=== PATIENT | female | born 2000 | race Caucasian/White ===

== ENCOUNTER 2024-03-22 10:45 | Emergency (ER) | payer BC, SELFPAY ==
[2024-03-22] VITALS (18 sets, daily range): BP systolic 112–123; BP diastolic 75–84; PULSE 79–116; TEMP 36.7; O2SAT 98–100; BMI 27.5
--- NOTE | 2024-03-22 11:07 | CT_ITS ---
[address] [address] Patient Name: ELEAZAR JIMENEZ MRN: [id number] date: 2000 Sex: F Assigned Patient Location: ED.MAIN Current Patient Location: Accession/Order Number: [id number] Exam Date: 03/22/2024 11:43 Report Date: 03/22/2024 12:15 At the request of: MARCELO JUSTICE Procedure: CT abdomen pelvis w con EXAMINATION: CT abdomen pelvis w con HISTORY: Pain, hematochezia COMPARISON: No relevant comparison available. TECHNIQUE: Axial, Coronal, and Sagittal images were obtained without and/or with IV contrast as indicated by examination type. Dose reduction techniques were achieved by using automated exposure control and/or adjustment of mA and/or kV according to patient size and/or use of iterative reconstruction technique. FINDINGS: LUNG BASES: No visible pulmonary or pleural disease. LIVER: No enlargement, atrophy, suspicious density, or significant focal lesion. BILIARY: No dilatation or calcification. PANCREAS: No lesion, fluid collection, or abnormal duct dilatation. SPLEEN: No enlargement or focal lesion. ADRENALS: No mass or enlargement. KIDNEYS: No mass, obstruction, or calcification. BOWEL/MESENTERY: Slightly edematous appearance and borderline wall thickening of the transverse colon through rectum, although this length of colon is completely empty. No surrounding inflammatory changes, free air, free fluid. Unremarkable stomach, small bowel, and appendix. AORTA/VASCULAR: No aneurysm or dissection. RETROPERITONEUM: No mass or adenopathy. LYMPH NODES: No adenopathy. URINARY BLADDER: No visible focal wall thickening, lesion, or calculus. PELVIC ORGANS: 1.8 cm irregular cyst within right ovary, likely collapsing follicle. 2.0 cm cyst versus dominant follicle within left ovary. Slightly thickened and poorly defined endometrial cavity, 16 mm. Trace amount of fluid within pelvic cul-de-sac. ABDOMINAL WALL: No mass or hernia. BONES: No bony lesion or fracture. OTHER: Negative. CT/CT abdomen pelvis w con IMPRESSION: 1. Suspect mild colitis. 2. Thickened endometrium with poorly defined margins; correlate with patient's menstrual cycle. If abnormally tender consider pelvic inflammatory disease. 3. Bilateral ovarian cysts of questionable clinical significance. Electronically authenticated by: RAGHU RAYO Date: 03/22/2024 12:15
--- NOTE | 2024-03-22 11:12 | ED_ITS ---
HPI - Abdominal Pain General Chief Complaint: Abdominal Pain Stated Complaint: LOWER ABDOMINAL PAIN, BLOOD IN STOOL, VOMITING Time Seen by Provider: 03/22/24 10:56 Source: patient Mode of arrival: walk-in History of Present Illness HPI narrative: 23-year-old female presents for abdominal pain which started during the middle of the night. She had blood in her stool and she vomited some blood as well. She has had issues like this in the past and at one point was anemic and had to have a blood transfusion. She had endoscopy which did not show any specific findings. She is not sure if she had upper endoscopy or not but she had colon oscopy. Some of the history is provided by her parents who accompany her. The pain is in the mid abdomen and it is moderate. Related Data Previous Rx's ?Medication ?Instructions ?Recorded acetaminophen 300 mg-codeine 30 mg 1 tab PO Q6H PRN pain 5 days #20 03/22/24 tablet tabs ciprofloxacin HCl 500 mg tablet 500 mg PO Q12H #20 tabs 03/22/24 (Cipro) metronidazole 500 mg tablet 500 mg PO TID #30 tabs 03/22/24 ondansetron 4 mg disintegrating 4 mg PO Q6H PRN nausea and 03/22/24 tablet vomiting #20 tabs Allergies Allergy/AdvReac Type Severity Reaction Status Date / Time No Known Drug Allergies Allergy Verified 03/22/24 10:55 Review of Systems ROS Narrative A ten point review of systems is negative except as noted above. PFSH PFSH Social History Little interest or pleasure in doing things: not at all Feeling down, depressed, or hopeless: not at all Exam Narrative Exam Narrative: Nurses note and vital signs reviewed and patient is not hypoxic. General: The patient appears in no apparent distress. Skin: Warm, dry, no pallor noted. There is no rash noted. Head: Normocephalic, atraumatic Eye: Normal conjunctiva, no drainage Ears, Nose, Mouth, and Throat: oral mucosa is moist. Nares patent. Cardiovascular: Regular Rate and Rhythm Respiratory: Patient is in no distress, no accessory muscle use, lungs are clear to auscultation, no wheezing, rales or rhonchi Back: non-tender GI: Mild tenderness in the mid abdomen without distention or masses Musculoskeletal: The patient has no evidence of calf tenderness, no pitting edema, symmetrical pulses noted bilaterally Neurological: A&O, normal speech Psychiatric: Cooperative Constitutional Vital Signs, click to edit/add: Last Vital Signs Temp 98.1 F 03/22/24 10:51 Pulse 95 H 03/22/24 11:55 Resp 21 H 03/22/24 11:55 BP 112/75 03/22/24 11:56 Pulse Ox 99 03/22/24 10:52 O2 Del Method Room Air 03/22/24 10:51 Course Vital Signs Vital signs: Vital Signs Temperature 98.1 F 03/22/24 10:51 Pulse Rate 116 H 03/22/24 10:51 Respiratory Rate 16 03/22/24 10:51 Blood Pressure 123/84 03/22/24 10:51 Pulse Oximetry 100 03/22/24 10:51 Oxygen Delivery Method Room Air 03/22/24 10:51 Temperature 98.1 F 03/22/24 10:51 Pulse Rate 95 H 03/22/24 11:55 Respiratory Rate 21 H 03/22/24 11:55 Blood Pressure 112/75 03/22/24 11:56 Pulse Oximetry 99 03/22/24 10:52 Oxygen Delivery Method Room Air 03/22/24 10:51 MDM - Abdominal Pain MDM Narrative Medical decision making narrative: Colitis is identified on the CAT scan. Her blood work is appropriate. She does not require admission to the hospital at this point. She was given IV Cipro and Flagyl here and prescribed Cipro and Flagyl for home as well as Tylenol 3 and Zofran. Findings are discussed thoroughly with the patient and her mother. She has had some issues with her menstrual cycles and seems to be having episodes of bleeding for a few days at a time, frequently. 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 Differential Diagnosis Differential diagnosis: Likely abdominal pain, constipation, diverticulitis, gastroenteritis and pancreatitis Lab Data Attestation: I reviewed the patient's lab results. Labs: Lab Results 03/22/24 Range/Units 10:57 WBC 9.4 (4.0-11.0) 10^3/uL RBC 5.09 (4.20-5.40) 10^6/uL Hgb 15.4 (12.0-16.0) g/dL Hct 44.0 (36.0-48.0) % MCV 86.4 (81.0-99.0) fL MCH 30.3 (26.7-34.0) pg MCHC 35.0 (29.9-35.2) g/dL RDW 12.2 (11.0-15.0) % Plt Count 269 (150-450) 10^3/uL MPV 9.8 (9.5-13.5) fL Neut % (Auto) 76.7 H (43.0-75.0) % Lymph % (Auto) 17.7 L (20.5-60.0) % [place] % (Auto) 4.3 (1.7-12.0) % Eos % (Auto) 0.2 L (0.9-7.0) % Baso % (Auto) 0.5 (0.2-2.0) % Neut # (Auto) 7.2 H (1.4-6.5) 10^3/uL Lymph # (Auto) 1.7 (1.2-3.8) 10^3/uL [place] # (Auto) 0.4 (0.3-0.8) 10^3/uL Eos # (Auto) 0.0 (0.0-0.7) 10^3/uL Baso # (Auto) 0.1 (0.0-0.1) 10^3/uL Abs Immat Gran (auto) 0.06 H (0.00-0.03) 10^3/uL Imm/Tot Granulo (auto) 0.6 H (0.0-0.5) % Sodium 140 (136-145) mmol/L Potassium 3.8 (3.5-5.1) mmol/L Chloride 106 (98-107) mmol/L Carbon Dioxide 21.1 (21.0-32.0) mmol/L Anion Gap 16.7 BUN 9.0 (7.0-18.0) mg/dL Creatinine 0.83 (0.55-1.02) mg/dL Est GFR ( Amer) >60 (>=60 mL/min/1.73m^2) Est GFR (Non-Af Amer) >60 (>=60 mL/min/1.73m^2) BUN/Creatinine Ratio 10.8 Glucose 93 (74-106) mg/dL Calcium 9.2 (8.5-10.1) mg/dL Total Bilirubin 0.5 (0.2-1.0) mg/dL Direct Bilirubin 0.1 (0.0-0.2) mg/dL AST 17 (15-37) U/L ALT 23 (14-59) U/L Alkaline Phosphatase 56 (46-116) U/L Total Protein 7.7 (6.4-8.2) g/dL Albumin 4.1 (3.4-5.0) g/dL Globulin 3.6 g/dL Albumin/Globulin Ratio 1.1 Amylase 80 (25-115) U/L Lipase 49.0 (16.0-77.0) U/L Serum HCG, Qual Negative (NEGATIVE) Imaging Data CT scan - abdomen: Radiologist's impression: ITS Impressions Abdomen/Pelvis CT 03/22/24 11:07 IMPRESSION: 1. Suspect mild colitis. 2. Thickened endometrium with poorly defined margins; correlate with patient's menstrual cycle. If abnormally tender consider pelvic inflammatory disease. 3. Bilateral ovarian cysts of questionable clinical significance. Electronically authenticated by: RAGHU RAYO Date: 03/22/2024 12:15 Discharge Plan Discharge Chief Complaint: Abdominal Pain Clinical Impression: Colitis Patient Disposition: Home, Self-Care Time of Disposition Decision: 13:10 Condition: Good Mode of Transportation: Private Vehicle Prescriptions / Home Meds: New metronidazole 500 mg tablet 500 mg PO TID Qty: 30 0RF acetaminophen-codeine 300-30 mg tablet 1 tab PO Q6H PRN (Reason: pain) 5 Days Qty: 20 0RF ciprofloxacin HCl [Cipro] 500 mg tablet 500 mg PO Q12H Qty: 20 0RF ondansetron 4 mg tablet,disintegrating 4 mg PO Q6H PRN (Reason: nausea and vomiting) Qty: 20 0RF Print Language: Thai Instructions: Colitis (ED) Referrals: Physician,Non-Staff, MD [Physician] - 1 week
[2024-03-22 11:14] LABS: Basophils Absolute Auto 0.1 10^3/uL (0.0-0.1); Basophils Percent Auto 0.5 % (0.2-2.0); Eosinophils Percent Auto 0.2 % (0.9-7.0); Hemoglobin 15.4 g/dL (12.0-16.0); Immature Granulocytes Abs Auto 0.06 10^3/uL (0.00-0.03); Immature Granulocytes Pct Auto 0.6 % (0.0-0.5); Lymphocytes Absolute Auto 1.7 10^3/uL (1.2-3.8); Lymphocytes Percent Auto 17.7 % (20.5-60.0); Mean Corpuscular Hemoglobin 30.3 pg (26.7-34.0); Mean Corpuscular Volume 86.4 fL (81.0-99.0); Mean Platelet Volume 9.8 fL (9.5-13.5); Monocytes Absolute Auto 0.4 10^3/uL (0.3-0.8); Monocytes Percent Auto 4.3 % (1.7-12.0); Neutrophils Absolute Auto 7.2 10^3/uL (1.4-6.5); Neutrophils Percent Auto 76.7 % (43.0-75.0); Platelet Count 269 10^3/uL (150-450); Red Blood Count 5.09 10^6/uL (4.20-5.40); Red Cell Distribution Width 12.2 % (11.0-15.0); White Blood Count 9.4 10^3/uL (4.0-11.0)
[2024-03-22 11:24] LABS: HCG Qualitative NEGATIVE (NEGATIVE); Internal Control Within Normal Limits
[2024-03-22 11:25] LABS: Alanine Aminotransferase 23 U/L (14-59); Albumin Globulin Ratio 1.1; Albumin Level 4.1 g/dL (3.4-5.0); Alkaline Phosphatase 56 U/L (46-116); Amylase 80 U/L (25-115); Anion Gap 16.7; Aspartate Amino Transferase 17 U/L (15-37); BUN Creatinine Ratio 10.8; Bilirubin Direct 0.1 mg/dL (0.0-0.2); Bilirubin Total 0.5 mg/dL (0.2-1.0); Calcium 9.2 mg/dL (8.5-10.1); Carbon Dioxide 21.1 mmol/L (21.0-32.0); Chloride 106 mmol/L (98-107); Estimated GFR (African America >60 (>=60 mL/min/1.73m^2); Estimated GFR (Non-African Ame >60 (>=60 mL/min/1.73m^2); Globulin 3.6 g/dL; Glucose 93 mg/dL (74-106); Potassium 3.8 mmol/L (3.5-5.1); Sodium 140 mmol/L (136-145); Total Protein 7.7 g/dL (6.4-8.2)
[2024-03-22] MEDS: PANTOPRAZOLE SODIUM 40 MG VIAL IV (11:34)
[2024-03-22] MEDS: CIPROFLOXACIN IN 5 % DEXTROSE 400 MG/200 ML PREMIX 200 MG IV (12:33)
[2024-03-22] MEDS: METRONIDAZOLE/SODIUM CHLORIDE 500 MG/100 ML PREMIX 100 MG IV (13:33)
== END 2024-03-22 14:37 | disposition home or self-care (01) ==
PROVIDERS: Emergency Provider Emergency Medicine; PCP Family Medicine
DX: K52.9 Noninfective gastroenteritis and colitis, unspecified (principal); R93.89 Abnormal findings on diagnostic imaging of other specified body structures; N83.202 Unspecified ovarian cyst, left side; N83.201 Unspecified ovarian cyst, right side
CPT/HCPCS: 36415; 74177; 80048; 80076; 82150; 83690; 84703; 85025; 96365; 96367; 96375; 99285; J0744; J1836; Q9967

== ENCOUNTER 2024-08-18 12:01 | Outpatient (REF) | payer SELFPAY ==
[2024-08-22 13:08] LABS: Age Gdln ACOG Testing Note (.); IGP, rfx Aptima HPV ASCU Note (.)
== END 2024-08-18 12:02 | disposition home or self-care (01) ==
LOC: LAB 12:01
PROVIDERS: PCP Family Medicine; Visit Provider Obstetrics & Gynecology
DX: Z01.419 Encounter for gynecological examination (general) (routine) without abnormal findings (principal)
CPT/HCPCS: 88175

== ENCOUNTER 2024-09-12 12:31 | Outpatient (RCR) | payer OTHER, SELFPAY ==
[2024-09-12 14:04] LABS: HCG Quantitative 230 mIU/mL
[2024-09-15 09:04] LABS: HCG Quantitative 705 mIU/mL
== END 2024-09-25 10:53 | disposition home or self-care (01) ==
LOC: LAB 12:31
PROVIDERS: PCP Family Medicine; Visit Provider Obstetrics & Gynecology
DX: N92.6 Irregular menstruation, unspecified (principal)
CPT/HCPCS: 36415; 84702

== ENCOUNTER 2024-10-14 09:22 | Outpatient (OUT) | payer OTHER, SELFPAY ==
--- OUTSIDE RECORDS SUMMARY | 2024-10-14 09:24 | XMS_ITS | CCD ---
Author Organization [facility] Care Team Providers Care Crawler Crane Operator Name Role Phone REQUEST, DR PAGE LISTED Consulting Unavaila ble REQUEST, DR PAGE LISTED Admitting Unavaila ble RODRIGUEZ, DR STEFFANY Harrison Primary Care Unavailable REQUEST, DR PAGE LISTED Attending Unavaila ble REQUEST, DR PAGE LISTED Attending Unavaila ble REQUEST, DR PAGE LISTED Consulting Unavaila ble RODRIGUEZ, DR STEFFANY Harrison Primary Care Unavailable REQUEST, DR PAGE LISTED Admitting Unavaila ble BALL, DR DUGGAN Attending Unavailable BALL, DR DUGGAN Consulting Unavailable RODRIGUEZ, DR STEFFANY Harrison Primary Care Unavailable BALL, DR DUGGAN Admitting Unavailable ROSS, GLEN Admitting Unavailable ROSS, GLEN Attending Unavailable ROSS, GLEN Consulting Unavailable RODRIGUEZ, DR STEFFANY Harrison Primary Care Unavailable Unavailable Primary Care Provider LUIS FERNANDO Lee Attending Unavailable Medications Current Medications Medication Drug Class(es) Dates Sig (Normalized) Sig (Original) docusate sodium 100 mg oral capsule (1 source) Start: 10-11-2024 End: 01-09-2025 take 1 capsule by mouth twice daily as needed for constipation docusate sodium (Colace) 100 MG capsule Indications: Constipation, unspecified constipation type Take 1 capsule (100 mg) by mouth 2 (two) times a day as needed for constipation 30 capsule 2 10/11/2024 01/09/2025 Active minocycline 50 mg oral capsule (5 sources) Tetracycline-cla ss Drug Start: 11-29-2023 End: 10-13-2024 take 1 capsule by mouth twice daily minocycline 50 MG capsule Indications: Acne, unspecified acne type TAKE 1 CAPSULE BY MOUTH TWICE A DAY 60 capsule 2 11/29/2023 10/13/2024 Discontinued (Therapy completed) Vit-Fe Fumarate-FA ( Vitamins) 28-0.8 MG tablet (2 sources) Start: 09-12-2024 End: 09-12-2025 take 1 tablet by mouth once daily Vit-Fe Fumarate-FA ( Vitamins) 28-0.8 MG tablet Indications: Missed menses Take 1 tablet by mouth Daily 30 tablet 11 09/12/2024 09/12/2025 Active Completed/Discontinued Medications Medication Drug Class(es) Dates Sig (Normalized) Sig (Original) ethinyl estradiol 0.03 mg / levonorgestrel 0.15 mg oral tablet (2 sources) Progestin, Estrogen, Progestin-containi ng Intrauterine Device Start: 07-13-2024 End: 10-05-2024 levonorgestrel-eth inyl estradiol (Altavera) 0.15-30 MG-MCG tablet Indications: Encounter for other general counseling and advice on contraception TAKE 1 TABLET BY MOUTH EVERY DAY FOR 84 DAYS 84 tablet 3 07/13/2024 08/18/2024 Discontinued (Therapy completed) Ethinyl Estradiol / norgestimate (2 sources) Progestin, Estrogen Start: 09-01-2023 End: 08-18-2024 take 1 tablet by mouth once daily norgestimate-ethin yl estradiol (Ortho Tri-Cyclen LO) 0.18/0.215/0.25 MG-25 MCG tablet Indications: Encounter for contraceptive management, unspecified type Take 1 tablet by mouth Daily 84 tablet 09/01/2023 08/18/2024 Discontinued (Therapy completed) Start: 09-01-2023 take 1 tablet by luis miguel th once daily norgestimate-ethinyl estradiol (Ortho Tri-Cyclen LO) 0.18/0.215/0.25 MG-25 MCG tablet Indications: Encounter for contraceptive management, unspecified type Take 1 tablet by mouth Daily 84 tablet 09/01/2023 Active Problems Active Problems Problem Classification Problem Date Documented Da te Episodic/Chronic Immunizations and screening for infectious disease (4 sources) Encounter for immunization; Translations: [ENCOUNTER FOR IMMUNIZATION] Onset: 04-08-2021 Episodic Menstrual disorders (7 sources) Irregular periods; Translations: [Irregular menstruation, unspecified] Onset: 08-18-2024 08-18-2024 Chronic Other female genital disorders (5 sources) Allegra; Translations: [Allegra] Onset: 08-18-2024 08-18-2024 Chronic Other and delivery including normal (2 sources) ; Translations: [Encounter for supervision of normal , unspecified, unspecified trimester] 10-13-2024 Episodic Unclassified (3 sources) CONTACT W/AND (SUSP) EXPOS COVID-19; Translations: [CONTACT W/AND (SUSP) EXPOS COVID-19] Onset: 04-27-2021 Past or Other Problems Problem Classification Problem Date Documented Da te Episodic/Chronic Unclassified (1 source) CONTACT W/AND (SUSP) EXPOS COVID-19; Translations: [CONTACT W/AND (SUSP) EXPOS COVID-19] Onset: 04-21-2021 Results Test Name Value Interpretation Reference Range Facility HCG ( test) Ql (U)o n 10-13-2024 Interpretation and review of laboratory results Abnormal [facility] re Preg Test, Ur Positive Negative [facility] Urinalysis macro (dipstick) panel (U)on 10-13-2024 Bilirubin, UA Negative Negative - 4(70) +++ mg/dL [facility] Blood, UA Positive Negative - 50 Iam/mcL [facility] Comment on above: trace Clarity, UA Clear [facility] re Color, [facility]A Yellow [facility] Glucose, [facility] Negative Negative - 1999(110) ++++ mg/dL [facility] Ketones, UA Negative Negative - 160(16) ++++ mg/dL [facility] Leukocytes, UA Positive Negative - 500+++ Zakia/mcL [facility] Comment on above: small Nitrite, UA Negative Negative - Positive [facility] pH, UA 6.5 5 - 9 [facility] Protein, UA Negative Negative - 1999(20) ++++ mg/dL [facility] Spec Grav, UA 1.02 1 - 1.03 [facility] Urobilinogen, UA 0.2 0.2 - 12 mg/dL [facility]H PREG QUANT HCGon 025 HCG QUANTITATIVE 230 mIU/mL [facility] Comment on above: 5-50 0.2-1 WEEK 50-500 1-2 WEEKS 100-5,000 2-3 WEEKS 500-10,000 3-4 WEEKS 1,000-50,000 4-5 WEEKS 10,000-100,000 5-6 WEEKS 15,000-200,000 6-8 WEEKS 10,000-100,000 2-3 MONTHS [facility] e IGP,APTIMA HPV,AGE GDLNon AGE GDLN ACOG TESTING Note . [facility] Comment on above: TESTS RESULT FLAG UN [facility] REF RANGE LAB Clinician Provided Cytology Information Source.............Cervix;Endocervix No. of containers..01 ThinPrep Vial Age Algo ACOG Cheli... FLAG LEGEND: L-Low Normal,H-High Normal,LL-Alert Low,HH-Alert High <-Panic Low,>-Panic High,A-Abnormal,AA-Critical Abnormal Performed at: 01 =G [facility] [place] [address] Bebe Pleitez MD, IGP, RFX APTIMA HPV ASCU Note . [facility] Comment on above: TESTS RESULT FLAG UN ITS REF RANGE LAB DIAGNOSIS: 02 NEGATIVE FOR INTRAEPITHELIAL LESION OR MALIGNANCY. Specimen adequacy: 02 Satisfactory for evaluation. Endocervical and/or squamous metaplastic cells (endocervical component) are present. Performed by: 02 Paulo Loya Metal Bonding Crib Attendant (ASCP) . 02 Note: Note 02 The Pap smear is a screening test designed to aid in the detection of premalignant and malignant conditions of the uterine cervix. It is not a diagnostic procedure and should not be used as the sole means of detecting cervical cancer. Both false-positive and false-negative reports do occur. Test Methodology: Note 02 This liquid based ThinPrep(R) pap test was screened with the use of an image guided system. . 02 The HPV DNA reflex criteria were not met with this specimen result therefore, no HPV testing was performed. FLAG LEGEND: L-Low Normal,H-High Normal,LL-Alert Low,HH-Alert High <-Panic Low,>-Panic High,A-Abnormal,AA-Critical Abnormal Performed at: [address] [id number] Bebe Pleitez MD, Performed at: =G - [facility] [id number] Yarn Tester: Bebe Pleitez MD, Phone: [phone] Performed at: [facility] [address] [id number] Yarn Tester: Bebe Pleitez MD, Phone: [phone] [facility]SPAT[facility] CERVIX ENDOCERVIX [facility] Covid-19 PCR ([facility])on 03-27 SARS-CoV-2 (COVID-19) RNA SHANTHI+probe Ql (Unsp spec) Not detected Normal NOT DETECTED [facility] Comment on above: Result Comment: This test is not yet approved or cleared by the [place] FDA. When there are no FDA-approved or cleared tests available, and other criteria are met, FDA can make tests available under an emergency access mechanism called an Emergency Use Authorization (EUA). The EUA for this test is supported by the Track Service Worker of Health and Human Service's (HHS's) declaration that circumstances exist to justify the emergency use of in vitro diagnostics for the detection and/or diagnosis of the virus that causes COVID-19. This EUA will remain in effect (meaning this test can be used) for the duration of the COVID-19 declaration justifying emergency of IVDs, unless it is terminated or revoked by FDA (after which the test may no longer be used). When diagnostic testing is negative, the possibility of a false negative should be considered in the context of a patient's recent exposures and the presence of clinical signs and symptoms consistent with SARS-CoV-2. Performed By: #### C TB #### [facility] [address] [place] [address] Dr. Chitra Pineda OBSOLETEon 09-12-2019 OBSOLETE Refill ([place]) DARIEN JIMENEZ ([id number]) 1 F Date Time Provider Department 09/12/19 DOUG OLVERA During your visit today, we recorded the following information about you: Allergies As of Date: 09/12/2019 (No Known Allergies) Date Reviewed: 06/23/2019 Reviewed by: Swathi Keyes - Fully Assessed Reason for Visit: Refill Request [94] Order(s):cyanocobalami n (VITAMIN B-12) 1,000 mcg/mLInject 1 mL intramuscularly once every month for 3 doses.Disp: 3 mLRfl: 0 Prescriptions as of 09/12/2019 Sig: CYANOCOBALAMIN (VIT B-12) 1,0* Inject 1 mL intramuscularly o* FERROUS SULFATE 325 MG (65 MG* Take 1 tablet by mouth twice * PANTOPRAZOLE 40 MG TABLET,DEL* DOXYCYCLINE HYCLATE 100 MG CA* Take 100 mg by mouth twice da* LEVONORGESTREL 0.15 MG-ETHINY* Take 1 tablet by mouth once d* Problem List As Of Date 09/12/2019 Noted Resolved Chest pain, unspecified [R07.9] 05/05/2019 Iron deficiency anemia [D50.9] 05/01/2019 Weakness [R53.1] 05/05/2019 Tachycardia [R00.0] 05/05/2019 Abnormal electrocardiogram (ECG) (EKG) [R94.31] 05/05/2019 Dyspnea on exertion [R06.00] 05/05/2019 Other fecal abnormalities [R19.5] 05/05/2019 Prescriptions ordered this encounter Disp Refills Start End CYANOCOBALAMIN (VIT B-12) 1,000 MCG/* 3 mL 0 09/13/2019 11/13/2019 Route: INTRAMUSCULA Sig: Inject 1 mL intramuscularly once every month for 3 doses. Medications Discontinued During This Encounter cyanocobalamin (VITAMIN B-12) 1,000 * 3 mL 0 06/23/2019 09/13/2019 Route: INTRAMUSCULAR Sig: Inject 1 mL intramuscularly once every month for 3 doses. Disc: Reason for discontinue is not on file. Encounter Status:Closed by DOUG OLVERA [facility] ([place]) DARIEN JIMENEZ ([id number]) 1 F Date Time Provider Department 06/23/19 4:00 PM DOUG OLVERA During your visit today, we recorded the following information about you: Temperature Pulse Respiration Blood pressure 98.6 degrees 78/minute 18/minute 125/71 Weight Height 62.6 kg 1.61 m July Keyes 06/23/2019 4:00 PM Signed Patient states still having bouts of fatigue and SOB when exercising. Doug Olvera MD 06/23/2019 5:02 PM Signed Some elements of this note have been reviewed and copied from clinic note dated May 24, 2019. CC: Iron deficiency anemia. ASSESSMENT: 19 yo woman with symptomatic iron deficiency anemia due to menstrual blood loss and possible poor absorption of iron. Work up for celiac disease revealed no evidence of Celiac disease. She is responding nicely to oral iron but her B12 level is very low. This may have to do with her chronic low dose antibiotic use. PLAN: 1. Continue oral iron 2. Proceed with B12 IM x 3 weekly doses. 3. Recheck labs in 6 months with PCP. 4. Follow up PRN. CC: severe Iron deficiency anemia HPI: Updated Visit, June 23, 2019: Alf returns with her father Cody to review findings and have noted that her hemoglobin has recovered to 12.8 and her iron studies are also improving. However her vitamin B12 level is less than 300 on a fairly normal diet. I'm not exactly sure why she is not absorbing B12 on a normal diet but I have a feeling it may be related to her chronic and low-dose antibiotic use as treatment for acne vulgaris. She still feels fatigued which may be related to the low B12 level or residual recovery from mononucleosis. Initial Visit, May 24, 2019: Darien Jimenez presents today at the request of Dr. Rodriguez for oncology evaluation. She is a 19 year old female who presents accompanied by her mother Arnav and father Cody. She is a history of heavy menstrual periods and therefore was placed on control pills in July 2018 and is on doxycycline for acne vulgaris. She is a history of mononucleosis and 2017. She was seen in the emergency room on May 01, 2019 for several month history of progressive dyspnea with light exertion and a one-month history of chest tightness and pain with dyspnea. During her ER visit she was noted to have a hemoglobin of 7.2 MCV 64 platelets 389 white blood cell count 6.0 and required 2 units packed red blood cells for an abnormal EKG consistent with sinus tachycardia. Ferritin was 2.0 iron 9.0 TIBC 490 iron saturation 1.8% she'll elevated d-dimer and had a CT angiogram that demonstrated 2 small 4 mm nodules in the right lung most likely postinflammatory or infectious but otherwise no evidence of pulmonary emboli. Additionally she was found to have a Hemoccult that was positive for occult blood. She presents today approximate 3 weeks following her ER visit it is still having some mild dyspnea as well as tachycardia. She had an endoscopy with colonoscopy yesterday there were some concerns for possible celiac disease. Biopsies results are pending. I reviewed the possible risks for her significant anemia and primarily focused on heavy menses which she is currently being treated for. There is a question of whether or not the doxycycline could've cause some of this but there is a very very low incidence of doxycycline-induced hemolysis is highly unlikely. More likely is her inability to absorb enough iron to keep up with her lifetime blood loss. She'll likely take some time to equilibrate and have recommended that she continue her oral iron at this time making sure that she's not interfering with Prilosec and keeping an acid environment in order to optimize her iron absorption. ECOG PERFORMANCE STATUS: 1 REVIEW OF SYSTEMS Per HPI and otherwise negative by full review organ systems. MEDICATIONS: ferrous sulfate 325 mg (65 mg iron) tablet Take 1 tablet by mouth twice daily. pantoprazole DR (PROTONIX) 40 mg tablet doxycycline hyclate (VIBRAMYCIN) 100 mg capsule Take 100 mg by mouth twice daily. levonorgestrel-ethinyl estradiol (LEVORA 0.15/30, 28,) 0.15-0.03 mg per tab Take 1 tablet by mouth once daily. ALLERGIES: ALLERGIES No Known Allergies PHYSICAL EXAMINATION: Vitals: BP 125/71 Pulse 78 Temp (Src) 98.6 (Oral) Resp 18 Ht 5' 3.386 (1.61m) Wt 138 lb (62.6kg) SpO2 100% BMI 24.15 kg/(m2). Body surface area is 1.67 meters squared. General Appearance: Well appearing, alert, in no acute distress, well-hydrated, well nourished.. Skin: Skin color, texture, turgor normal, no suspicious rashes or lesions. Small medrano of acne and bumps showing on her forehead and cheeks. Eyes: Anicteric sclera. Pupils are equally round and reactive to light. Extraocular movements are intact. . Neck: Supple, no adenopathy; thyroid symmetric, normal size, no bruits. Musculoskeletal: No joint swelling, deformity. Neurologic: Gait normal. Nonfocal. LABORATORY VALUES: Reviewed in HPI RADIOLOGY REVIEW: Images reviewed by me in the presence of patient. DIAGNOSIS: (D50.0) Iron deficiency anemia due to chronic blood loss (primary encounter diagnosis) (D51.0) Vitamin B12 deficiency anemia due to intrinsic factor deficiency Doug Olvera MD CC: Steffany Rodriguez MD [id number] [facility] [id number] Referring Provider: DOUG OLVERA [[id number]] Allergies As of Date: 06/23/2019 (No Known Allergies) Date Reviewed: 06/23/2019 Reviewed by: Swathi Keyes - Fully Assessed Reason for Visit: Anemia [6] Cmt: follow up lab Primary Visit Diagnosis:Iron deficiency anemia due to chronic blood loss [D50.0] Other Visit Diagnosis:Vitamin B12 deficiency anemia due to intrinsic factor deficiency [D51.0] Order(s):cyanocobalami n (VITAMIN B-12) 1,000 mcg/mL solnInject 1 mL intramuscularly once every month for 3 doses.Disp: 3 mLRfl: 0 Disposition: Return if symptoms worsen or fail to improve. Follow-up and Disposition History Recorded Prescriptions as of 06/23/2019 Sig: FERROUS SULFATE 325 MG (65 MG* Take 1 tablet by mouth twice * PANTOPRAZOLE 40 MG TABLET,DEL* DOXYCYCLINE HYCLATE 100 MG CA* Take 100 mg by mouth twice da* LEVONORGESTREL 0.15 MG-ETHINY* Take 1 tablet by mouth once d* CYANOCOBALAMIN (VIT B-12) 1,0* Inject 1 mL intramuscularly o* Problem List As Of Date 06/23/2019 Noted Resolved Chest pain, unspecified [R07.9] 05/05/2019 Iron deficiency anemia [D50.9] 05/01/2019 Weakness [R53.1] 05/05/2019 Tachycardia [R00.0] 05/05/2019 Abnormal electrocardiogram (ECG) (EKG) [R94.31] 05/05/2019 Dyspnea on exertion [R06.09] 05/05/2019 Other fecal abnormalities [R19.5] 05/05/2019 Visit Notes: >> Swathi Keyes WedJun 23, 2019 3:58 PM Status: Signed Patient states still having bouts of fatigue and SOB when exercising. Encounter Status:Closed by DOUG OLVERA MD on 06/23/19 [facility] PROGRESSon 06-23-2019 PROGRESS HNO ID: [id number] Author: Doug Olvera Service: ? Author Type: Physician Type: Progress Notes Filed: 06/23/2019 5:02 PM Note Text: Some elements of this note have been reviewed and copied from clinic note dated May 24, 2019. CC: Iron deficiency anemia. ASSESSMENT: 19 yo woman with symptomatic iron deficiency anemia due to menstrual blood loss and possible poor absorption of iron. Work up for celiac disease revealed no evidence of Celiac disease. She is responding nicely to oral iron but her B12 level is very low. This may have to do with her chronic low dose antibiotic use. PLAN: 1. Continue oral iron 2. Proceed with B12 IM x 3 weekly doses. 3. Recheck labs in 6 months with PCP. 4. Follow up PRN. CC: severe Iron deficiency anemia HPI: Updated Visit, June 23, 2019: Alf returns with her father Cody to review findings and have noted that her hemoglobin has recovered to 12.8 and her iron studies are also improving. However her vitamin B12 level is less than 300 on a fairly normal diet. I'm not exactly sure why she is not absorbing B12 on a normal diet but I have a feeling it may be related to her chronic and low-dose antibiotic use as treatment for acne vulgaris. She still feels fatigued which may be related to the low B12 level or residual recovery from mononucleosis. Initial Visit, May 24, 2019: Darien Jimenez presents today at the request of Dr. Rodriguez for oncology evaluation. She is a 19 year old female who presents accompanied by her mother Arnav and father Cody. She is a history of heavy menstrual periods and therefore was placed on control pills in July 2018 and is on doxycycline for acne vulgaris. She is a history of mononucleosis and 2017. She was seen in the emergency room on May 01, 2019 for several month history of progressive dyspnea with light exertion and a one-month history of chest tightness and pain with dyspnea. During her ER visit she was noted to have a hemoglobin of 7.2 MCV 64 platelets 389 white blood cell count 6.0 and required 2 units packed red blood cells for an abnormal EKG consistent with sinus tachycardia. Ferritin was 2.0 iron 9.0 TIBC 490 iron saturation 1.8% she'll elevated d-dimer and had a CT angiogram that demonstrated 2 small 4 mm nodules in the right lung most likely postinflammatory or infectious but otherwise no evidence of pulmonary emboli. Additionally she was found to have a Hemoccult that was positive for occult blood. She presents today approximate 3 weeks following her ER visit it is still having some mild dyspnea as well as tachycardia. She had an endoscopy with colonoscopy yesterday there were some concerns for possible celiac disease. Biopsies results are pending. I reviewed the possible risks for her significant anemia and primarily focused on heavy menses which she is currently being treated for. There is a question of whether or not the doxycycline could've cause some of this but there is a very very low incidence of doxycycline-induced hemolysis is highly unlikely. More likely is her inability to absorb enough iron to keep up with her lifetime blood loss. She'll likely take some time to equilibrate and have recommended that she continue her oral iron at this time making sure that she's not interfering with Prilosec and keeping an acid environment in order to optimize her iron absorption. ECOG PERFORMANCE STATUS: 1 REVIEW OF SYSTEMS Per HPI and otherwise negative by full review organ systems. MEDICATIONS: ferrous sulfate 325 mg (65 mg iron) tablet Take 1 tablet by mouth twice daily. pantoprazole DR (PROTONIX) 40 mg tablet doxycycline hyclate (VIBRAMYCIN) 100 mg capsule Take 100 mg by mouth twice daily. levonorgestrel-ethinyl estradiol (LEVORA 0.15/30, 28,) 0.15-0.03 mg per tab Take 1 tablet by mouth once daily. ALLERGIES: ALLERGIES No Known Allergies PHYSICAL EXAMINATION: Vitals: BP 125/71 Pulse 78 Temp (Src) 98.6 (Oral) Resp 18 Ht 5' 3.386 (1.61m) Wt 138 lb (62.6kg) SpO2 100% BMI 24.15 kg/(m2). Body surface area is 1.67 meters squared. General Appearance: Well appearing, alert, in no acute distress, well-hydrated, well nourished.. Skin: Skin color, texture, turgor normal, no suspicious rashes or lesions. Small medrano of acne and bumps showing on her forehead and cheeks. Eyes: Anicteric sclera. Pupils are equally round and reactive to light. Extraocular movements are intact. . Neck: Supple, no adenopathy; thyroid symmetric, normal size, no bruits. Musculoskeletal: No joint swelling, deformity. Neurologic: Gait normal. Nonfocal. LABORATORY VALUES: Reviewed in HPI RADIOLOGY REVIEW: Images reviewed by me in the presence of patient. DIAGNOSIS: (D50.0) Iron deficiency anemia due to chronic blood loss (primary encounter diagnosis) (D51.0) Vitamin B12 deficiency anemia due to intrinsic factor deficiency Doug Olvera MD CC: Steffany Rodriguez MD [address] [place] [address] [place] [id number] [facility] CNOVSPon 05-24-2019 CNOVSP Visit (SP) Office ([place]) DARIEN JIMENEZ ([id number]) 1 F Date Time Provider Department 05/24/19 4:15 PM DOGU OLVERA During your visit today, we recorded the following information about you: Temperature Pulse Respiration Blood pressure 97.3 degrees 79/minute 18/minute 127/73 Weight Height Last Period 61 kg 1.61 m 05/10/19 Doug Olvera MD 05/25/2019 12:15 PM Signed Consultation requested by Dr. Rodriguez for an opinion regarding Ms. Darien Jimenez, and my final recommendations will be communicated back to the requesting physician by way of shared medical record or letter via [place] mail. ASSESSMENT AND PLAN: ASSESSMENT: 19 yo woman with symptomatic iron deficiency anemia due to menstrual blood loss and possible poor absorption of iron. Work up for celiac disease is pending and biopsies from EGD and Colonoscopy are pending from 05/23/2019. PLAN: 1. Continue oral iron 2. F/U in 4 weeks with labs. Preceding. 3. Obtain results of GI workup and biopsies from [place]. Doug Olvera MD CC: severe Iron deficiency anemia HPI: Darien Jimenez presents today at the request of Dr. Rodriguez for oncology evaluation. She is a 19 year old female who presents accompanied by her mother Arnav and father Cody. She is a history of heavy menstrual periods and therefore was placed on control pills in July 2018 and is on doxycycline for acne vulgaris. She is a history of mononucleosis and 2017. She was seen in the emergency room on May 01, 2019 for several month history of progressive dyspnea with light exertion and a one-month history of chest tightness and pain with dyspnea. During her ER visit she was noted to have a hemoglobin of 7.2 MCV 64 platelets 389 white blood cell count 6.0 and required 2 units packed red blood cells for an abnormal EKG consistent with sinus tachycardia. Ferritin was 2.0 iron 9.0 TIBC 490 iron saturation 1.8% she'll elevated d-dimer and had a CT angiogram that demonstrated 2 small 4 mm nodules in the right lung most likely postinflammatory or infectious but otherwise no evidence of pulmonary emboli. Additionally she was found to have a Hemoccult that was positive for occult blood. She presents today approximate 3 weeks following her ER visit it is still having some mild dyspnea as well as tachycardia. She had an endoscopy with colonoscopy yesterday there were some concerns for possible celiac disease. Biopsies results are pending. I reviewed the possible risks for her significant anemia and primarily focused on heavy menses which she is currently being treated for. There is a question of whether or not the doxycycline could've cause some of this but there is a very very low incidence of doxycycline-induced hemolysis is highly unlikely. More likely is her inability to absorb enough iron to keep up with her lifetime blood loss. She'll likely take some time to equilibrate and have recommended that she continue her oral iron at this time making sure that she's not interfering with Prilosec and keeping an acid environment in order to optimize her iron absorption. ECOG PERFORMANCE STATUS: 1 REVIEW OF SYSTEMS Per HPI and otherwise as noted below. CONSTITUTIONAL: No fevers, chills, nightsweats, unintended weight loss HEENT: Denies frequent or severe heaches, nasal congestion/sinus symptoms, problematic allergy problems. EYES: No diplopia or blurry vision. CARDIOVASCULAR: No chest pain, PND, ankle edema. PULM: No unexplained cough. GI: No dysphagia/odynophagia, problematic reflux, constipation, diarrhea, changes in stool habits, hematochezia, melena. : No new urinary complaints, including dysuria, gross hematuria or pyuria. NEURO: No new balance problems, peripheral weakness/paresthesias or numbness of concern. MUSC-SKEL: No new joint pain, swelling, or erythema. PSY: No concerns regarding depression, anxiety or panic. INTEGUMENTARY: No new skin changes (rash, new or changing mole, new growth) HEMATOLOGIC/LYMPHATIC/ IMMUNOLOGIC:Negative for prolonged bleeding, bruising easily or swollen nodes MEDICATIONS: levonorgestrel-ethinyl estradiol (LEVORA 0.15/30, 28,) 0.15-0.03 mg per tab Take 1 tablet by mouth once daily. ALLERGIES: ALLERGIES Allergies not on file PHYSICAL EXAMINATION: Vitals: There were no vitals taken for this visit. There is no height or weight on file to calculate BSA. General Appearance: Well appearing, alert, in no acute distress, well-hydrated, well nourished.. Skin: Skin color, texture, turgor normal, no suspicious rashes or lesions. Eyes: Anicteric sclera. Pupils are equally round and reactive to light. Extraocular movements are intact. . Ears: External ears normal, canals clear. Neck: Supple, no adenopathy; thyroid symmetric, normal size, no bruits. Lungs: lungs clear to auscultation. No wheezing, rhonchi, rales. Heart: RRR without murmur, gallop, or rubs. No ectopy. Abdomen: Normal abdominal exam, Abdomen soft, non-tender. Bowel sounds normal. No masses, organomegaly. Extremities: No deformities, edema, skin discoloration, clubbing or cyanosis. Good capillary refill. . Musculoskeletal: No joint swelling, deformity, or tenderness. Peripheral Pulses: Normal. Neurologic: Gait normal. Reflexes normal and symmetric. Sensation grossly intact.. Lymph Nodes: No cervical lymphadenopathy, No supraclavicular lymphadenopathy and No axillary lymphadenopathy.. LABORATORY VALUES: Reviewed in HPI RADIOLOGY REVIEW: Images reviewed by me in the presence of patient. DIAGNOSIS: (D50.0) Iron deficiency anemia due to chronic blood loss (primary encounter diagnosis) Plan: CBC + DIFF (FOR REMOTE [facility] USE), COMP METABOLIC PANEL, IRON + TIBC, FERRITIN BLD, RETIC COUNT, VITAMIN B12 BLOOD, FOLATE SERUM CC: SELF Steffany Rodriguez MD [address] [facility] [id number] Doug Olvera MD Referring Provider: SELF [200] Allergies As of Date: 05/24/2019 (No Known Allergies) Date Reviewed: 05/24/2019 Reviewed by: Tawny Westbrook - Fully Assessed Reason for Visit: Anemia [6] Cmt: new patient consult Primary Visit Diagnosis:Iron deficiency anemia due to chronic blood loss [D50.0] Order(s):CBC + DIFF (FOR REMOTE [facility] USE) [SQRCBCDF] Order #: [id number] FUTURE COMP METABOLIC PANEL [SQCMP] Order #: [id number] FUTURE IRON + TIBC [SQIRON] Order #: [id number] FUTURE FERRITIN BLD [SQFERR] Order #: [id number] FUTURE RETIC COUNT [SQRETIC] Order #: [id number] FUTURE VITAMIN B12 BLOOD [SQB12] Order #: [id number] FUTURE FOLATE SERUM [SQSERFOL] Order #: [id number] FUTURE Disposition: Return in about 4 weeks (around 06/21/2019). Follow-up and Disposition History Recorded Prescriptions as of 05/24/2019 Sig: FERROUS SULFATE 325 MG (65 MG* Take 1 tablet by mouth twice * PANTOPRAZOLE 40 MG TABLET,DEL* DOXYCYCLINE HYCLATE 100 MG CA* Take 100 mg by mouth twice da* LEVONORGESTREL 0.15 MG-ETHINY* Take 1 tablet by mouth once d* Problem List As Of Date: 05/24/2019 (None) Encounter Status:Closed by DOUG OLVERA MD on 05/25/19 [facility] PROGRESSon 05-24-2019 PROGRESS HNO ID: [id number] Author: Doug Olvera Service: ? Author Type: Physician Type: Progress Notes Filed: 05/25/2019 12:15 PM Note Text: Consultation requested by Dr. Rodriguez for an opinion regarding Ms. Darien Jimenez, and my final recommendations will be communicated back to the requesting physician by way of shared medical record or letter via US mail. ASSESSMENT AND PLAN: ASSESSMENT: 19 yo woman with symptomatic iron deficiency anemia due to menstrual blood loss and possible poor absorption of iron. Work up for celiac disease is pending and biopsies from EGD and Colonoscopy are pending from 05/23/2019. PLAN: 1. Continue oral iron 2. F/U in 4 weeks with labs. Preceding. 3. Obtain results of GI workup and biopsies from [place]. Doug Olvera MD CC: severe Iron deficiency anemia HPI: Darien Jimenez presents today at the request of Dr. Rodriguez for oncology evaluation. She is a 19 year old female who presents accompanied by her mother Arnav and father Cody. She is a history of heavy menstrual periods and therefore was placed on control pills in July 2018 and is on doxycycline for acne vulgaris. She is a history of mononucleosis and 2017. She was seen in the emergency room on May 01, 2019 for several month history of progressive dyspnea with light exertion and a one-month history of chest tightness and pain with dyspnea. During her ER visit she was noted to have a hemoglobin of 7.2 MCV 64 platelets 389 white blood cell count 6.0 and required 2 units packed red blood cells for an abnormal EKG consistent with sinus tachycardia. Ferritin was 2.0 iron 9.0 TIBC 490 iron saturation 1.8% she'll elevated d-dimer and had a CT angiogram that demonstrated 2 small 4 mm nodules in the right lung most likely postinflammatory or infectious but otherwise no evidence of pulmonary emboli. Additionally she was found to have a Hemoccult that was positive for occult blood. She presents today approximate 3 weeks following her ER visit it is still having some mild dyspnea as well as tachycardia. She had an endoscopy with colonoscopy yesterday there were some concerns for possible celiac disease. Biopsies results are pending. I reviewed the possible risks for her significant anemia and primarily focused on heavy menses which she is currently being treated for. There is a question of whether or not the doxycycline could've cause some of this but there is a very very low incidence of doxycycline-induced hemolysis is highly unlikely. More likely is her inability to absorb enough iron to keep up with her lifetime blood loss. She'll likely take some time to equilibrate and have recommended that she continue her oral iron at this time making sure that she's not interfering with Prilosec and keeping an acid environment in order to optimize her iron absorption. ECOG PERFORMANCE STATUS: 1 REVIEW OF SYSTEMS Per HPI and otherwise as noted below. CONSTITUTIONAL: No fevers, chills, nightsweats, unintended weight loss HEENT: Denies frequent or severe heaches, nasal congestion/sinus symptoms, problematic allergy problems. EYES: No diplopia or blurry vision. CARDIOVASCULAR: No chest pain, PND, ankle edema. PULM: No unexplained cough. GI: No dysphagia/odynophagia, problematic reflux, constipation, diarrhea, changes in stool habits, hematochezia, melena. : No new urinary complaints, including dysuria, gross hematuria or pyuria. NEURO: No new balance problems, peripheral weakness/paresthesias or numbness of concern. MUSC-SKEL: No new joint pain, swelling, or erythema. PSY: No concerns regarding depression, anxiety or panic. INTEGUMENTARY: No new skin changes (rash, new or changing mole, new growth) HEMATOLOGIC/LYMPHATIC/ IMMUNOLOGIC:Negative for prolonged bleeding, bruising easily or swollen nodes MEDICATIONS: levonorgestrel-ethinyl estradiol (LEVORA 0.15/30, 28,) 0.15-0.03 mg per tab Take 1 tablet by mouth once daily. ALLERGIES: ALLERGIES Allergies not on file PHYSICAL EXAMINATION: Vitals: There were no vitals taken for this visit. There is no height or weight on file to calculate BSA. General Appearance: Well appearing, alert, in no acute distress, well-hydrated, well nourished.. Skin: Skin color, texture, turgor normal, no suspicious rashes or lesions. Eyes: Anicteric sclera. Pupils are equally round and reactive to light. Extraocular movements are intact. . Ears: External ears normal, canals clear. Neck: Supple, no adenopathy; thyroid symmetric, normal size, no bruits. Lungs: lungs clear to auscultation. No wheezing, rhonchi, rales. Heart: RRR without murmur, gallop, or rubs. No ectopy. Abdomen: Normal abdominal exam, Abdomen soft, non-tender. Bowel sounds normal. No masses, organomegaly. Extremities: No deformities, edema, skin discoloration, clubbing or cyanosis. Good capillary refill. . Musculoskeletal: No joint swelling, deformity, or tenderness. Peripheral Pulses: Normal. Neurologic: Gait normal. Reflexes normal and symmetric. Sensation grossly intact.. Lymph Nodes: No cervical lymphadenopathy, No supraclavicular lymphadenopathy and No axillary lymphadenopathy.. LABORATORY VALUES: Reviewed in HPI RADIOLOGY REVIEW: Images reviewed by me in the presence of patient. DIAGNOSIS: (D50.0) Iron deficiency anemia due to chronic blood loss (primary encounter diagnosis) Plan: CBC + DIFF (FOR REMOTE [facility] USE), COMP METABOLIC PANEL, IRON + TIBC, FERRITIN BLD, RETIC COUNT, VITAMIN B12 BLOOD, FOLATE SERUM CC: SELF Steffany Rodriguez MD [address] [facility] [phone] Doug Olvera MD Normal [facility] Vital Signs Date Time Vital Sign Value Performing Clinician Faci lity 10-13-2024 09:26-0400 Body mass index (BMI) [Ratio] 27.64 kg/m2 Tari Ob [facility] 10-13-2024 09:26-0400 Body weight 73.03 kg Tari Ob [facility] 10-13-2024 09:26-0400 Diastolic blood pressure 72 mm[Hg] Tari Ob [facility] 10-13-2024 09:26-0400 Systolic blood pressure 118 mm[Hg] Tari Ob [facility] 08-18-2024 10:59-0400 Body height 162.6 cm Luis Fernando Tari DO Work Phone: [facility] 08-18-2024 10:59-0400 Body mass index (BMI) [Ratio] 27.12 kg/m2 Luis Fernando Tari DO Work Phone: [facility] 08-18-2024 10:59-0400 Body weight 71.67 kg Luis Fernando Tari DO Work Phone: [facility] 08-18-2024 10:59-0400 Diastolic blood pressure 70 mm[Hg] Luis Fernando Tari DO Work Phone: [facility] 08-18-2024 10:59-0400 Systolic blood pressure 118 mm[Hg] Luis Fernando Tari DO Work Phone: [facility] Encounters Encounter Date Encounter Type Care Provider Facility Start: 10-13-2024 End: 10-13-2024 Office outpatient visit 5 minutes Tari Nurse [facility] Comment on above: GA: 8w6d Start: 09-12-2024 End: 09-12-2024 Clinisync Result Encounter Luis Fernando Tari DO Work Phone: [facility] External Department Unsolicited Start: 09-12-2024 End: 09-12-2024 Clinisync Result Encounter Luis Fernando Tari DO Work Phone: [facility] Unsolicited Start: 08-18-2024 End: 08-18-2024 Bamboo flowsheet Luis Fernando Tari DO Work Phone: [facility] Start: 08-18-2024 End: 08-22-2024 Bamboo flowsheet Luis Fernando Tari DO Work Phone: [facility] Start: 08-18-2024 End: 08-22-2024 Clinisync Result Encounter Luis Fernando Tari DO Work Phone: [facility] Department Unsolicited Start: 08-18-2024 End: 08-18-2024 Patient encounter procedure Luis Fernando Tari DO Work Phone: [facility] Start: 08-18-2024 End: 08-18-2024 Periodic preventive med est patient 18-39 yrs Luis Fernando Tari DO Work Phone: [facility] Comment on above: Well woman exam with routine gynecological exam; Irregular menstrual cycle; Allegra Start: 08-18-2024 End: 08-18-2024 ambulatory LUIS FERNANDO TARI Not Available Start: 04-21-2021 End: 04-21-[address] URBAN DONG Facility:[facility] Start: 04-08-2021 End: 04-09-2021 ambulatory GLEN MARROQUIN Facility:[facility] Start: 08-15-2020 End: 08-16-2020 ambulatory NONE LISTED REQUEST Facility:[facility] Start: 07-26-2020 End: 07-27-2020 ambulatory NONE LISTED REQUEST Facility: Procedures Date Procedure Procedure Detail Performing Clinician Start: 10-13-2024 Urnls dip stick/tabl et rgnt non-auto w/o micrscp Luis Fernando Tari DO Work Phone: Start: 09-12-2024 [facility] PREG QUANT HCG Core y Tari DO Work Phone: Start: 08-18-2024 IGP,APTIMA HPV,AGE GDLN Luis Fernando Tari DO Work Phone: Plan of Treatment Date Care Activity Detail Author Start: 11-09-2024 End: 11-09-2024 Patient encounter procedure 11/09/2024 9:10 AM EDT Routine [facility] [address] [id number] Luis Fernando Marc DO [address] [place] [address] [facility] Start: 10-13-2024 End: 10-13-2025 ABO/Rh ABO/Rh Lab Routine Missed menses , unspecified gestational age ([facility]) Expected: 10/13/2024 (Approximate), Expires: 10/13/2025 [facility] Comment on above: Expected: 10/13/2024 (Approximate), Expires: 10/13/2025 Start: 10-13-2024 End: 10-13-2025 Blood type and Indirect antibody screen panel - Blood Type and screen Lab Routine Missed menses , unspecified gestational age ([facility]) Expected: 10/13/2024 (Approximate), Expires: 10/13/2025 [facility] Work Phone: Comment on above: Expected: 10/13/2024 (Approximate), Expires: 10/13/2025 Start: 10-13-2024 End: 10-13-2025 Drugs of abuse panel - Urine by Screen method Rapid drug screen, urine Lab Routine , unspecified gestational age ([facility]) Encounter for supervision of normal first in first trimester ([facility]) Expected: 10/13/2024 (Approximate), Expires: 10/13/2025 [facility] Comment on above: Expected: 10/13/2024 (Approximate), Expires: 10/13/2025 Start: 09-14-2024 End: 09-14-2024 Professional / ancillary services management 09/14/2024 11:00 AM EDT Ancillary Procedure [facility] [address] [place] [id number] [facility] Start: 08-18-2024 End: 08-18-2025 Antimullerian hormone (AMH) Antimullerian hormone (AMH) Lab Routine Irregular menstrual cycle Expected: 08/18/2024 (Approximate), Expires: 08/18/2025 [facility] Comment on above: Expected: 08/18/2024 (Approximate), Expires: 08/18/2025 Start: 08-18-2024 End: 08-18-2025 DHEA DHEA Lab Routine Irregular menstrual cycle Expected: 08/18/2024 (Approximate), Expires: 08/18/2025 [facility] Comment on above: Expected: 08/18/2024 (Approximate), Expires: 08/18/2025 Start: 08-18-2024 End: 08-18-2025 US Pelvis US Pelvis w/ TV Imaging Routine Irregular menstrual cycle Expected: 08/18/2024, Expires: 08/18/2025 [facility] Comment on above: Expected: 08/18/2024 , Expires: 08/18/2025 Start: 08-18-2024 End: 08-18-2024 Patient encounter procedure 08/18/2024 11:00 AM EDT Procedure Visit [facility] [address] [place] [id number] Luis Fernando Marc DO [address] [place] [address] Arrived [facility] Comment on above: Arrived Bacteria identified in Urine by Culture Urine culture Microbiology Routine Missed menses Ordered: 10/13/2024 [facility] Comment on above: Ordered: 10/13/2024 CBC W Auto Different ial panel - Blood CBC and differential Lab Routine Irregular menstrual cycle Ordered: 08/18/2024 [facility] Comment on above: Ordered: 08/18/2024 CBC W Auto Different ial panel - Blood CBC and differential Lab Routine Missed menses , unspecified gestational age ([facility]) Ordered: 10/13/2024 [facility] Comment on above: Ordered: 10/13/2024 Cytology Cervical or vaginal smear or scraping study Pap Smear Pathology and Cytology Routine Well woman exam with routine gynecological exam Ordered: 08/18/2024 [facility] Work Phone: Comment on above: Ordered: 08/18/2024 DHEA-sulfate DHEA-sulfate Lab Routine Irregular menstrual cycle Ordered: 08/18/2024 [facility] Comment on above: Ordered: 08/18/2024 Follicle stimulating hormone Follicle stimulating hormone Lab Routine Irregular menstrual cycle Ordered: 08/18/2024 [facility] Comment on above: Ordered: 08/18/2024 hCG, quantitative, hCG, quantitative, Lab Routine Irregular menstrual cycle Ordered: 08/18/2024 [facility] Comment on above: Ordered: 08/18/2024 Hemoglobin A1c/Hemoglobin.total in Blood Hemoglobin A1c Lab Routine Irregular menstrual cycle Ordered: 08/18/2024 [facility] Comment on above: Ordered: 08/18/2024 Hemoglobin A1c/Hemoglobin.total in Blood Hemoglobin A1c Lab Routine Missed menses , unspecified gestational age ([facility]) Ordered: 10/13/2024 [facility] Comment on above: Ordered: 10/13/2024 Hepatitis B virus surface Ag [Presence] in Serum or Plasma by Immunoassay Hepatitis B surface antigen Lab Routine Missed menses , unspecified gestational age ([facility]) Ordered: 10/13/2024 [facility] Comment on above: Ordered: 10/13/2024 Hepatitis C virus Ab [Presence] in Serum or Plasma by Immunoassay Hepatitis C antibody Lab Routine Missed menses , unspecified gestational age ([facility]) Ordered: 10/13/2024 [facility] Comment on above: Ordered: 10/13/2024 HIV-1/HIV-2 antigen/antibody combination immunoassay HIV-1 and HIV-2 antibodies Lab Routine Missed menses , unspecified gestational age ([facility]) Ordered: 10/13/2024 [facility] Comment on above: Ordered: 10/13/2024 Luteinizing hormone Luteinizing hormone Lab Routine Irregular menstrual cycle Ordered: 08/18/2024 [facility] Comment on above: Ordered: 08/18/2024 Progesterone Progesterone Lab Routine Irregular menstrual cycle Ordered: 08/18/2024 [facility] Comment on above: Ordered: 08/18/2024 Reagin Ab [Presence] in Serum by RPR RPR Lab Routine Missed menses , unspecified gestational age ([facility]) Ordered: 10/13/2024 [facility] Comment on above: Ordered: 10/13/2024 Rubella antibody, IgG Rubella an tibody, IgG Lab Routine Missed menses , unspecified gestational age ([facility]) Ordered: 10/13/2024 [facility] Comment on above: Ordered: 10/13/2024 Thyrotropin [Units/volume] in Serum or Plasma TSH Lab Routine Irregular menstrual cycle Ordered: 08/18/2024 [facility] Comment on above: Ordered: 08/18/2024 Thyroxine (T4) free [Mass/volume] in Serum or Plasma T4, free Lab Routine Irregular menstrual cycle Ordered: 08/18/2024 [facility] Comment on above: Ordered: 08/18/2024 Payers Date Payer Category Payer Private Health Insurance [employer] [id number] 2019 Unknown [id number] 2000 Unknown [id number] 2000 Unknown [id number] 1959 Self-pay Unknown [id number] Unknown [id number] Unknown [id number] Social History Date Type Detail Facility Tobacco smoking stat [facility] Tobacco smoking consumption unknown [facility] Start: 2000 Sex assigned at Not on file [facility] Gender identity Not on file [facility] Start: 08-26-2024 [facility] History of Present illness Narrative 10-13-2024 Sherrell Youngblood MA - 10/13/2024 9:00 AM EDT Note Date & Type Note Facility 10-13-2024 History of Presen t illness Narrative Reason for Appointment: Patient ID: Darien Jimenez is a 24 y.o. female who presents for Amenorrhea Patient presents today for a Nurse OB Intake appointment. Patient is 8w6d with a Estimated Date of Delivery: 05/19/25 OB History Para Term AB Living 1 0 0 0 0 0 SAB IAB Ectopic Multiple Live Births 0 0 0 0 0 # Outcome Date GA Lbr Benjamin/2nd Weight Sex Type Anes PTL Lv 1 Current Current Medications: has a current medication list which includes the following prescription(s): docusate sodium and vitamins. Medical History: Active Ambulatory Problems Diagnosis Date Noted Mjtigist 08/18/2024 Irregular menstrual cycle 08/18/2024 Well woman exam with routine gynecological exam 08/18/2024 Resolved Ambulatory Problems Diagnosis Date Noted No Resolved Ambulatory Problems No Additional Past Medical History No family history on file. Social History Tobacco Use Smoking status: Not on file Smokeless tobacco: Not on file Substance Use Topics Alcohol use: Not on file Drug use: Not on file History reviewed. No pertinent surgical history. No Known Allergies Vitals: Estimated body mass index is 27.64 kg/m as calculated from the following: Height as of 08/18/24: 5' 4 . Weight as of this encounter: 161 lb. BP: 118/72 Patient's last menstrual period was 08/04/2024. Assessment/Plan Diagnoses and all orders for this visit: Amenorrhea Missed menses - Type and screen; Future - ABO/Rh; Future - CBC and differential - Hemoglobin A1c - RPR - Rubella antibody, IgG - Hepatitis B surface antigen - Hepatitis C antibody - HIV-1 and HIV-2 antibodies - Urine culture - POCT , urine manually resulted - POCT urinalysis dipstick manually resulted , unspecified gestational age ([facility]) - Type and screen; Future - ABO/Rh; Future - CBC and differential - Hemoglobin A1c - RPR - Rubella antibody, IgG - Hepatitis B surface antigen - Hepatitis C antibody - HIV-1 and HIV-2 antibodies - Rapid drug screen, urine; Future Encounter for supervision of normal first in first trimester ([facility]) - Rapid drug screen, urine; Future Nurse Note: Patient desires to have [place] billion to one. Pt was advised to make sure to have both [place] and labs done together at 9 weeks. Pt is currently 8 weeks 6 days today. Pt desires NOT to know the Gender and the box was checked on the [facility] order. OB Intake: Patient presents today for first OB visit. Patients history has been reviewed in great detail including any potential risks. Patient signed consent forms and patient desires testing in both trimesters. Patient currently has no complaints and has been advised to drink 6-8 glasses of water a day, eat no raw or undercooked meat, and stay away from [facility]. Patient has also been advised to not change litter boxes and eat 6 small meals a day. Patient has been consulted regarding the do's and don'ts of . Patient was given labs and all questions and concerns were answered. Follow Up: Patient is to return in 4 weeks for routine OB appointment. Follow Up: Patient is to have labs drawn at directed and return to office for initial OB appointment with provider. Patient may call office as needed with any concerns or questions. Nurse Visit Completed by: Sherrell Youngblood MA documented in this encounter [facility] History of Present illness Narrative 08-18-2024 Sherrell Youngblood MA - 08/18/2024 11:00 AM EDT Note Date & Type Note Facility 08-18-2024 History of Presen t illness Narrative Reason for Appointment: Patient ID: Darien Jimenez is a 24 y.o. female who presents for Gynecologic Exam Patient presents today for Annual Exam. MEDICATIONS Current Outpatient Medications Medication Instructions minocycline 50 mg, Oral, 2 times daily ALLERGIES No Known Allergies PROBLEMS Active Ambulatory Problems Diagnosis Date Noted Allegra 08/18/2024 Irregular menstrual cycle 08/18/2024 Well woman exam with routine gynecological exam 08/18/2024 Resolved Ambulatory Problems Diagnosis Date Noted No Resolved Ambulatory Problems No Additional Past Medical History HISTORY PAST MEDICAL HISTORY SOCIAL HISTORY No past medical history on file. Social History Tobacco Use Smoking status: Not on file Smokeless tobacco: Not on file Substance Use Topics Alcohol use: Not on file Drug use: Not on file FAMILY HISTORY No family history on file. SURGICAL HISTORY History reviewed. No pertinent surgical history. REVIEW OF SYSTEMS Review of Systems: Review of Systems Constitutional: Negative. HENT: Negative. Eyes: Negative. Respiratory: Negative. Cardiovascular: Negative. Gastrointestinal: Negative. Genitourinary: Positive for menstrual problem. Musculoskeletal: Negative. Skin: Negative. Neurological: Negative. All other systems reviewed and are negative. Hematological: Negative. Endocrine: Negative. Allergic/Immunologic: Negative. OBJECTIVE Objective: Physical Exam Constitutional: Appearance: Normal appearance. She is well-developed. Genitourinary: Vulva normal. Right Adnexa: not tender and no mass present. Left Adnexa: not tender and no mass present. No cervical discharge. Breasts: Breasts are soft. Right: Normal. Left: Normal. HENT: Head: Normocephalic. Nose: Nose normal. Mouth/Throat: Mouth: Mucous membranes are moist. Cardiovascular: Rate and Rhythm: Normal rate and regular rhythm. Pulmonary: Effort: Pulmonary effort is normal. Breath sounds: Normal breath sounds. Abdominal: General: Bowel sounds are normal. There is no distension. Palpations: Abdomen is soft. Tenderness: There is no abdominal tenderness. There is no guarding or rebound. Musculoskeletal: General: No swelling. Normal range of motion. Cervical back: Normal range of motion. Right lower leg: No edema. Left lower leg: No edema. Neurological: General: No focal deficit present. Mental Status: She is alert and oriented to person, place, and time. Skin: General: Skin is warm and dry. Psychiatric: Mood and Affect: Mood normal. Behavior: Behavior normal. Vitals and nursing note reviewed. Exam conducted with a reactor fueling supervisor present. Vitals: Estimated body mass index is 27.12 kg/m as calculated from the following: Height as of this encounter: 5' 4 . Weight as of this encounter: 158 lb. BP: 118/70 Patient's last menstrual period was 08/11/2024 (exact date). ASSESSMENT & PLAN ICD-10-CM 1. Well woman exam with routine gynecological exam Z01.419 Pap Smear 2. Irregular menstrual cycle N92.6 hCG, quantitative, TSH T4, free CBC and differential Follicle stimulating hormone Luteinizing hormone Hemoglobin A1c DHEA-sulfate DHEA US Pelvis w/ TV Antimullerian hormone (AMH) Progesterone DHEA Antimullerian hormone (AMH) 3. Mittelschmerz N94.0 Annual Exam: Patient presents today for an annual exam. Patient states she is doing well and has complaints of spotting about 4-5 days prior to having her period. Pt is not on b/c and has stopped taking the oral b/c for over a year now. Pt states she has no need to take it anymore. Pap was obtained without difficulty. Labs and Ultrasound ordered for patient to have obtained. Patient also has complaints of abdominal cramps as well during possible ovulation times. Orders Placed This Encounter Procedures US Pelvis w/ TV hCG, quantitative, TSH T4, free CBC and differential Follicle stimulating hormone Luteinizing hormone Hemoglobin A1c DHEA-sulfate DHEA Antimullerian hormone (AMH) Progesterone Follow Up: Patient is to return in one year for annual unless needed otherwise. Documented by Sherrell Youngblood MA & Elissa Olvera LPN on behalf of: Luis Fernando Marc DO documented in this encounter [facility] Evaluation note Note Date & Type Note Facility Evaluation note Diagnosis Well woman exam with routine gynecological exam Routine gynecological examination Irregular menstrual cycle [place] documented in this encounter [facility] Evaluation note Note Date & Type Note Facility Evaluation note Diagnosis Amenorrhea Absence of menstruation Missed menses , unspecified gestational age ([facility]) Encounter for supervision of normal first in first trimester ([facility]) documented in this encounter [facility] Summary Purpose Family History No Family History Records FoundNo Family History Records FoundNo Family History Records Found Advance Directives No Advanced Directives Records FoundNo Advanced Directives Records FoundNo Advanced Directives Records Found Additional Source Comments INFORMATION SOURCE (unrecogn ized section and content) DATE CREATED AUTHOR 09/13/2019 [facility] DATE CREATED AUTHOR AUTHOR'S ORGANIZ ATION 05/09/2021 [facility] DATE CREATED AUTHOR AUTHOR'S ORGANIZ ATION 08/19/2024 [facility] EPIC Reason for Visit (unrecogniz ed section and content) Reason Comments Gynecologic Exam Reason Comments Amenorrhea FOR RECORDS PERTAINING TO PATIENTS WHO ARE OR HAVE BEEN ENROLLED IN A CHEMICAL DEPENDENCY/SUBSTANCEABUSE PROGRAM, SOME INFORMATION MAY BE OMITTED. This clinical summary was aggregated from multiple sources. Caution should be exercised in using it in the provision of clinical care. This summary normalizes information from multiple sources, and as a consequence, information in this document may materially change the coding, format and clinical context of patient data. In addition, data may be omitted in some cases. CLINICAL DECISIONS SHOULD BE BASED ON THE PRIMARY CLINICAL RECORDS. [facility]. provides no warranty or guarantee of the accuracy or completeness of information in this document.
[2024-10-14 09:43] LABS: BOX Test Reference Lab UNITY; BOX Test Sent Out UNITY
[2024-10-14 09:44] LABS: Basophils Percent Auto 0.3 % (0.2-2.0); Eosinophils Absolute Auto 0.1 10^3/uL (0.0-0.7); Hematocrit 38.9 % (36.0-48.0); Hemoglobin 13.9 g/dL (12.0-16.0); Immature Granulocytes Abs Auto 0.02 10^3/uL (0.00-0.03); Immature Granulocytes Pct Auto 0.3 % (0.0-0.5); Lymphocytes Absolute Auto 1.9 10^3/uL (1.2-3.8); Lymphocytes Percent Auto 27.8 % (20.5-60.0); Mean Corpuscular HGB Conc 35.7 g/dL (29.9-35.2); Mean Corpuscular Hemoglobin 30.7 pg (26.7-34.0); Mean Corpuscular Volume 85.9 fL (81.0-99.0); Monocytes Absolute Auto 0.4 10^3/uL (0.3-0.8); Monocytes Percent Auto 5.4 % (1.7-12.0); Neutrophils Absolute Auto 4.3 10^3/uL (1.4-6.5); Neutrophils Percent Auto 64.2 % (43.0-75.0); Platelet Count 226 10^3/uL (150-450); Red Blood Count 4.53 10^6/uL (4.20-5.40); Red Cell Distribution Width 12.4 % (11.0-15.0); White Blood Count 6.7 10^3/uL (4.0-11.0)
[2024-10-14 10:04] LABS: Estimated Average Glucose 94 mg/dL; Glycohemoglobin A1C 4.9 % (4.5-6.2)
[2024-10-14 10:19] LABS: Amphetamine Screen Urine NEGATIVE (NEGATIVE); Barbiturates Screen Urine NEGATIVE (NEGATIVE); Benzodiazepines Screen Urine NEGATIVE (NEGATIVE); Buprenorphine Screen Urine NEGATIVE (NEGATIVE); Cannabinoid Screen Urine NEGATIVE (NEGATIVE); Cocaine Screen Urine NEGATIVE (NEGATIVE); Methadone Screen Urine NEGATIVE (NEGATIVE); Methamphetamines Screen Urine NEGATIVE (NEGATIVE); Opiate Screen Urine NEGATIVE (NEGATIVE); Oxycodone Screen Urine NEGATIVE (NEGATIVE); Phencyclidine Screen Urine NEGATIVE (NEGATIVE); Tricyclic Antidepressant Urine NEGATIVE (NEGATIVE)
[2024-10-15 08:10] LABS: HBsAg Screen Negative (Negative); HCV Ab Non Reactive (Non Reactive); HIV Ab/p24 Ag Screen Non Reactive (Non Reactive)
[2024-10-15 10:11] LABS: Rubella Antibodies, IgG <0.90 index (Immune >0.99)
[2024-10-15 12:10] LABS: Rapid Plasma Reagin, Quant Non Reactive titer (NonRea<1:1)
== END 2024-10-14 09:23 | disposition home or self-care (01) ==
LOC: LAB 09:22
PROVIDERS: PCP Family Medicine; Visit Provider Obstetrics & Gynecology
DX: Z34.01 Encounter for supervision of normal first pregnancy, first trimester (principal); Z36.0 Encounter for antenatal screening for chromosomal anomalies
CPT/HCPCS: 36415; 80307; 83036; 85025; 86592; 86762; 86803; 86850; 86900; 86901; 87086; 87340; 87389

== ENCOUNTER 2024-12-12 10:15 | Outpatient (OUT) | payer OTHER, SELFPAY ==
--- OUTSIDE RECORDS SUMMARY | 2024-12-12 09:20 | XMS_ITS | Encounter Summary ---
Author Organization [facility] Address [address] [place] [address] Care Team Providers Care Auto Painter Helper Name Role Phone Unavailable Primary Care Provider Unavailabl e Reason for Visit * Reason Comments Routine Visit STI Screening Encounter Details Date Type Department Care Team (Late st Contact Info) Description 12/12/2024 9:20 AM EDT Routine [facility] [address] [place] [address] Eric Marc DO [address] [place] [address] 17 weeks gestation of ([facility]); Second trimester ([facility]); Screening, , for anatomic survey ([facility]); Exposure to STD; Vaginal discharge; Heartburn during in second trimester ([facility]) Social History Tobacco Use Types Packs/Day Years Used Date Smoking Tobacco: Never Assessed Estimated Date of Delivery Comme nts Yes 05/19/2025 Based on Ultraso und Sex and Gender Information Value Date Recorded Sex Assigned at Not on file Legal Sex Female 7:21 PM EDT Gender Identity Not on file Sexual Orientation Not on file Travel History Travel Start Travel End [place] 12/05/2024 12/11/2024 documented as of this encounter Last Filed Vital Signs Vital Sign Reading Time Taken Comments Blood Pressure 112/72 12/12/2024 9:31 AM EDT Pulse - - Temperature - - Respiratory Rate - - Oxygen Saturation - - Inhaled Oxygen Concentration - - Weight 75.2 kg (165 lb 12.8 oz) 12/12/2024 9:31 AM EDT Height - - Body Mass Index 28.46 08/18/2024 10:59 AM EDT documented in this encounter Progress Notes * Rahel Davalos, HEENA - 12/12/2024 9:20 AM EDT Reason for Appointment: Patient ID: Darien Yi is a 24 y.o. female who presents for Routine Visit and STI Screening Patient presents today for STD Check. and Return OB appointment. MEDICATIONS Current Outpatient Medications Medication Instructions docusate sodium (COLACE) 100 mg, Oral, 2 times daily PRN Famotidine (PEPCID PO) 1 tablet, Daily in the morning Vit-Fe Fumarate-FA ( Vitamins) 28-0.8 MG tablet 1 tablet, Oral, Daily ALLERGIES No Known Allergies PROBLEMS Active Ambulatory Problems Diagnosis [facility] Irregular menstrual cycle 08/18/2024 Well woman [...] No family history on file. SURGICAL HISTORY No past surgical history on file. REVIEW OF SYSTEMS Review of Systems: Review of Systems Constitutional: Negative. HENT: Negative. Eyes: Negative. Respiratory: Negative. Cardiovascular: Negative. Gastrointestinal: Negative. Genitourinary: Negative. Musculoskeletal: Negative. Skin: Negative. Neurological: Negative. All other systems reviewed and are negative. Hematological: Negative. Endocrine: Negative. Allergic/Immunologic: Negative. OBJECTIVE Objective: Physical Exam Constitutional: Appearance: Normal appearance. She is well-developed. Genitourinary: Vulva normal. Cardiovascular: Rate and Rhythm: Normal rate and regular rhythm. Pulmonary: Effort: Pulmonary effort is normal. Breath sounds: Normal breath sounds. Abdominal: General: Bowel sounds are normal. There is no distension. Palpations: Abdomen is soft. Tenderness: There is no abdominal tenderness. There is no guarding or rebound. Musculoskeletal: General: No swelling. Normal range of motion. Right lower leg: No edema. Left lower leg: No edema. Neurological: Mental Status: She is alert and oriented to person, place, and time. Skin: General: Skin is warm and dry. Psychiatric: Mood and Affect: Mood normal. Behavior: Behavior normal. Vitals and nursing note reviewed. Exam conducted with a skin piler present. Vitals: Estimated body mass index is 28.46 kg/m?? as calculated from the following: Height as of 08/18/24: 5' 4 . Weight as of this encounter: 165 lb 12.8 oz. BP: 112/72 Patient's last menstrual period was 08/04/2024. ASSESSMENT & PLAN ICD-10-CM 1. 17 weeks gestation of ([facility]) Z3A.17 POCT urinalysis dipstick manually resulted Alpha fetoprotein, maternal Alpha fetoprotein, maternal 2. Second trimester ([facility]) Z34.92 POCT urinalysis dipstick manually resulted Alpha fetoprotein, maternal Alpha fetoprotein, maternal 3. Screening, , for anatomic survey ([facility]) Z36.89 US OB 14+ weeks anatomy scan US OB 14+ weeks anatomy scan 4. Exposure to STD Z20.2 SURESWAB(R) ADVANCED VAGINITIS PLUS, TMA CHLAMYDIA TRACHOMATIS (GENITO/STI) Neisseria gonorrhea DNA probe, direct 5. Vaginal discharge N89.8 SURESWAB(R) ADVANCED VAGINITIS PLUS, TMA Return OB/Annual Exam: Patient presents today for a cultures exam/routine obstetrics appointment. Patient is currently 17w3d . Patient states she is doing well but has complaints of nausea in the morning. cultures was obtained without difficulty and patient was given orders for anatomy scan and msAFP to be obtained. Orders Placed This Encounter Procedures US OB 14+ weeks anatomy scan CHLAMYDIA TRACHOMATIS (GENITO/STI) Neisseria gonorrhea DNA probe, direct Alpha fetoprotein, maternal POCT urinalysis dipstick manually resulted Follow Up: Patient is to schedule annual exam for next year and return to office in 4 weeks for OB appointment. Documented by Rahel Davalos LPN on behalf of: Eric Marc DO documented in this encounter Plan of Treatment Upcoming Encounters Date Type Department Care Team (Late st Contact Info) Description 01/10/2025 10:00 AM EDT Ancillary Procedure [facility] [address] [place] [address] 01/10/2025 11:00 AM EDT Routine [facility] [address] [place] [place] [id number] Judith Toure PA [address] [place], [place] [id number] Scheduled Orders Name Type Priority Associated Diagnoses Order Schedule SURESWAB(R) ADVANCED VAGINITIS PLUS, TMA Pathology and Cytology Routine Exposure to STD Vaginal discharge Ordered: 12/12/2024 CHLAMYDIA TRACHOMATIS (GENITO/STI) Lab Routine Exposure to STD Ordered: 12/12/2024 Neisseria gonorrhea DNA probe, direct Lab Routine Exposure to STD Ordered: 12/12/2024 OB 14+ weeks anatomy scan Imaging Routine Screening, , for anatomic survey ([facility]) Expected: 12/12/2024, Expires: 03/14/2025 Alpha fetoprotein, maternal Lab Routine 17 weeks gestation of ([facility]) Second trimester ([facility]) Expected: 12/12/2024 (Approximate), Expires: 02/11/2025 documented as of this encounter Goals Goal Patient Goal Type Associated Problems Recent Progress Patient-Stated? Author Reminders Care Plan OB Reminders Elissa Daniels LPN documented as of this encounter Procedures Procedure Name Priority Date/Time Associated Diagnosis Comments POCT URINALYSIS DIPSTICK Routine 12/12/2024 9:36 AM EDT 17 weeks gestation of ([facility]) Second trimester ([facility]) documented in this encounter Results * (ABNORMAL) POCT urinalysis dipstick manually resulted (12/12/2024 9:36 AM EDT) Color, UA Yellow Clarity, UA Clear Glucose, UA Negative Negative - 2000(110) ++++ mg/dL Bilirubin, UA Negative Negative - 4(70) +++ mg/dL Ketones, UA Negative Negative - 160(16) ++++ mg/dL Spec Grav, UA 1.020 1 - 1.03 Blood, UA Negative Negative - 50 Iam/mcL pH, UA 6.0 5 - 9 Protein, UA Few Negative - 2000(20) ++++ mg/dL Urobilinogen, UA 0.2 0.2 - 12 mg/dL Leukocytes, UA 3+ Negative - 500+++ Zakia/mcL Nitrite, UA Negative Negative - Positive Urine 12/12/2024 9:36 AM EDT Eric Marc DO POINT OF CARE TEST ENTER/EDIT OR DERABLES Final Result documented in this encounter Visit Diagnoses Diagnosis 17 weeks gestation of ([facility]) Second trimester ([facility]) state, incidental Screening, , for anatomic survey ([facility]) Encounter for anatomic survey Exposure to STD Vaginal discharge Leukorrhea, not specified as infective Heartburn during in second trimester ([facility]) documented in this encounter Additional Health Concerns Active Problems Noted Date Diagnosed Date OB Reminders 12/12/2024 documented as of this encounter
--- OUTSIDE RECORDS SUMMARY | 2024-12-12 10:17 | XMS_ITS | Encounter Summary ---
Author Organization [facility] Address [address] [place] [address] Care Team Providers Care Fiber Glass Worker Name Role Phone Unavailable Primary Care Provider Unavailabl e Encounter Details Date Type Department Care Team (Late st Contact Info) Description 12/12/2024 Bamboo flowsheet [facility] [address] [place] [address] Eric Marc DO [address] [place] [address] Janette Vasquez, [place] [address] Social History Tobacco Use Types Packs/Day Years Used Date Smoking Tobacco: Never Assessed Estimated Date of Delivery Comme nts Yes 05/19/2025 Based on Ultraso und Sex and Gender Information Value Date Recorded Sex Assigned at Not on file Legal Sex Female 7:21 PM EDT Gender Identity Not on file Sexual Orientation Not on file Travel History Travel Start Travel End [place] 12/05/2024 12/11/2024 documented as of this encounter Plan of Treatment Upcoming Encounters Date Type Department Care Team (Late st Contact Info) Description 01/10/2025 10:00 AM EDT Ancillary Procedure [facility] [place] [address] 01/10/2025 11:00 AM EDT Routine [facility] [address] [facility] [place] [address] Judith Toure PA [address] [place] [address] documented as of this encounter Goals Goal Patient Goal Type Associated Problems Recent Progress Patient-Stated? Author Reminders Care Plan OB Reminders No Elissa Olvera LPN documented as of this encounter Visit Diagnoses Not on filedocumented in this encounter Additional Health Concerns Active Problems Noted Date Diagnosed Date OB Reminders 12/12/2024 documented as of this encounter
--- OUTSIDE RECORDS SUMMARY | 2024-12-12 10:17 | XMS_ITS | Encounter Summary ---
Author Organization [facility] Address [address] [place] [address] Care Team Providers Care Weatherization Administrator Name Role Phone Unavailable Primary Care Provider Unavailabl e Encounter Details Date Type Department Care Team (Late st Contact Info) Description 11/01/2024 Abstract [facility] [address] [place] [address] Yeimi Montoya MA Social History Tobacco Use Types Packs/Day Years Used Date Smoking Tobacco: Never Assessed Estimated Date of Delivery Comme nts Yes 05/19/2025 Based on Ultraso und Sex and Gender Information Value Date Recorded Sex Assigned at Not on file Legal Sex Female 7:21 PM EDT Gender Identity Not on file Sexual Orientation Not on file Travel History Travel Start Travel End [place] 12/05/2024 12/11/2024 documented as of this encounter Plan of Treatment Upcoming Encounters Date Type Department Care Team (Late st Contact Info) Description 01/10/2025 10:00 AM EDT Ancillary Procedure [facility] [address] [place] [address] 01/10/2025 11:00 AM EDT Routine [facility] [address] [place] [address] Judith Toure PA [address] [place], [place] [address] documented as of this encounter Visit Diagnoses Not on filedocumented in this encounter
--- OUTSIDE RECORDS SUMMARY | 2024-12-12 10:17 | XMS_ITS | Encounter Summary ---
Author Organization [facility] Address [address] [place] [address] Care Team Providers Care Barrel Centerer Name Role Phone Unavailable Primary Care Provider Unavailabl e Encounter Details Date Type Department Care Team (Late st Contact Info) Description 10/24/2024 Abstract [facility] [address] [place] [address] Eric Marc DO [address] [place] Vas[place], [facility] Social History Tobacco Use Types Packs/Day Years Used Date Smoking Tobacco: Never Assessed Estimated Date of Delivery Comme nts Yes 05/19/2025 Based on Ultraso und Sex and Gender Information Value Date Recorded Sex Assigned at Not on file Legal Sex Female 7:21 PM EDT Gender Identity Not on file Sexual Orientation Not on file Travel History Travel Start Travel End [place] 12/05/2024 12/11/2024 documented as of this encounter Plan of Treatment Upcoming Encounters Date Type Department Care Team (Late st Contact Info) Description 01/10/2025 10:00 AM EDT Ancillary Procedure [facility] [address] [facility] [place] [place] [address] 01/10/2025 11:00 AM EDT Routine [facility] [address] [place] [address] Judith Toure PA [address] [place] [address] documented as of this encounter Visit Diagnoses Not on filedocumented in this encounter
--- OUTSIDE RECORDS SUMMARY | 2024-12-12 10:17 | XMS_ITS | Encounter Summary ---
Author Organization [facility] Address [address] [place] [address] Care Team Providers Care Engine Installer Name Role Phone Unavailable Primary Care Provider Unavailabl e Encounter Details Date Type Department Care Team (Late st Contact Info) Description 08/30/2024 Orders Only [facility] [address] [place] [address] Meli Crisostomo LPN [address] [place] [address] Social History Tobacco Use Types Packs/Day Years Used Date Smoking Tobacco: Never Assessed Comments No Sex and Gender Information Value Date Recorded [...] 10:00 AM EDT Ancillary Procedure [facility] [address] [place] [address] [place] [address] 01/10/2025 11:00 AM EDT Routine [facility] [address] [place] [address] Judith Toure PA [address] [place] [address] documented as of this encounter Procedures Procedure Name Priority Date/Time Associated Diagnosis Comments PAP SMEAR Routine 08/18/2024 12:00 AM EDT documented in this encounter Results * Pap Smear (08/18/2024 12:00 AM EDT) Swab Cervical swab / Unknown us [facility] LAB CYTOLOGY ORDERABLES Final Result EXTERNAL LAB documented in this encounter Visit Diagnoses Not on filedocumented in this encounter
--- OUTSIDE RECORDS SUMMARY | 2024-12-12 10:17 | XMS_ITS | Clinical Summary ---
Author Organization [facility] Address [address] [place] [address] Care Team Providers Care Curb Setter Helper Name Role Phone Unavailable Primary Care Provider Unavailabl e Allergies No known active allergies Medications Vit-Fe Fumarate-FA ( Vitamins) 28-0.8 MG tabletIndications :Missed menses Take 1 tablet by mouth Daily 30 tablet 09/13/19 25 026 Active docusate sodium (Colace) 100 MG capsuleIndication s:Constipation, unspecified constipation type Take 1 capsule (100 mg) by mouth 2 (two) times a day as needed for constipation 30 capsule 12/05/19 25 026 Active Famotidine (PEPCID PO) Take 1 tablet by mouth Daily in the Morning Active pantoprazole (Protonix) 40 MG EC tabletIndications :Heartburn during in second trimester ([facility]) Take 1 tablet (40 mg) by mouth in the morning. Take before meals. Do not crush, chew, or split. 30 tablet 11 12/13/19 25 026 Active docusate sodium (Colace) 100 MG capsuleIndication s:Constipation, unspecified constipation type Take 1 capsule (100 mg) by mouth 2 (two) times a day as needed for constipation 30 capsule 2 10/12/19 25 025 Discontinu ed(Reorder ) ondansetron ODT (Zofran-ODT) 4 MG disintegrating tabletIndications :Nausea and vomiting in ([facility]) Take 1 tablet (4 mg) by mouth every 6 (six) hours if needed for nausea or vomiting 30 tablet 2 10/20/19 25 025 Active Problems Problem Noted Date Diagnosed Date Mjtigist 08/18/2024 Irregular menstrual cycle 08/18/2024 Well woman exam with routine gynecological exam 08/18/2024 Estimated Date of Delivery Comme nts Yes 05/19/2025 Based on Ultraso und Encounters Date Type Department Care Team Description 12/12/2024 9:20 AM EDT Routine [facility] [address] [place] [address] Eric Marc, 17 weeks gestation of ([facility]); Second trimester ([facility]); Screening, , for anatomic survey ([facility]); Exposure to STD; Vaginal discharge; Heartburn during in second trimester ([facility]) 12/12/2024 Bamboo flowsheet [facility] [address] [place] [address] Eric Marc, 12/05/2024 Travel 12/04/2024 Telephone [facility] [address] [place] [address] Aretha Phelan LPN 11/09/2024 9:10 AM EDT [facility] [address] [facility] [place] [place] [address] Eric Marc, 12 weeks gestation of ([facility]); First trimester ([facility]) 11/09/2024 Bamboo flowsheet [facility] [address] [place] [address] Eric Marc, 11/06/2024 Travel 11/01/2024 Abstract [facility] [address] [place] [address] Yeimi Montoya MA 10/24/2024 Abstract [facility] [address] [place] [address] Eric Marc, DO 10/19/2024 Telephone [facility] [address] [facility] [place] [address] Sherrell Youngblood, CHANTE 10/14/2024 Clinisync Result Encounter [facility] External Department Unsolicited Eric Marc, DO 10/13/2024 9:00 AM EDT Initial [facility] [address] [place] [address] GA: 8w6d 10/13/2024 8:30 AM EDT Ancillary Procedure [facility] [address] [place] [address] Missed menses 10/12/2024 Travel 10/11/2024 Telephone [facility] [address] [facility] [place] [address] Aretha Phelan LPN 10/10/2024 Travel 09/26/2024 Telephone [facility] [address] [facility] [place] [address] Rahel Davalos LPN Error (VOID this visit) 09/15/2024 Clinisync Result Encounter [facility] External Department Unsolicited Eric Marc, DO 09/12/2024 Clinisync Result Encounter [facility] External Department Unsolicited Eric Marc, DO 09/12/2024 Telephone [facility] [address] [facility] [place] [address] Rahel Davalos LPN from Last 3 Months Social History Tobacco Use Types Packs/Day Years Used Date Smoking Tobacco: Never Assessed Estimated Date of Delivery Comme nts Yes 05/19/2025 Based on Ultraso und Sex and Gender Information Value Date Recorded Sex Assigned at Not on file Legal Sex Female 7:21 PM EDT Gender Identity Not on file Sexual Orientation Not on file Travel History Travel Start Travel End [place] 12/05/2024 12/11/2024 Last Filed Vital Signs Vital Sign Reading Time Taken Comments Blood Pressure 112/72 12/12/2024 9:31 AM EDT Pulse - - Temperature - - Respiratory Rate - - Oxygen Saturation - - Inhaled Oxygen Concentration - - Weight 75.2 kg (165 lb 12.8 oz) 12/12/2024 9:31 AM EDT Height 162.6 cm (5' 4 ) 08/18/2024 10:5 9 AM EDT Body Mass Index 28.46 08/18/2024 10:59 AM EDT Plan of Treatment Upcoming Encounters Date Type Department Care Team (Late st Contact Info) Description 01/10/2025 10:00 AM EDT Ancillary Procedure [facility] [address] [place] [address] [place] [address] 01/10/2025 11:00 AM EDT Routine [facility] [address] [facility] [place] [address] Judith Toure PA [address] [facility] [place] [address] Goals Goal Patient Goal Type Associated Problems Recent Progress Patient-Stated? Author Reminders Care Plan OB Reminders No Elissa Olvera LPN Procedures Procedure Name Priority Date/Time Associated Diagnosis Comments POCT URINALYSIS DIPSTICK Routine 12/12/2024 9:36 AM EDT 17 weeks gestation of ([facility]) Second trimester ([facility]) POCT URINALYSIS DIPSTICK Routine 11/09/2024 9:12 AM EDT 12 weeks gestation of ([facility]) First trimester ([facility]) HBSAG SCREEN Routine 10/14/2024 9:31 AM EDT RAPID PLASMA REAGIN, QUANT Routine 10/14/2024 9:31 AM EDT HCV ANTIBODY RFX TO QUANT PCR Routine 10/14/2024 9:31 AM EDT ALL RUBELLA IGG AB Routine 10/14/2024 9: 31 AM EDT HIV AB/P24 AG WITH REFLEX Routine 10/14/2024 9:31 AM EDT ALL TYPE AND SCREEN Routine 10/14/2024 9 :31 AM EDT MLR HEMOGLOBIN A1C Routine 10/14/2024 9: 31 AM EDT ALL CBC WITH AUTO DIFF Routine 10/14/2024 9:31 AM EDT BOX TEST Routine 10/14/2024 9:31 AM EDT TB[facility] DRUG SCREEN RAPID (URINE) Routine 10/14/2024 9:16 AM EDT POCT URINALYSIS DIPSTICK Routine 10/13/2024 8:59 AM EDT Missed menses POCT , URINE Routine 10/13/2024 8:59 AM EDT Missed menses US OB TRANSVAGINAL Routine 10/13/2024 8: 52 AM EDT Missed menses [facility] PREG QUANT HCG Routine 09/15/2024 8: 25 AM EDT [facility] PREG QUANT HCG Routine 09/12/2024 12 :49 PM EDT from Last 3 Months Results * (ABNORMAL) POCT urinalysis dipstick manually resulted (12/12/2024 9:36 AM EDT) Only the most recent of3 resultswithin the time period is included. Color, UA Yellow Clarity, UA Clear Glucose, [...] Positive Urine 12/12/2024 9:36 AM EDT Eric Tari DO POINT OF CARE TEST ENTER/EDIT OR DERABLES Final Result * BOX TEST (10/14/2024 9:31 AM EDT) [facility] BOX TEST SENT OUT [facility] 10/14/24 [facility] 10/14/2024 9:31 AM EDT 10/14/2024 9:35 AM EDT Narrative [facility] - 10/14/2024 9:43 AM EDT UNITY Eric Tari DO LAB BLOOD ORDERABLES Final Resul t Performing Organization Address City/[facility]/ZIP Co de Phone Number [facility] * HBSAG SCREEN (10/14/2024 9:31 AM EDT) [facility] HBSAG SCREEN Negative Negative [facility] Comment: Performed at: - [address] [id number] Pelt Inspector: Kam Harris PhD, Phone: [phone] 10/14/2024 9:31 AM EDT 10/14/2024 9:35 AM EDT Narrative [facility] - 10/15/2024 12:10 PM EDT Eric Tari DO LAB BLOOD ORDERABLES Final Resul t [facility] * RAPID PLASMA REAGIN, QUANT (10/14/2024 9:31 AM EDT) [facility] RAPID PLASMA REAGIN, QUANT Non Reactive NonRea<1: 1 titer [facility] Comment: Please Note: This test does not meet current guidelines for screening and diagnosis of syphilis. This test is intended for following treatment response in patients being treated for syphilis infection. To screen for syphilis infection, a reflex cascade that includes both RPR and a treponema-specific assay should be utilized, such as Treponema pallidum (Syphilis) Screening [place] (837762) or Rapid Plasma Reagin (RPR) Test With Reflex to Quantitative RPR and Confirmatory Treponema pallidum Antibodies ([id number]). Performed at: [address] [id number] Pelt Inspector: Kam Harris PhD, Phone: [phone] 10/14/2024 9:31 AM EDT 10/14/2024 9:35 AM EDT Narrative [facility] - 10/15/2024 12:10 PM EDT [facility] BLOOD ORDERABLES Final Resul t Performing Organization Address [facility] Co de Phone Number [facility] * HIV AB/P24 AG WITH REFLEX (10/14/2024 9:31 AM EDT) Pathologist [facility] HIV AB/P24 AG SCREEN Non Reactive Non Reactive [facility] Comment: HIV-1/HIV-2 antibodies and HIV-1 p24 antigen were NOT detected. There is no laboratory evidence of HIV infection. HIV Negative Performed at: [address] [id number] Pelt Inspector: Kam Harris PhD, Phone: [phone] 10/14/2024 9:31 AM EDT 10/14/2024 9:35 AM EDT [facility]ative [facility] - 10/15/2024 8:10 AM EDT [facility] LAB BLOOD ORDERABLES Final Resul t Performing Organization Address [facility] Co de Phone Number [facility] * HCV ANTIBODY RFX TO QUANT PCR (10/14/2024 9:31 AM EDT) Pathologist [facility] HCV AB Non Reactive Non Reactive TB INTERPRETATION: Comment . TB Comment: Not infected with HCV unless early or acute infection is suspected (which may be delayed in an immunocompromised individual), or other evidence exists to indicate HCV infection. Performed at: [address] [id number] Pelt Inspector: Kam Harris PhD, Phone: [phone] 10/14/2024 9:31 AM EDT 10/14/2024 9:35 AM EDT Narrative [facility] - 10/15/2024 10:11 AM EDT us Eric Tari DO LAB BLOOD ORDERABLES Final Resul t Performing Organization Address City/[facility] Co de Phone Number [facility] * MLR HEMOGLOBIN A1C (10/14/2024 9:31 AM EDT) Pathologist [facility] GLYCOHEMOGLOBIN A1C 4.9 4.5 - 6.2 % [facility] Comment: ADA RECOMMENDED LIMIT 4.0 - 6.0 ADA THERAPEUTIC TARGET < 7.0 ACTION SUGGESTED > 7.0 ESTIMATED AVERAGE GLUCOSE 94 mg/dL TB 10/14/2024 9:31 AM EDT 10/14/2024 9:35 AM EDT Narrative [facility] - 10/14/2024 10:05 AM EDT us Eric Tari DO [facility] Final Result Performing Organization Address City/[facility]/ZIP Co de Phone Number [facility] * ALL TYPE AND SCREEN (10/14/2024 9:31 AM EDT) Pathologist [facility] BLOOD TYPE A Positive [facility] ANTIBODY SCREEN NEGATIVE TB 10/14/2024 9:31 AM EDT 10/14/2024 9:35 AM EDT Narrative [facility] - 10/14/2024 10:53 AM EDT [facility] , us Eric Tari DO [facility] Final Result Performing Organization Address City/[facility] Co de Phone Number [facility] * (ABNORMAL) ALL RUBELLA IGG AB (10/14/2024 9:31 AM EDT) Pathologist [facility] RUBELLA ANTIBODIES, IGG <0.90(A) Immune >0.99 index [facility] Comment: Non-immune <0.90 Equivocal 0.90 - 0.99 Immune >0.99 Performed at: - [address] [id number] Pelt Inspector: Kam Harris PhD, Phone: [phone] 10/14/2024 9:31 AM EDT 10/14/2024 9:35 AM EDT Narrative [facility] - 10/15/2024 10:11 AM EDT Eric Marc DO [facility] Final [facility] * (ABNORMAL) ALL CBC WITH AUTO DIFF (10/14/2024 9:31 AM EDT) [facility] TB WBC 6.7 4.0 - 11.0 10 3/uL TBH TBH RBC 4.53 4.20 - 5.40 10 6/uL TBH TBH HGB 13.9 12.0 - 16.0 g/dL TBH TB HCT 38.9 36.0 - 48.0 % TBH TB MCV 85.9 81.0 - 99.0 fL TB TB MCH 30.7 26.7 - 34.0 pg TBH TB MCHC 35.7(H) 29.9 - 35.2 g/dL TB TB RDW 12.4 11.0 - 15.0 % TBH TBH PLT 226 150 - 450 10 3/uL TBH TBH MPV 9.0(L) 9.5 - 13.5 fL TBH NEUTROPHILS PERCENT AUTO 64.2 43.0 - 75.0 % TBH LYMPHOCYTES PERCENT AUTO 27.8 20.5 - 60.0 % TBH MONOCYTES PERCENT AUTO 5.4 1.7 - 12.0 % TBH TBH EO % 2.0 0.9 - 7.0 % TBH BASOPHILS PERCENT AUTO 0.3 0.2 - 2.0 % TBH IMMATURE GRANULOCYTES PCT AUTO 0.3 0.0 - 0.5 % TBH NEUTROPHILS ABSOLUTE AUTO 4.3 1.4 - 6.5 10 3/uL TBH LYMPHOCYTES ABSOLUTE AUTO 1.9 1.2 - 3.8 10 3/uL TBH MONOCYTES ABSOLUTE AUTO 0.4 0.3 - 0.8 10 3/uL TBH TBH EO # 0.1 0.0 - 0.7 10 3/uL TBH BASOPHILS ABSOLUTE AUTO 0.0 0.0 - 0.1 10 3/uL TBH IMMATURE GRANULOCYTES ABS AUTO 0.02 0.00 - 0.03 10 3/uL [facility] 10/14/2024 9:31 AM EDT 10/14/2024 9:35 AM EDT Narrative [facility] - 10/14/2024 9:48 AM EDT us Eric Tari DO [facility] Final Result [facility] * TB DRUG SCREEN RAPID (URINE) (10/14/2024 9:16 AM EDT) CANNABINOID SCREEN URINE NEGATIVE NEGATIVE TBH PHENCYCLIDINE SCREEN URINE NEGATIVE NEGATIVE TBH COCAINE SCREEN URINE NEGATIVE NEGATIVE TBH METHAMPHETAMINES SCREEN URINE NEGATIVE NEGATIVE TBH OPIATE SCREEN URINE NEGATIVE NEGATIVE TBH AMPHETAMINE SCREEN URINE NEGATIVE NEGATIVE TBH BENZODIAZEPINES SCREEN URINE NEGATIVE NEGATIVE TBH TRICYCLIC ANTIDEPRESSANT URINE NEGATIVE NEGATIVE TBH METHADONE SCREEN URINE NEGATIVE NEGATIVE TBH BARBITURATES SCREEN URINE NEGATIVE NEGATIVE TBH OXYCODONE SCREEN URINE NEGATIVE NEGATIVE TBH BUPRENORPHINE SCREEN URINE NEGATIVE NEGATIVE TBH Comment: DRUG CLASS TEST SYSTEM CUT-OFF CONCENTRATIONS ARE FOLLOWS: AMP (Amphetamine): 500 ng/mL BAR (Barbiturates): 200 ng/mL BZO (Benzodiazepines): 150 ng/mL BUP (Buprenorphine): 10 ng/mL KINZA (Cocaine): 150 ng/mL mAMP (Methamphetamine): 500 ng/mL MTD (Methadone): 200 ng/mL OPI (Opiates): 100 ng/mL OXY (Oxycodone): 100 ng/mL PCP (Phencyclidine): 25 ng/mL THC (Cannabinoids): 50 ng/mL TCA (Trycyclic Antidepressants): 300 ng/mL 10/14/2024 9:16 AM EDT 10/14/2024 9:36 AM EDT [address]ative [facility] - 10/14/2024 10:19 AM EDT us Eric Tari DO [facility] Final Result [facility] * (ABNORMAL) POCT , urine manually resulted (10/13/2024 8:59 AM EDT) Preg Test, Ur Positive Negative Urine 10/13/2024 8:59 AM EDT us Eric Tari DO POINT OF CARE TEST ENTER/EDIT OR DERABLES Final Result * US OB transvaginal (10/13/2024 8:52 AM EDT) Anatomical Region Laterality Modality Body Ultrasound 10/16/2024 8:57 AM EDT Narrative 10/16/2024 8:57 AM EDT EXAM: US OB TRANSVAGINAL HISTORY: Dating. Unknown LMP. Beta HCG on 09/15/2024 was 705. G1. COMPARISON: None available. TECHNIQUE: Two-dimensional transvaginal grayscale, color and spectral Doppler ultrasound imaging of the pelvis was performed. FINDINGS: The uterus demonstrates a normal homogeneous echotexture. The cervical os is closed and measures 4.2 cm in length. The right ovary measures 3.6 x 1.3 x 1.4 cm and demonstrates a normal echotexture. There is normal color Doppler flow. The left ovary measures 3.2 x 1.9 x 2.1 cm and demonstrates a normal echotexture. There is normal color Doppler flow. No fluid is present within the cul-de-sac. There is a single, live intrauterine gestation identified with a heart rate of 178 beats per minute and a crown-rump length measurement of 2.2 cm, correlating to a gestational age of 8 weeks 6 days (+/- 6 days). There is a 2.4 x 1.0 x 1.6 cm subchorionic hemorrhage visualized within the lower uterine segment. A yolk sac is visualized. IMPRESSION: 1. Single, live intrauterine gestation. Today's ultrasound measurements correlate with a gestational age of 8 weeks 6 days (+/- 6 days). WENDY by today's ultrasound is 05/19/2025. 2. Lower uterine segment subchorionic hemorrhage. 3. Normal color Doppler evaluation of the bilateral ovaries. Interpreted by: Electronically signed by SOLITARIO CONTRERAS II, MD, PHD at 16-Oct-2024 08:55:44 AM [facility] Procedure Note Solitario Contreras MD - 10/16/2024 EXAM: US OB TRANSVAGINAL HISTORY: Dating. Unknown LMP. Beta HCG on 09/15/2024 was 705. G1. COMPARISON: None available. TECHNIQUE: Two-dimensional transvaginal grayscale, color and spectralDoppler ultrasound imaging of the pelvis was performed. FINDINGS: The uterus demonstrates a normal homogeneous echotexture. The cervical osis closed and measures 4.2 cm in length. The right ovary measures 3.6 x 1.3 x 1.4 cm and demonstrates a normalechotexture. There is normal color Doppler flow. The left ovary measures 3.2 x 1.9 x 2.1 cm and demonstrates a normalechotexture. There is normal color Doppler flow. No fluid is present within the cul-de-sac. There is a single, live intrauterine gestation identified with a fetalheart rate of 178 beats per minute and a crown-rump length measurement of2.2 cm, correlating to a gestational age of 8 weeks 6 days (+/- 6 days).There is a 2.4 x 1.0 x 1.6 cm subchorionic hemorrhage visualized withinthe lower uterine segment. A yolk sac is visualized. IMPRESSION: 1. Single, live intrauterine gestation. Today's ultrasound measurementscorrelate with a gestational age of 8 weeks 6 days (+/- 6 days). WENDY bytoday's ultrasound is 05/19/2025. 2. Lower uterine segment subchorionic hemorrhage. 3. Normal color Doppler evaluation of the bilateral ovaries. Interpreted by: Electronically signed by SOLITARIO CONTRERAS II, MD, PHD 08:55:44 AM [facility] us Eric Tari DO IMG OB US PROCEDURES Final Resul t * TBH PREG QUANT HCG (09/15/2024 8:25 AM EDT) Only the most recent of2 resultswithin the time period is included. HCG QUANTITATIVE 705 mIU/mL TBH Comment: 5-50 0.2-1 WEEK 50-500 1-2 WEEKS 100-5,000 2-3 WEEKS 500-10,000 3-4 WEEKS 1,000-50,000 4-5 WEEKS 10,000-100,000 5-6 WEEKS 15,000-200,000 6-8 WEEKS 10,000-100,000 2-3 MONTHS 09/15/2024 8:25 AM EDT 09/15/2024 8:26 AM EDT Narrative [facility] - 09/15/2024 9:04 AM EDT us Eric Tari DO [facility] Final Result Performing Organization Address City/State/[facility] Co de Phone Number [facility] TB from Last 3 Months Additional Health Concerns Active Problems Noted Date Diagnosed Date OB Reminders 12/12/2024 Insurance [employer]
--- OUTSIDE RECORDS SUMMARY | 2024-12-12 10:17 | XMS_ITS ---
Author Organization [facility] Source Produ ction (ClinicalSummary Clone) Address Unknown Care Team Providers Care Call Center Recruiter Name Role Phone Unavailable Primary Care Physician Unavailab le Results * [UNITY] ANEUPLOIDY NIPT Performed by: [employer] Component Value Range Date Fraction 9.0% 10/23/2024 03 :14 am UT Rh(D) NIPT RhD DETECTED 10/23/2024 03:1 4 am UT Sex Chromosome Aneuploidy NOT DETECTED 03:14 am UTC Monosomy X LOW RISK <1 in 10,000 2024 03:14 am UTC Trisomy 13 LOW RISK <1 in 10,000 2024 03:14 am UTC Trisomy 18 LOW RISK <1 in 10,000 2024 03:14 am UTC Trisomy 21 LOW RISK <1 in 10,000 2024 03:14 am UTC Sex NOT ORDERED 10/23/2024 03:1 4 am UTC Gestation CARTER 10/24/19 03:14 am UT For detailed report, see PDF See PDF 10/23/2024 03:14 am UTC 10/23/2024 03:1 4 am [facility] Social History Observation Value Start Date End Date
--- OUTSIDE RECORDS SUMMARY | 2024-12-12 10:17 | XMS_ITS | Clinical Summary ---
Author Organization [facility] Address [address] [place], [place] [id number] Care Team Providers Care Portrait Artist Name Role Phone Steffany Metcalf MD Primary Care Provider [phone] Allergies No known active allergies Medications levonorgestrel -ethinyl estradiol (LEVORA 0.15/30, 28,) 0.15-0.03 mg per tab Take 1 tablet by mouth once daily. Active ferrous sulfate 325 mg (65 mg iron) tablet Take 1 tablet by mouth twice daily. 05/02/[address] (PROTONIX) 40 mg tablet 05/02/19 Active doxycycline hyclate (VIBRAMYCIN) 100 mg capsule Take 100 mg by mouth twice daily. Active cyanocobalamin (VITAMIN B-12) 1,000 mcg/mL Inject 1 mL intramuscularly once every month for 3 doses. 3 mL 09/13/19 Active Active Problems Problem Noted Date Diagnosed Date Chest pain, unspecified 05/05/2019 Weakness 05/05/2019 Tachycardia 05/05/2019 Abnormal electrocardiogram (ECG) (EKG) 0 Dyspnea on exertion 05/05/2019 Other fecal abnormalities 05/05/2019 Iron deficiency anemia 05/01/2019 Immunizations Immunization Administration Dates Next Due Haemophilus influenzae b (Hi b) vaccine, unspecified formulation 10/26/2001,2000,2000 diphtheria tetanus pertussis (DTaP) vaccine, pediatric (INFANRIX) 09/30/2005 diphtheria tetanus pertussis (DTaP) vaccine, unspecified formulation 10/26/2001,2000,2000,07/22 hepatitis A (HepA) vaccine, 2-dose series, ped/adol (HAVRIX-PEDS, VAQTA-PEDS) 12/15/2012 hepatitis B (HepB) vaccine, 3-dose series, age 0 yr - 19 yr (ENGERIX B-PEDS, RECOMBIVAX HB-PEDS) 2000,2000,2000 human papillomavirus (HPV4) vaccine, quadrivalent (GARDASIL) 07/25/2013,03/14/2013,12/15/2012 influenza vaccine, whole virus 03/14/2013 measles mumps rubella (MMR) vaccine (M-M-R II, PRIORIX) 09/30/2005,10/26/2001 meningococcal (MenACWY-CRM) vaccine, quadrivalent (MENVEO) 11/12/2017,10/25/2012 pneumococcal (PCV7) vaccine, 7 valent (PREVNAR 7) 2000,2000,2000 poliovirus (IPV) vaccine, in activated (IPOL) 09/30/2005,2000,2000,07/22 tetanus diphtheria pertussis (Tdap) vaccine, age 7+ yr (ADACEL, BOOSTRIX) 10/25/2012 Social History Tobacco Use Types Packs/Day Years Used Date Smoking Tobacco: Never Smokeless Tobacco: Never Alcohol Use Standard Drinks/Week Comments Not Currently 0 (1 standard drink = 0.6 oz pur e alcohol) Area Deprivation Index Answer Date Fredrick rded National Score (1-100), lower number is lower ri sk Not on file 04/04/2020 State Score (1-10), lower number is lower risk N ot on file 04/04/2020 Data from: https://www.neighborhoodatlas.medicine.[facility].edu/. Last address used for calculation Not on file 04/04/2020 Comments No Sex and Gender Information Value Date Recorded Sex Assigned at Not on file Legal Sex Female 12:05 PM EST Gender Identity Not on file Sexual Orientation Not on file Last Filed Vital Signs Vital Sign Reading Time Taken Comments Blood Pressure 125/71 06/23/2019 3:52 PM EST Pulse 78 06/23/2019 3:52 PM EST Temperature 37 C (98.6 F) 06/23/2019 3:52 PM EST Respiratory Rate 18 06/23/2019 3:52 PM EST Oxygen Saturation 100% 06/23/2019 3:52 PM EST Inhaled Oxygen Concentration - - Weight 62.6 kg (138 lb) 06/23/2019 3:52 PM EST Height 161 cm (5' 3.39 ) 06/23/2019 3:52 PM EST Body Mass Index 24.15 06/23/2019 3:52 PM EST Plan of Treatment Health Maintenance Due Date Last Done Comments Peds To Adult Transition Ini tial Discussion 2012 Peds To Adult Transition Andria ual Assessment 2014 Anxiety Screening 2018 Depression Screening 2018 HIV Screening 2018 Hepatitis C Screening 2018 Cervical Cancer Screening 2021 DTaP,Tdap,Td Vaccine (7 - Td or Tdap) 10/25/2022 10/25/2012, 09/30/2005, 10/26/2001, Additional history exists Influenza Vaccine (#1) 2024 03/14/2013 Hepatitis B Vaccine Completed 2000, 2000, 2000 HPV Vaccine Completed 07/25/2013, 02/24, 12/15/2012 Insurance Care Teams Portrait Artist Relationship Specialty Start Date End Date Steffany Metcalf MD [address] [place] [id number] PCP - General Family Medicine 05/15/19
--- OUTSIDE RECORDS SUMMARY | 2024-12-12 10:17 | XMS_ITS ---
Author Organization [facility] Source Produ ction (ClinicalSummary Clone) Address Unknown Care Team Providers Care Ripening Room Attendant Name Role Phone Unavailable Primary Care Physician Unavailab le Results * [UNITY] CARRIER SCREEN Performed by: [employer] Component Value Range Date Sickle Cell Disease/Beta-Thalassemia/Hemo globinopathies carrier screen NEGATIVE 10/24/2024 05:44 am [place] Alpha-Thalassemia carrier screen NEGATIVE 10/24/2024 05:44 am [place] Cystic Fibrosis carrier screen NEGATIVE 10/24/2024 05:44 am [place] Spinal Muscular Atrophy carrier screen NEGATIVE 2 SMN1 copies, SNP not present 10/24/2024 05:44 am [place] For detailed report, see PDF See PDF 10/24/2024 05:44 am [place] 10/24/2024 05:4 4 am [facility] Social History Observation Value Start Date End Date
--- OUTSIDE RECORDS SUMMARY | 2024-12-12 10:17 | XMS_ITS | Encounter Summary ---
Author Organization [facility] Address [address] [place] [address] Care Team Providers Care Vice President Network Development Name Role Phone Unavailable Primary Care Provider Unavailabl e Encounter Details Date Type Department Care Team (Latest Contact Info) Description 12/05/2024 Travel Social History Tobacco Use Types Packs/Day Years Used Date Smoking Tobacco: Never Assessed Estimated Date of Delivery Comme nts Yes 05/19/2025 Based on Ultraso und Sex and Gender Information Value Date Recorded Sex Assigned at Not on file Legal Sex Female 7:21 PM EDT Gender Identity Not on file Sexual Orientation Not on file Travel History Travel Start Travel End [place] 12/05/2024 12/11/2024 documented as of this encounter Plan of Treatment Upcoming Encounters Date Type Department Care Team (Late st Contact Info) Description 01/10/2025 10:00 AM EDT Ancillary Procedure [facility] [address] [place] [id number] 01/10/2025 11:00 AM EDT Routine [facility] SETHIGYAlan [address] [place] [id number] Judith Toure PA [address] [place], [place] [id number] documented as of this encounter Visit Diagnoses Not on filedocumented in this encounter
--- OUTSIDE RECORDS SUMMARY | 2024-12-12 10:17 | XMS_ITS | Clinical Summary ---
Author Organization [facility] Address [address] [place] [address] Phone Care Team Providers Care Caddie Supervisor Name Role Phone Unavailable Primary Care Provider Unavailabl e Social History Tobacco Use Types Packs/Day Years Used Date Smoking Tobacco: Never Assessed Comments Unknown Sex and Gender Information Value Date Recorded Sex Assigned at Not on file Legal Sex Female 7:52 AM EST Gender Identity Not on file Sexual Orientation Not on file Plan of Treatment Not on file
--- OUTSIDE RECORDS SUMMARY | 2024-12-12 10:17 | XMS_ITS | Encounter Summary ---
Author Organization [facility] Address [address] [place] [address] Care Team Providers Care Blacksmith Assistant Name Role Phone Unavailable Primary Care Provider Unavailabl e Encounter Details Date Type Department Care Team (Late st Contact Info) Description 12/04/2024 Telephone [facility] [address] [place] [address] Aretha Phelan LPN [address] [place] [id number] Social History Tobacco Use Types Packs/Day Years Used Date Smoking Tobacco: Never Assessed Estimated Date of Delivery Comme nts Yes 05/19/2025 Based on Ultraso und Sex and Gender Information Value Date Recorded Sex Assigned at Not on file Legal Sex Female 7:21 PM EDT Gender Identity Not on file Sexual Orientation Not on file Travel History Travel Start Travel End [place] 12/05/2024 12/11/2024 documented as of this encounter Miscellaneous Notes * Telephone Encounter - Aretha Phelan LPN - 12/04/2024 10:38 AM EDT PerIsrael Toure PA-C, medication called in. documented in this encounter Plan of Treatment Upcoming Encounters Date Type Department Care Team (Late st Contact Info) Description 01/10/2025 10:00 AM EDT Ancillary Procedure [facility] [address] [place] [address] [place] [phone] 01/10/2025 11:00 AM EDT Routine [facility] [address] [place] [address] [place] [phone] Judith Toure PA [address] [place] [address] documented as of this encounter Visit Diagnoses Diagnosis Constipation, unspecified constipation type documented in this encounter
--- OUTSIDE RECORDS SUMMARY | 2024-12-12 10:17 | XMS_ITS ---
Author Organization [facility] Source Produ ction (ClinicalSummary Clone) Address Unknown Care Team Providers Care Armature Winder Repair Helper Name Role Phone Unavailable Primary Care Physician Unavailab le Results * [UNITY] ANEUPLOIDY NIPT Performed by: [employer] Component Value Range Date Fraction 9.0% 11/13/2024 02 :35 pm UTC Rh(D) NIPT RhD DETECTED 11/13/2024 02:3 5 pm UTC Sex Chromosome Aneuploidy NOT DETECTED 02:35 pm UTC Monosomy X LOW RISK <1 in 10,000 2024 02:35 pm UTC Trisomy 13 LOW RISK <1 in 10,000 2024 02:35 pm UTC Trisomy 18 LOW RISK <1 in 10,000 2024 02:35 pm UTC Trisomy 21 LOW RISK <1 in 10,000 2024 02:35 pm UTC Sex MALE 11/13/2024 02:3 5 pm UTC Gestation CARTER 11/14/19 02:35 pm UTC This result reflects an amended result REVISED REPORT to include sex. 11/13/2024 02:35 pm UTC For detailed report, see PDF See PDF 11/13/2024 02:35 pm UTC 11/13/2024 02:3 5 pm UTC Social History Observation Value Start Date End Date
--- OUTSIDE RECORDS SUMMARY | 2024-12-12 10:17 | XMS_ITS | Encounter Summary ---
Author Organization [facility] Address [address] [place], [place] [id number] Care Team Providers Care Bundle Tier Name Role Phone Steffany Metcalf MD Primary Care Provider [phone] Source Comments In the event this information is protected by the Federal Confidentiality of Alcohol and Drug AbusePatient Records regulations: The Federal rules restrict any use of the information to criminally investigate or prosecute any alcohol or drug abuse patient.[facility] Encounter Details Date Type Department Care Team (Latest Contact Info) Description 05/15/2019 H&P External-NonCCF Provider, External, PA-C Do not enter address information under generic External Provider. Social History Tobacco Use Types Packs/Day Years Used Date Smoking Tobacco: Never Assessed Comments Unknown Sex and Gender Information Value Date Recorded Sex Assigned at Not on file Legal Sex Female 12:05 PM EST Gender Identity Not on file Sexual Orientation Not on file documented as of this encounter Plan of Treatment Not on file documented as of this encounter Visit Diagnoses Not on filedocumented in this encounter Care Teams Bundle Tier Relationship Specialty Start Date End Date Steffany Metcalf MD [address] [place] [address] PCP - General Family Medicine 05/15/19 documented as of this encounter
--- OUTSIDE RECORDS SUMMARY | 2024-12-12 12:39 | XMS_ITS | CCD ---
Author Organization [facility] Care Team Providers Care Solar Sales Ambassador Name Role Phone REQUEST, DR PAGE LISTED [...] Care Provider LUIS FERNANDO Lee Attending Unavailable LUIS FERNANDO MARC Attending Unavailable Medications Current Medications Medication Drug Class(es) Dates Sig (Normalized) Sig (Original) docusate sodium 100 mg oral capsule (8 sources) Start: 10-11-2024 End: 12-04-2025 take 1 capsule by mouth twice daily as needed for constipation docusate sodium (Colace) 100 MG capsule Indications: Constipation, unspecified constipation type Take 1 capsule (100 mg) by mouth 2 (two) times a day as needed for constipation 30 capsule 11 12/04/2024 12/04/2025 Active Famotidine (2 sources) Histamine-2 Receptor Antagonist take 1 tablet by mouth once daily in the morning Famotidine (PEPCID PO) Take 1 tablet by mouth Daily in the Morning Active minocycline 50 mg oral capsule (5 sources) Tetracycline-cla ss Drug Start: 11-29-2023 End: 10-13-2024 take 1 capsule by mouth twice daily minocycline 50 MG capsule Indications: Acne, unspecified acne type TAKE 1 CAPSULE BY MOUTH TWICE A DAY 60 capsule 2 11/29/2023 10/13/2024 Discontinued (Therapy completed) ondansetron 4 mg disintegrating oral tablet (3 sources) Serotonin-3 Receptor Antagonist Start: 10-19-2024 End: 11-18-2024 take 1 tablet by mouth every six hours for nausea ondansetron ODT (Zofran-ODT) 4 MG disintegrating tablet Indications: Nausea and vomiting in ([facility]) Take 1 tablet (4 mg) by mouth every 6 (six) hours if needed for nausea or vomiting 30 tablet 2 10/19/2024 11/18/2024 Active pantoprazole 40 mg delayed release oral tablet (2 sources) Proton Pump Inhibitor Start: 12-12-2024 End: 12-12-2025 take 1 tablet by mouth once before mealtime pantoprazole (Protonix) 40 MG EC tablet Indications: Heartburn during in second trimester ([facility]) Take 1 tablet (40 mg) by mouth in the morning. Take before meals. Do not crush, chew, or split. 30 tablet 11 12/12/2024 12/12/2025 Active Vit-Fe Fumarate-FA ( Vitamins) 28-0.8 MG tablet (9 sources) Start: 09-12-2024 End: 09-12-2025 take 1 [...] Active Problems Problem Classification Problem Date Documented Date Episodic/Chronic Immunizations and screening for infectious disease (6 sources) Encounter for immunization; Translations: [Exposure to sexually transmissible disorder] Onset: 04-08-2021 Episodic Menstrual disorders (14 sources) Irregular periods; Translations: [Irregular menstruation, unspecified] Onset: 08-18-2024 08-18-2024 Chronic Other complications of (2 sources) Heartburn; Translations: [Other specified related conditions, second trimester] 12-12-2024 Episodic Other female genital disorders (12 sources) Mittelschmerz; Translations: [Mittelschmerz] Onset: 08-18-2024 08-18-2024 Chronic Other female genital disorders (2 sources) Vaginal discharge; Translations: [Other specified noninflammatory disorders of vagina] 12-12-2024 Episodic Other and delivery including normal (6 sources) ; Translations: [Encounter for supervision of normal , unspecified, unspecified trimester] 10-13-2024 Episodic Other screening for suspected conditions (not mental disorders or infectious disease) (2 sources) Patient encounter status; Translations: [Encounter for other specified screening] 12-12-2024 Episodic Residual codes; unclassified (2 sources) Gestation period, 12 weeks; Translations: [12 weeks gestation of ] 11-09-2024 Episodic Residual codes; unclassified (2 sources) Gestation period, 17 weeks; Translations: [17 weeks gestation of ] 12-12-2024 Episodic Unclassified (3 sources) CONTACT W/AND (SUSP) EXPOS COVID-19; Translations: [CONTACT W/AND (SUSP) EXPOS COVID-19] Onset: 04-27-2021 Unclassified (2 sources) OB Reminders Onset: 12-12-2024 12-12-2024 Past or Other Problems Problem Classification Problem Date Documented Da te Episodic/Chronic Unclassified (1 source) CONTACT W/AND (SUSP) EXPOS COVID-19; Translations: [CONTACT W/AND (SUSP) EXPOS COVID-19] Onset: 04-21-2021 Results Test Name Value Interpretation Reference Range Facility Urinalysis macro (dipstick) panel (U)on 12-12-2024 Bilirubin, UA Negative Negative - 4(70) +++ mg/dL [facility] Healthcare Blood, UA Negative Negative - 50 Iam/mcL [facility] Healthcare Clarity, UA Clear [facility] Color, UA Yellow [facility] Glucose, UA Negative Negative - 1999(110) ++++ mg/dL [facility] Interpretation and review of laboratory results Abnormal [facility] Ketones, UA Negative Negative - 160(16) ++++ mg/dL [facility] Healthcare Leukocytes, UA 3+ Negative - 500+++ Zakia/mcL [facility] Healthcare Nitrite, UA Negative Negative - Positive [facility] Healthcare pH, UA 6 5 - 9 [facility] Protein, UA Few Negative - 1999(20) ++++ mg/dL [facility] Healthcare Spec Grav, UA 1.02 1 - 1.03 [facility] care Urobilinogen, UA 0.2 0.2 - 12 mg/dL [facility] Urinalysis macro (dipstick) panel (U)on 11-09-2024 Bilirubin, UA Negative Negative - 4(70) +++ mg/dL [facility] Healthcare Blood, UA Negative Negative - 50 Iam/mcL [facility] Healthcare Clarity, UA Cloudy [facility] Color, UA Yellow [facility] Glucose, UA Negative Negative - 1999(110) ++++ mg/dL [facility] Interpretation and review of laboratory results Abnormal [facility] Ketones, UA Negative Negative - 160(16) ++++ mg/dL [facility] Leukocytes, UA Moderate Negative - 500+++ Zakia/mcL [facility] Nitrite, UA Negative Negative - Positive [facility] Healthcare pH, UA 7.5 5 - 9 [facility] Protein, UA Negative Negative - 1999(20) ++++ mg/dL [facility] Spec Grav, UA 1.02 1 - 1.03 [facility] Urobilinogen, UA 1.0 0.2 - 12 mg/dL [facility] Health[facility] e ALL CBC WITH AUTO DIFFon BASOPHILS ABSOLUTE AUTO 0 [facility] Basophils/100 WBC (Bld) 0.3 % 0.2 - 2.0 % [facility] Eosinophils/100 WBC (Bld) 2 % 0.9 - 7.0 % [facility] Erythrocyte distribution width (RBC) [Ratio] 12.4 % 11.0 - 15.0 % [facility] Hematocrit (Bld) [Volume fraction] 38.9 % 36.0 - 48.0 % [facility] Hem[facility] (Bld) [Mass/Vol] 13.9 g/dL 12.0 - 16.0 g/dL [facility] IMMATURE GRANULOCYTES ABS AUTO 0.02 [facility] Immature granulocytes/100 WBC (Bld) 0.3 % 0.0 - 0.5 % [facility] Interpretation and review of laboratory results Abnormal [facility] re LYMPHOCYTES ABSOLUTE AUTO 1.9 [facility] Lymphocytes/100 WBC (Bld) 27.8 % 20.5 - 60.0 % [facility] MCH (RBC) [Entitic mass] 30.7 pg 26.7 - 34.0 pg [facility] MCHC (RBC) [Mass/Vol] 35.7 g/dL High 29.9 - 35.2 g/dL [facility] MCV (RBC) [Entitic vol] 85.9 fL 81.0 - 99.0 fL [facility] MONOCYTES ABSOLUTE AUTO 0.4 [facility] Monocytes/100 WBC (Bld) 5.4 % 1.7 - 12.0 % [facility] NEUTROPHILS ABSOLUTE AUTO 4.3 [facility] Neutrophils/100 WBC (Bld) 64.2 % 43.0 - 75.0 % [facility] Platelet mean volume (Bld) [Entitic vol] 9 fL Low 9.5 - 13.5 fL [facility] TBH EO # 0.1 [facility] PLT 226 [facility] TB RBC 4.53 [facility] TBH WBC 6.7 [facility] e [facility] Healthcar e BOX TESTon 10-14-2024 BOX TEST SENT OUT [facility] BOX1 [facility] B[facility]2 10/14/24 [facility] e [facility] HCG ( test) Ql (U)o n 10-13-2024 Interpretation and review of laboratory results Abnormal [facility] Preg Test, Ur Positive Negative [facility] US OB TRANSVAGINALon 025 US OB TRANSVAGINAL EXAM: US OB TRANSVAGINAL HISTORY: Dating. Unknown [...] II, MD, PHD at 16-Oct-2024 08:55:44 AM [facility] Normal Not Available Comment on above: Order Comment: US OB TRANSVAGINAL No LMP recorded. Urinalysis macro (dipstick) panel (U)on 10-13-2024 Bilirubin, UA Negative Negative - 4(70) +++ mg/dL [facility] Blood, UA Positive Negative - 50 Iam/mcL [facility] Comment on above: trace Clarity, UA Clear [facility] re Color, UA Yellow [facility] e Glucose, UA Negative Negative - 1999(110) ++++ mg/dL [facility] Ketones, UA Negative Negative - 160(16) ++++ mg/dL [facility] Leukocytes, UA Positive Negative - 500+++ Zakia/mcL [facility] Comment on above: small Nitrite, UA Negative Negative - Positive [facility] pH, UA 6.5 5 - 9 [facility] Protein, UA Negative Negative - 1999(20) ++++ mg/dL [facility] Spec Grav, UA 1.02 1 - 1.03 [facility] Urobilinogen, UA 0.2 0.2 - 12 mg/dL [facility] TBH PREG QUANT HCGon 09-12- 025 HCG QUANTITATIVE 230 mIU/mL [facility] Comment on above: 5-50 0.2-1 WEEK 50-500 1-2 WEEKS 100-5,000 2-3 WEEKS 500-10,000 3-4 WEEKS 1,000-50,000 4-5 WEEKS 10,000-100,000 5-6 WEEKS 15,000-200,000 6-8 WEEKS 10,000-100,000 2-3 MONTHS [facility] IGP,APTIMA HPV,AGE GDLNon -2024 AGE GDLN ACOG TESTING Note . [facility] Comment on above: TESTS RESULT FLAG UN ITS REF RANGE LAB Clinician Provided Cytology Information Source.............Cervix;Endocervix No. of containers..01 ThinPrep Vial Age Algo ACOG Cheli... FLAG LEGEND: L-Low Normal,H-High Normal,LL-Alert Low,HH-Alert High <-Panic Low,>-Panic High,A-Abnormal,AA-Critical Abnormal Performed at: 01 =G [facility] [address] [facility] [address] Bebe Pleitez MD, IGP, RFX APTIMA HPV ASCU Note . [facility] Comment on above: TESTS RESULT FLAG UN ITS REF RANGE LAB DIAGNOSIS: 02 NEGATIVE FOR INTRAEPITHELIAL LESION OR MALIGNANCY. Specimen adequacy: 02 Satisfactory for evaluation. Endocervical and/or squamous metaplastic cells (endocervical component) are present. Performed by: Kevin Loya Digester Hand ([facility]) . 02 Note: Note 02 The Pap [...] <-Panic Low,>-Panic High,A-Abnormal,AA-Critical Abnormal Performed at: [address] [phone] Bebe Pleitez MD, Performed at: =G - [facility] [address] [id number] Gre Tutor: Bebe Pleitez MD, Phone: [phone] Performed at: - [facility] [id number] Gre Tutor: Bebe Pleitez MD, Phone: [phone] BRUSH-SPATULA CERVIX ENDOCERVIX [facility] Covid-19 PCR ([facility])on 03-27 SARS-CoV-2 (COVID-19) RNA SHANTHI+probe Ql (Unsp spec) Not detected Normal NOT DETECTED [facility] Comment on above: Result Comment: This test is not yet approved or cleared by the [place] FDA. When there are no FDA-approved or cleared tests available, and other criteria are met, FDA can make tests available under an emergency access mechanism called an Emergency Use Authorization (EUA). The EUA for this test is supported by the [employer] of Health and Human Service's (HHS's) declaration [...] consistent with SARS-CoV-2. Performed By: #### C VDTB #### [facility] [address] [place] [address] Dr. Chitra Fine 09-12-2019 OBSOLETE Refill ([place]) DAREIN JIMENEZ ([id number]) 1 F Date Time Provider Department 09/12/19 [...] Status:Closed by DOUG OLVERA MD on 09/13/19 Normal [facility] CNOVSPon 06-23-2019 CNOVSP Visit (SP) Office ([place]) DARIEN JIMENEZ ([id number]) 1 F Date Time Provider Department 06/23/19 4:00 PM DOUG OLVERA During your visit today, we recorded the following information about you: Temperature Pulse Respiration Blood pressure 98.6 degrees 78/minute 18/minute 125/71 Weight Height 62.6 kg 1.61 m Swathi Keyes 06/23/2019 4:00 PM Signed Patient states [...] by mouth twice daily. levonorgestrel-ethinyl estradiol (LEVORA 0.15/, 28,) 0.15-0.03 mg per tab Take 1 [...] Doug Olvera MD CC: Steffany Rodriguez MD [address] [place] [phone] Referring Provider: DOUG OLVERA [[id number]] Allergies As of Date: 06/23/2019 (No Known [...] fecal abnormalities [R19.5] 05/05/2019 Visit Notes: >> July Keyes Fri Jun 23, 2019 3:58 PM Status: Signed Patient states still having bouts of fatigue and SOB when exercising. Encounter Status:Closed by DOUG OLVERA MD on 06/23/19 Normal [facility] PROGRESSon 06-23-2019 PROGRESS HNO ID: [id number] Author: Doug Olvera Service: ? Author Type: [...] Doug Olvera MD CC: Steffany Rodriguez MD [address] [place] [phone] Normal [facility] CNOVSPon 05-24-2019 CNOVSP Visit (SP) Office ([place]) DARIEN JIMENEZ ([id number]) 1 F Date Time Provider Department 05/24/19 4:15 PM DOUG OLVERA During your visit today, [...] results of GI workup and biopsies from [place]. Doug Olvera MD CC: severe Iron deficiency [...] FOLATE SERUM CC: SELF Steffany Rodriguez MD [address] [place] [phone] Doug Olvera MD Referring Provider: SELF [[id number]] Allergies As of Date: 05/24/2019 (No Known Allergies) Date Reviewed: 05/24/2019 Reviewed by: Tawny Westbrook - Fully Assessed Reason for Visit: Anemia [6] Cmt: new patient consult Primary Visit Diagnosis:Iron deficiency anemia due to chronic blood loss [D50.0] Order(s):CBC + DIFF (FOR REMOTE [facility] USE) [SQRCBCDF] Order #: [id number] FUTURE COMP METABOLIC PANEL [SQCMP] Order #: [id number] FUTURE IRON + TIBC [SQIRON] Order #: [id number] FUTURE FERRITIN BLD [SQFERR] Order #: [id number] FUTURE RETIC COUNT [SQRETIC] Order #: [id number] FUTURE VITAMIN B12 BLOOD [SQB12] Order #: [id number] FUTURE FOLATE SERUM [SQSERFOL] Order #: [id number] FUTURE Disposition: Return in about 4 weeks [...] Status:Closed by DOUG OLVERA MD on 05/25/19 Normal [facility] PROGRESSon 05-24-2019 PROGRESS HNO ID: [id number] Author: Doug Olvera Service: ? Author Type: [...] results of GI workup and biopsies from [place]. Doug Olvera MD CC: severe Iron deficiency [...] diagnosis) Plan: CBC + DIFF (FOR REMOTE [facility] USE), COMP METABOLIC PANEL, IRON + TIBC, FERRITIN BLD, RETIC COUNT, VITAMIN B12 BLOOD, FOLATE SERUM CC: SELF Steffany Rodriguez MD [facility] [phone] Doug Olvera MD Normal [facility] Vital Signs Date Time Vital Sign Value Performing Clinician Margaritai prashant 12-12-2024 09:31-0400 Body mass index (BMI) [Ratio] 28.46 kg/m2 Superbac Work Phone: [facility] 12-12-2024 09:31-0400 Body weight 75.21 kg Superbac Work Phone: [facility] 12-12-2024 09:31-0400 Diastolic blood pressure 72 mm[Hg] Superbac Work Phone: [facility] 12-12-2024 09:31-0400 Systolic blood pressure 112 mm[Hg] Superbac Work Phone: [facility] 11-09-2024 09:08-0400 Body mass index (BMI) [Ratio] 27.31 kg/m2 Luis Fernando Tari DO Work Phone: [facility] 11-09-2024 09:08-0400 Body weight 72.18 kg Luis Fernando Tari DO Work Phone: [facility] 11-09-2024 09:08-0400 Diastolic blood pressure 70 mm[Hg] Luis Fernando Tari DO Work Phone: [facility] 11-09-2024 09:08-0400 Systolic blood pressure 110 mm[Hg] Luis Fernando Tari DO Work Phone: [facility] 10-13-2024 09:26-0400 Body mass index (BMI) [Ratio] 27.64 kg/m2 Tari Ob [facility] 10-13-2024 09:26-0400 Body weight 73.03 kg Tari Ob [facility] 10-13-2024 09:26-0400 Diastolic blood pressure 72 mm[Hg] Tari Ob [facility] 10-13-2024 09:26-0400 Systolic blood pressure 118 mm[Hg] Tari Ob [facility] 08-18-2024 10:59-0400 Body height 162.6 cm Luis Fernando Tari DO Work Phone: [facility] 08-18-2024 10:59-0400 Body mass index (BMI) [Ratio] 27.12 kg/m2 Luis Fernando Tari DO Work Phone: [facility] 08-18-2024 10:59-0400 Body weight 71.67 kg Luis Fernando Tari DO Work Phone: [facility] 08-18-2024 10:59-0400 Diastolic blood pressure 70 mm[Hg] Luis Fernando Tari DO Work Phone: [facility] 08-18-2024 10:59-0400 Systolic blood pressure 118 mm[Hg] Luis Fernando Tari DO Work Phone: [facility] Healthcare Encounters Encounter Date Encounter Type Care Provider Facility Start: 12-12-2024 End: 12-12-2024 Bamboo flowsheet Luis Fernando Tari DO Work Phone: [facility] Start: 12-12-2024 End: 12-12-2024 Bamboo flowsheet Luis Fernando Tari DO Work Phone: [facility] Start: 12-12-2024 End: 12-12-2024 flow sheet Luis Fernando Tari DO Work Phone: [facility] Comment on above: 17 weeks gestation o f ([facility]); Second trimester ([facility]); Screening, , for anatomic survey ([facility]); Exposure to STD; Vaginal discharge; Heartburn during in second trimester ([facility]) Start: 11-09-2024 End: 11-09-2024 Bamboo flowsheet Luis Fernando Tari DO Work Phone: [facility] Start: 11-09-2024 End: 11-09-2024 Bamboo flowsheet Luis Fernando Tari DO Work Phone: [facility] Start: 11-09-2024 End: 11-09-2024 flow sheet Luis Fernando Tari DO Work Phone: [facility] Comment on above: 12 weeks gestation o f ([facility]); First trimester ([facility]) Start: 11-09-2024 End: 11-09-2024 ambulatory LUIS FERNANDO TARI Not Available Start: 10-14-2024 End: 10-16-2024 Clinisync Result Encounter Luis Fernando Tari DO Work Phone: [facility] Unsolicited Start: 10-14-2024 End: 10-16-2024 Clinisync Result Encounter Luis Fernando Tari DO Work Phone: [facility] Unsolicited Start: 10-13-2024 End: 10-13-2024 Office outpatient visit 5 minutes Tari Nurse [facility] Comment on above: GA: 8w6d Start: 10-13-2024 End: 10-13-2024 ambulatory LUIS FERNANDO TARI Not Available Start: 09-12-2024 End: 09-12-2024 Clinisync Result Encounter Luis Fernando Tari DO Work Phone: [facility] Unsolicited Start: 09-12-2024 End: 09-12-2024 [...] 07-26-2020 End: 07-27-2020 ambulatory NONE LISTED REQUEST Facility:[facility]1 Procedures Date Procedure Procedure Detail Performing Clinician Start: 12-12-2024 Urnls dip stick/tabl et rgnt non-auto w/o micrscp Luis Fernando Tari DO Work Phone: Start: 11-09-2024 Urnls dip stick/tabl et rgnt non-auto w/o micrscp Luis Fernando Tari DO Work Phone: Start: 10-14-2024 ALL CBC WITH AUTO DIFF Luis Fernando Tari DO Work Phone: Start: 10-14-2024 BOX TEST Luis Fernando Fazi o DO Work Phone: Start: 10-13-2024 Urnls dip stick/tabl et rgnt non-auto w/o micrscp Luis Fernando Tari DO Work Phone: Start: 09-12-2024 TBH PREG QUANT HCG Core y Tari DO Work Phone: Start: 08-18-2024 IGP,APTIMA HPV,AGE GDLN Luis Fernando Tari DO Work Phone: Plan of Treatment Date Care Activity Detail Author Start: 01-10-2025 End: 01-10-2025 Patient encounter procedure 01/10/2025 11:00 AM EDT Routine [facility] [address] [place] [place] [phone] Judith Toure PA [address] [place] [address] [facility] Start: 01-10-2025 End: 01-10-2025 Professional / ancillary services management 01/10/2025 10:00 AM EDT Ancillary Procedure [facility] [address] [place] [phone] [facility] Start: 12-12-2024 End: 02-11-2025 Alpha fetoprotein, maternal Alpha fetoprotein, maternal Lab Routine 17 weeks gestation of ([facility]) Second trimester ([facility]) Expected: 12/12/2024 (Approximate), Expires: 02/11/2025 [facility] Comment on above: Expected: 12/12/2024 (Approximate), Expires: 02/11/2025 Start: 12-12-2024 End: 03-14-2025 US for US OB 14+ weeks anatomy scan Imaging Routine Screening, , for anatomic survey ([facility]) Expected: 12/12/2024, Expires: 03/14/2025 [facility] Comment on above: Expected: 12/12/2024 , Expires: 03/14/2025 Start: 12-12-2024 End: 12-12-2024 Patient encounter procedure 12/12/2024 9:20 AM EDT Routine [facility] [address] [facility] [place] [phone] Luis Fernando Marc, DO [address] [place] [address] Arrived [facility] Comment on above: Arrived Start: 12-11-2024 End: 12-11-2024 Patient encounter procedure 12/11/2024 9:20 AM EDT Routine [facility] [address] [place] [address] Luis Fernando Marc, DO [address] [place] [address] [facility] Start: 11-09-2024 End: 11-09-2024 Patient encounter procedure [facility] Comment on above: Arrived Start: 10-13-2024 End: 10-13-2025 ABO/Rh ABO/Rh Lab Routine Missed menses , unspecified gestational age ([facility]) Expected: 10/13/2024 (Approximate), Expires: 10/13/2025 [facility] Comment on above: Expected: 10/13/2024 (Approximate), Expires: 10/13/2025 Start: 10-13-2024 End: 10-13-2025 Blood type and Indirect antibody screen panel - Blood Type and screen Lab Routine Missed menses , unspecified gestational age ([facility]) Expected: 10/13/2024 (Approximate), Expires: 10/13/2025 [facility] Healthcare Work Phone: Comment on above: Expected: 10/13/2024 (Approximate), Expires: 10/13/2025 Start: 10-13-2024 End: 10-13-2025 Drugs of abuse panel - Urine by Screen method Rapid drug screen, urine Lab Routine , unspecified gestational age ([facility]) Encounter for supervision of normal first in first trimester ([facility]) Expected: 10/13/2024 (Approximate), Expires: 10/13/2025 [facility] Healthcare Comment on above: Expected: 10/13/2024 (Approximate), Expires: 10/13/2025 Start: 09-14-2024 End: 09-14-2024 Professional / ancillary services management 09/14/2024 11:00 AM EDT Ancillary Procedure [facility] [address] [place] [address] [place] [phone] [facility] Start: 08-18-2024 End: 08-18-2025 Antimullerian hormone ([facility]) Antimullerian hormone ([facility]) Lab Routine Irregular menstrual cycle Expected: 08/18/2024 (Approximate), Expires: 08/18/2025 [facility] Healthcare Comment on above: Expected: 08/18/2024 (Approximate), Expires: 08/18/2025 Start: 08-18-2024 End: 08-18-2025 DHEA DHEA Lab Routine Irregular menstrual cycle Expected: 08/18/2024 (Approximate), Expires: 08/18/2025 [facility] Healthcare Comment on above: Expected: 08/18/2024 (Approximate), Expires: 08/18/2025 Start: 08-18-2024 End: 08-18-2025 US Pelvis US Pelvis w/ TV Imaging Routine Irregular menstrual cycle Expected: 08/18/2024, Expires: 08/18/2025 [facility] Comment on above: Expected: 08/18/2024 , Expires: 08/18/2025 Start: 08-18-2024 End: 08-18-2024 Patient encounter procedure 08/18/2024 11:00 AM EDT Procedure Visit [facility] [address] [place] [phone] Luis Fernando Marc, DO [address] [place] [address] [place] [address] Arrived [facility] Comment on above: Arrived Bacteria identified in Urine by Culture Urine culture Microbiology Routine Missed menses Ordered: 10/13/2024 [facility] Comment on above: Ordered: 10/13/2024 CBC W Auto Different ial panel - Blood CBC and differential Lab Routine Irregular menstrual cycle Ordered: 08/18/2024 [facility] Comment on above: Ordered: 08/18/2024 CBC W Auto Different ial panel - Blood CBC and differential Lab Routine Missed menses , unspecified gestational age ([facility]) Ordered: 10/13/2024 [facility] Comment on above: Ordered: 10/13/2024 CHLAMYDIA TRACHOMATI S (GENITO/STI) CHLAMYDIA TRACHOMATIS (GENITO/STI) Lab Routine Exposure to STD Ordered: 12/12/2024 [facility] Comment on above: Ordered: 12/12/2024 Cytology Cervical or vaginal smear or scraping study Pap Smear Pathology and Cytology Routine Well woman exam with routine gynecological exam Ordered: 08/18/2024 [facility] Work Phone: Comment on above: Ordered: 08/18/2024 DHEA-sulfate DHEA-sulfate Lab Routine Irregular menstrual cycle Ordered: 08/18/2024 [facility] Comment on above: Ordered: 08/18/2024 Follicle stimulating hormone Follicle stimulating hormone Lab Routine Irregular menstrual cycle Ordered: 08/18/2024 [facility] Comment on above: Ordered: 08/18/2024 hCG, quantitative, hCG, quantitative, Lab Routine Irregular menstrual cycle Ordered: 08/18/2024 [facility] Comment on above: Ordered: 08/18/2024 Hemoglobin A1c/Hemoglobin.total in Blood Hemoglobin A1c Lab Routine Irregular menstrual cycle Ordered: 08/18/2024 [facility] Comment on above: Ordered: 08/18/2024 Hemoglobin A1c/Hemoglobin.total in Blood Hemoglobin A1c Lab Routine Missed menses , unspecified gestational age ([facility]) Ordered: 10/13/2024 [facility] Comment on above: Ordered: 10/13/2024 Hepatitis B virus surface Ag [Presence] in Serum or Plasma by Immunoassay Hepatitis B surface antigen Lab Routine Missed menses , unspecified gestational age ([facility]) Ordered: 10/13/2024 [facility] Comment on above: Ordered: 10/13/2024 Hepatitis C virus Ab [Presence] in Serum or Plasma by Immunoassay Hepatitis C antibody Lab Routine Missed menses , unspecified gestational age ([facility]) Ordered: 10/13/2024 [facility] Comment on above: Ordered: 10/13/2024 HIV-1/HIV-2 antigen/antibody combination immunoassay HIV-1 and HIV-2 antibodies Lab Routine Missed menses , unspecified gestational age ([facility]) Ordered: 10/13/2024 [facility] Comment on above: Ordered: 10/13/2024 Luteinizing hormone Luteinizing hormone Lab Routine Irregular menstrual cycle Ordered: 08/18/2024 [facility] Comment on above: Ordered: 08/18/2024 Neisseria gonorrhoea e DNA [Presence] in Unspecified specimen by SHANTHI with probe detection Neisseria gonorrhea DNA probe, direct Lab Routine Exposure to STD Ordered: 12/12/2024 [facility] Comment on above: Ordered: 12/12/2024 Progesterone Progesterone Lab Routine Irregular menstrual cycle Ordered: 08/18/2024 [facility] Comment on above: Ordered: 08/18/2024 Reagin Ab [Presence] in Serum by RPR RPR Lab Routine Missed menses , unspecified gestational age ([facility]) Ordered: 10/13/2024 [facility] Comment on above: Ordered: 10/13/2024 Rubella antibody, IgG Rubella an tibody, IgG Lab Routine Missed menses , unspecified gestational age ([facility]) Ordered: 10/13/2024 [facility] Comment on above: Ordered: 10/13/2024 SURESWAB(R) ADVANCED VAGINITIS PLUS, TMA SURESWAB(R) ADVANCED VAGINITIS PLUS, TMA Pathology and Cytology Routine Exposure to STD Vaginal discharge Ordered: 12/12/2024 [facility] Work Phone: Comment on above: Ordered: 12/12/2024 Thyrotropin [Units/volume] in Serum or Plasma TSH Lab Routine Irregular menstrual cycle Ordered: 08/18/2024 [facility] Comment on above: Ordered: 08/18/2024 Thyroxine (T4) free [Mass/volume] in Serum or Plasma T4, free Lab Routine Irregular menstrual cycle Ordered: 08/18/2024 [facility] Comment on above: Ordered: 08/18/2024 Payers Date Payer Category Payer Private Health Insurance [employer] [id number] 2019 Unknown [id number] 2000 Unknown [id number] 2000 Unknown [id number] 1259 2000 Unknown [id number] 1259 2000 Unknown [id number] [id number] 2000 Unknown [id number] [id number] 1959 Self-pay Unknown [id number] Unknown [id number] Unknown [id number] 593 Social History Date Type Detail Facility Tobacco smoking stat [facility] Tobacco smoking consumption unknown [facility] Start: 2000 Sex assigned at Not on file [facility] Gender identity Not [facility] file [facility] Start: 08-26-2024 [facility] Goals Date Patient Goal Desired Activity /State Personal health goal History of Present illness Narrative 12-12-2024 Rahel Davalos LPN - 12/12/2024 9:20 AM EDT Note Date & Type Note Facility 12-12-2024 History of Presen t illness Narrative Reason [...] PROBLEMS Active Ambulatory Problems Diagnosis Date Noted Mittelschmerz 08/18/2024 Irregular menstrual cycle 08/18/2024 Well woman [...] nursing note reviewed. Exam conducted with a slab stripper present. Vitals: Estimated body mass index is 28.46 kg/m as calculated from the following: Height as of 08/18/24: 5' 4 . Weight as of this encounter: 165 lb 12.8 oz. BP: 112/72 Patient's last menstrual period was 08/04/2024. ASSESSMENT & PLAN ICD-10-CM 1. 17 weeks gestation of ([facility]) Z3A.17 POCT urinalysis dipstick manually resulted Alpha fetoprotein, maternal Alpha fetoprotein, maternal 2. Second trimester ([facility]) Z34.92 POCT urinalysis dipstick manually resulted Alpha fetoprotein, maternal Alpha fetoprotein, maternal 3. Screening, , for anatomic survey ([facility]) Z36.89 US OB 14+ weeks anatomy scan [...] by Rahel Davalos LPN on behalf of: Luis Fernando Marc DO documented in this encounter [facility] History of Present illness Narrative 11-09-2024 SHEILA Mcknight - 11/09/2024 9:10 AM EDT Note Date & Type Note Facility 11-09-2024 History of Presen t illness Narrative Reason for Appointment: Patient ID: Darien Jimenez is a 24 y.o. female who presents for Routine Visit Patient presents today for Return OB appointment. MEDICATIONS Current Outpatient Medications Medication Instructions docusate sodium (COLACE) 100 mg, Oral, 2 times daily PRN ondansetron ODT (ZOFRAN-ODT) 4 mg, Oral, Every 6 hours PRN Vit-Fe Fumarate-FA ( Vitamins) 28-0.8 MG tablet 1 tablet, Oral, Daily ALLERGIES No Known Allergies PROBLEMS Active Ambulatory Problems Diagnosis Date Noted Mittelschmerz 08/18/2024 Irregular menstrual cycle 08/18/2024 Well woman exam with routine gynecological exam 08/18/2024 Resolved Ambulatory Problems Diagnosis Date Noted No Resolved Ambulatory Problems No Additional Past Medical History HISTORY PAST MEDICAL HISTORY SOCIAL HISTORY History reviewed. No pertinent past medical history. Social History Tobacco Use Smoking status: Not [...] Exam Constitutional: Appearance: Normal appearance. She is normal weight. HENT: Head: Normocephalic. Cardiovascular: Rate and Rhythm: Normal rate. Pulses: Normal pulses. Pulmonary: Effort: Pulmonary effort is normal. Breath sounds: Normal breath sounds. Abdominal: Palpations: Abdomen is soft. Musculoskeletal: General: Normal range of motion. Neurological: General: No focal deficit present. Mental Status: She is alert and oriented to person, place, and time. Psychiatric: Mood and Affect: Mood normal. Behavior: Behavior normal. Thought Content: Thought content normal. Judgment: Judgment normal. Vitals and nursing note reviewed. Vitals: Estimated body mass index is 27.31 kg/m as calculated from the following: Height as of 08/18/24: 5' 4 . Weight as of this encounter: 159 lb 1.9 oz. BP: 110/70 Patient's last menstrual period was 08/04/2024. ASSESSMENT & PLAN ICD-10-CM 1. 12 weeks gestation of ([facility]) Z3A.12 POCT urinalysis dipstick manually resulted 2. First trimester ([facility]) Z34.91 POCT urinalysis dipstick manually resulted Return OB: Patient presents today for a routine obstetrics appointment. Patient is currently 12w5d . Patient states she is doing well but has complaints of being tired due to current . Patient has verbalizes frequent movement. Orders Placed This Encounter Procedures POCT urinalysis dipstick manually resulted Follow Up: Patient is to return to office in 4 week for routine OB appointment. Documented by SHEILA Mcknight on behalf of: Luis Fernando Marc DO documented in this encounter [facility] History of Present illness Narrative 10-13-2024 Sherrell [...] History: Active Ambulatory Problems Diagnosis Date Noted Allegra [...] dipstick manually resulted , unspecified gestational age ([facility]) - Type and screen; Future - ABO/Rh; Future - CBC and differential - Hemoglobin A1c - RPR - Rubella antibody, IgG - Hepatitis B surface antigen - Hepatitis C antibody - HIV-1 and HIV-2 antibodies - Rapid drug screen, urine; Future Encounter for supervision of normal first in first trimester ([facility]) - Rapid drug screen, urine; Future Nurse Note: Patient desires to have [place] billion to one. Pt was advised to make sure to have both [place] and labs done together at 9 weeks. Pt is currently 8 weeks 6 days today. Pt desires NOT to know the Gender and the box was checked on the [facility]oho order. OB Intake: Patient presents today for first OB visit. Patients history has been reviewed in great detail including any potential risks. Patient signed consent forms and patient desires testing in both trimesters. Patient currently has no complaints and has been advised to drink 6-8 glasses of water a day, eat no raw or undercooked meat, and stay away from [facility]. Patient has also been advised to [...] PROBLEMS Active Ambulatory Problems Diagnosis Date Noted Sandroterebeccamerz 08/18/2024 Irregular menstrual cycle 08/18/2024 Well woman [...] nursing note reviewed. Exam conducted with a slab stripper present. Vitals: Estimated body mass index is [...] exam Routine gynecological examination Irregular menstrual cycle Allegra documented in this encounter [facility] Evaluation note Note Date & Type Note Facility Evaluation note Diagnosis Amenorrhea Absence of menstruation Missed menses , unspecified gestational age ([facility]) Encounter for supervision of normal first in first trimester ([facility]) documented in this encounter [facility] Evaluation note Note Date & Type Note Facility Evaluation note Diagnosis 12 weeks gestation of ([facility]) First trimester ([facility]) state, incidental documented in this encounter [facility] Evaluation note Note Date & Type Note Facility Evaluation note Diagnosis 17 weeks gestation of ([facility]) Second trimester ([facility]) state, incidental Screening, , for anatomic survey ([facility]) Encounter for anatomic survey Exposure to STD Vaginal discharge Leukorrhea, not specified as infective Heartburn during in second trimester ([facility]) documented in this encounter [facility] Summary Purpose Family History No Family History Records FoundNo Family History Records FoundNo Family History Records Found Advance Directives No Advanced Directives Records FoundNo Advanced Directives Records FoundNo Advanced Directives Records Found Additional Source Comments INFORMATION SOURCE (unrecogn ized section and content) DATE CREATED AUTHOR 09/13/2019 [facility] DATE CREATED AUTHOR AUTHOR'S ORGANIZ ATION 05/09/2021 [facility] DATE CREATED AUTHOR AUTHOR'S ORGANIZ ATION 11/12/2024 [facility] EPIC Reason for Visit (unrecogniz ed section and content) Reason Comments Gynecologic Exam Reason Comments Amenorrhea Reason Comments Routine Visit Reason Comments Routine Visit STI Screening FOR RECORDS PERTAINING TO PATIENTS WHO ARE [...] BE BASED ON THE PRIMARY CLINICAL RECORDS. [facility]. provides no warranty or guarantee of the accuracy or completeness of information in this document.
== END 2024-12-12 10:16 | disposition home or self-care (01) ==
PROVIDERS: PCP Family Medicine; Visit Provider Obstetrics & Gynecology
DX: Z34.92 Encounter for supervision of normal pregnancy, unspecified, second trimester (principal); Z31.7 Encounter for procreative management and counseling for gestational carrier
CPT/HCPCS: 36415; 82105

== ENCOUNTER 2025-01-10 20:46 | Outpatient (REF) | payer OTHER, SELFPAY ==
--- OUTSIDE RECORDS SUMMARY | 2025-01-10 20:52 | XMS_ITS | CCD ---
Author Organization [facility] Care Team Providers Care Replenisher Name Role Phone REQUEST, DR PAGE LISTED [...] Care Provider LUIS FERNANDO Lee Attending Unavailable TARI, LUIS FERNANDO Attending Unavailable LUIS FERNANDO MARC Attending Unavailable Medications Current Medications Medication Drug Class(es) Dates Sig (Normalized) Sig (Original) docusate sodium 100 mg oral capsule (12 sources) Start: 10-11-2024 End: 12-04-2025 take 1 capsule by mouth twice daily as needed for constipation docusate sodium (Colace) 100 MG capsule Indications: Constipation, unspecified constipation type Take 1 capsule (100 mg) by mouth 2 (two) times a day as needed for constipation 30 capsule 11 12/04/2024 12/04/2025 Active Famotidine (6 sources) Histamine-2 Receptor Antagonist take 1 tablet [...] disintegrating tablet Indications: Nausea and vomiting in ([facility]) Take 1 tablet (4 mg) by mouth every 6 (six) hours if needed for nausea or vomiting 30 tablet 2 10/19/2024 11/18/2024 Active pantoprazole 40 mg delayed release oral tablet (6 sources) Proton Pump Inhibitor Start: 12-12-2024 End: 12-12-2025 take 1 tablet by mouth once before mealtime pantoprazole (Protonix) 40 MG EC tablet Indications: Heartburn during in second trimester ([facility]) Take 1 tablet (40 mg) by mouth in the morning. Take before meals. Do not crush, chew, or split. 30 tablet 11 12/12/2024 12/12/2025 Active Vit-Fe Fumarate-FA ( Vitamins) 28-0.8 MG tablet (13 sources) Start: 09-12-2024 End: 09-12-2025 take 1 [...] transmissible disorder] Onset: 04-08-2021 Episodic Menstrual disorders (18 sources) Irregular periods; Translations: [Irregular menstruation, unspecified] Onset: 08-18-2024 08-18-2024 Chronic Other complications of (2 sources) Heartburn; Translations: [Other specified related conditions, second trimester] 12-12-2024 Episodic Other female genital disorders (16 sources) Mittelschmerz; Translations: [Mittelschmerz] Onset: 08-18-2024 08-18-2024 Chronic Other female genital disorders (2 sources) Vaginal discharge; Translations: [Other specified noninflammatory disorders of vagina] 12-12-2024 Episodic Other and delivery including normal (8 sources) ; Translations: [Encounter for supervision of [...] [17 weeks gestation of ] 12-12-2024 Episodic Residual codes; unclassified (2 sources) Gestation period, 21 weeks; Translations: [21 weeks gestation of ] 01-10-2025 Episodic Skin and subcutaneous tissue infections (2 sources) Impetigo; Translations: [Impetigo, unspecified] Onset: 12-20-2024 12-20-2024 Episodic Unclassified (3 sources) CONTACT W/AND (SUSP) EXPOS COVID-19; Translations: [CONTACT W/AND (SUSP) EXPOS COVID-19] Onset: 04-27-2021 Unclassified (6 sources) OB Reminders Onset: 12-12-2024 12-12-2024 Past or Other Problems Problem Classification Problem Date Documented Da te Episodic/Chronic Unclassified (1 source) CONTACT W/AND (SUSP) EXPOS COVID-19; Translations: [CONTACT W/AND (SUSP) EXPOS COVID-19] Onset: 04-21-2021 Results Test Name Value Interpretation Reference Range Facility Urinalysis macro (dipstick) panel (U)on 01-10-2025 Bilirubin, UA Negative Negative - 4(70) +++ mg/dL [facility] Blood, UA Negative Negative - 50 Iam/mcL [facility] Clarity, UA Clear [facility] re Color, UA Yellow [facility] e Glucose, UA Negative Negative - 1999(110) ++++ mg/dL [facility] Interpretation and review of laboratory results Normal [facility] re Ketones, UA Negative Negative - 160(16) ++++ mg/dL [facility] Leukocytes, UA Negative Negative - 500+++ Zakia/mcL [facility] Nitrite, UA Negative Negative - Positive [facility] pH, UA 6.5 5 - 9 [facility] Healthcar e Protein, UA Negative Negative - 1999(20) ++++ mg/dL [facility] Spec Grav, UA 1.02 1 - 1.03 [facility] care Urobilinogen, UA 1.0 0.2 - 12 mg/dL [facility] AFP, SERUM, OPEN SPINA BIFID Aon 12-14-2024 AFP MOM 0.84 . [facility] e AFP VALUE 31.4 ng/mL . [facility] Healthcar e COMMENT: Comment . [facility] Healthcar e Comment on above: Carlene Fernandes , Ph.D., [facility] Director References: Available Upon Request. Multiples Of Median Cutoffs For AFP Elevations Bhandari 2.5 Black 2.8 IDD 2.0 Twins 4.5 Abbreviation Definitions IDD - Insulin Dep Diabetes OSBR - Open Spina Bifida Risk For further inquiries contact [employer] at [phone]. This test was developed and its performance characteristics determined by [employer]. It has not been cleared or approved by the Food and Drug Administration. Performed at: [facility] [address], [place] [id number] Weaver Hand: Shannan Christensen Former[facility], Phone: [phone] GEST. AGE ON COLLECTION DATE 17.4 . weeks [facility] GESTAT. AGE BASED ON Ultrasound . [facility] Comment on above: 17.4 on 12/12/2024 Recalculations are not recommended when gestational dating by LMP and ultrasound are within 10 days. INSULIN DEP DIABETES No . [facility] INTERPRETATION Comment . [facility] hcare Comment on above: Interpretation: Scre en Negative This result is screen negative for OSB. The AFP MoM calculated is based on the gestational age provided. MS-AFP can identify up to 80% of open neural tube defects. Closed neural tube defects and some open defects may not be detected by this test. This test does not screen for Down Syndrome or Trisomy 18. If screening for Down Syndrome or Trisomy 18 is desired, contact [employer] to discuss available options. The [place] [employer] recommends amniocentesis be offered to women age 35 and older. [age] [facility] MULTIPLE GESTATION No . [facility] H ealth[facility] [place] [place] [id number] . [facility] al[facility]az RACE . [facility] [employer] e RESULTS Report . [facility] e TEST RESULTS: Negative . [facility] WEIGHT 165 . lbs [facility] e N N ULTRASOUND [id number] [phone] N 1 Y 165 N N N N N White/ [facility] e RECURRENT VAGINITIS (HTRX)on 12-13-2024 ATOPOBIUM VAGINAE 0 [facility] ATOPOBIUM VAGINAE Not detected [facility] BVAB 2,3 (BACTERIAL VAGINOSIS ASSOCIATED BACTERIA 2, 3); MOBILUNCUS SPP 0 [facility] BVAB 2,3 (BACTERIAL VAGINOSIS ASSOCIATED BACTERIA 2, 3); [employer]OBIL[employer] SPP Not detected [facility] BRAYAN ALBICANS, PARAPSILOSIS, TROPICALIS 0 [facility] BRAYAN ALBICANS, PARAPSILOSIS, TROPICALIS Not detected [facility] BRAYAN GLABRATA 0 [facility] BRAYAN GLABRATA Not detected [facility] e[facility] BRAYAN KRUSEI 0 [facility] Healt hcare BRAYAN KRUSEI Not detected [facility] CHLAMYDIA TRACHOMATIS 0 [facility] CHLAM[facility] TRACHOMATIS Not detected [facility] GARDNERELLA VAGINALIS 0 [facility] GARDNERELLA VAGINALIS Not detected [facility] MEGASPHAERA (TYPES 1, 2) 0 [facility] MEGASPHAERA (TYPES 1, 2) Not detected [facility] MYCOPLASMA GENITALIUM 0 [facility] MYCOPLASMA GENITALIUM Not detected [facility] NEISSERIA GONORRHOEAE 0 [facility] NEISSERIA GONORRHOEAE Not detected [facility] TRICHOMONAS VAGINALIS 0 [facility] TRICHOMONAS VAGINALIS Not detected [facility] Urinalysis macro (dipstick) panel (U)on 12-12-2024 Bilirubin, UA Negative Negative - 4(70) +++ mg/dL [facility] Blood, UA Negative Negative - 50 Iam/mcL [facility] Clarity, UA Clear [facility] Healthca re Color, UA Yellow [facility] Healthcar e Glucose, UA Negative Negative - 1999(110) ++++ mg/dL [facility] Interpretation and review of laboratory results Abnormal [facility] re Ketones, UA Negative Negative - 160(16) ++++ mg/dL [facility] Leukocytes, UA 3+ Negative - 500+++ Zakia/mcL [facility] Nitrite, UA Negative Negative - Positive [facility] pH, UA 6 5 - 9 [facility] Healthcar e Protein, UA Few Negative - 1999(20) ++++ mg/dL [facility] Spec Grav, UA 1.02 1 - 1.03 [facility] Urobilinogen, UA 0.2 0.2 - 12 mg/dL [facility] Urinalysis macro (dipstick) panel (U)on 11-09-2024 Bilirubin, UA Negative Negative - 4(70) +++ mg/dL [facility] Blood, UA Negative Negative - 50 Iam/mcL [facility] Clarity, UA Cloudy [facility] re Color, UA Yellow [facility] Healthcar e Glucose, UA Negative Negative - 1999(110) ++++ mg/dL [facility] Interpretation and review of laboratory results Abnormal [facility] re Ketones, UA Negative Negative - 160(16) ++++ mg/dL [facility] Leukocytes, UA Moderate Negative - 500+++ Zakia/mcL [facility] Nitrite, UA Negative Negative - Positive [facility] pH, UA 7.5 5 - 9 [facility] Protein, UA Negative Negative - 2000(20) ++++ mg/dL [facility] Spec Grav, UA 1.02 1 - 1.03 [facility] Urobilinogen, UA 1.0 0.2 - 12 mg/dL [facility] Healthcar e ALL CBC WITH AUTO DIFFon BASOPHILS ABSOLUTE AUTO 0 [facility] Basophils/100 WBC (Bld) 0.3 % 0.2 - 2.0 % [facility] Eosinophils/100 WBC (Bld) 2 % 0.9 - 7.0 % [facility] Erythrocyte distribution width (RBC) [Ratio] 12.4 % 11.0 - 15.0 % [facility] Hematocrit (Bld) [Volume fraction] 38.9 % 36.0 - 48.0 % [facility] Hemoglobin (Bld) [Mass/Vol] 13.9 g/dL 12.0 - 16.0 g/dL [facility] IMMATURE GRANULOCYTES ABS AUTO 0.02 [facility] Immature granulocytes/100 WBC (Bld) 0.3 % 0.0 - 0.5 % [facility] Interpretation and review of laboratory results Abnormal [facility] re LYMPHOCYTES ABSOLUTE AUTO 1.9 [facility] Lymphocytes/100 WBC (Bld) 27.8 % 20.5 - 60.0 % [facility] MCH (RBC) [Entitic mass] 30.7 pg 26.7 - 34.0 pg [facility] MCHC (RBC) [Mass/Vol] 35.7 g/dL High 29.9 - 35.2 g/dL [facility] MCV (RBC) [Entitic vol] 85.9 fL 81.0 - 99.0 fL [facility] MONOCYTES ABSOLUTE AUTO 0.4 [facility] Monocytes/100 WBC (Bld) 5.4 % 1.7 - 12.0 % [facility] NEUTROPHILS ABSOLUTE AUTO 4.3 [facility] Neutrophils/100 WBC (Bld) 64.2 % 43.0 - 75.0 % [facility] Platelet mean volume (Bld) [Entitic vol] 9 fL Low 9.5 - 13.5 fL [facility] Healthcare TB EO # 0.1 [facility] TBH PLT 226 [facility] TB RBC 4.53 [facility] TBH WBC 6.7 [facility] BOX TESTon 10-14-2024 BOX TEST SENT OUT AARON Schwarz [facility] [address] [facility] Healthcar e [address]OX[address] 10/14/24 [facility] HCG ( test) Ql (U)o n 10-13-2024 Interpretation and review of laboratory results Abnormal [facility] Healthca re Preg Test, Ur Positive Negative [facility] care [facility] US OB TRANSVAGINALon 025 [...] II, MD, PHD at 16-Oct-2024 08:55:44 AM [facility] Normal Not Available Comment on above: Order Comment: US OB TRANSVAGINAL No LMP recorded. Urinalysis macro (dipstick) panel (U)on 10-13-2024 Bilirubin, UA Negative Negative - 4(70) +++ mg/dL [facility] Blood, UA Positive Negative - 50 Iam/mcL [facility] Comment on above: trace Clarity, UA Clear [facility] [employer]ms re Color, UA Yellow [facility] [employer] e Glucose, UA Negative Negative - 1999(110) ++++ mg/dL [facility] Ketones, UA Negative Negative - 160(16) ++++ mg/dL [facility] Leukocytes, UA Positive Negative - 500+++ Zakia/mcL [facility] Comment on above: small Nitrite, UA Negative Negative - Positive [facility] pH, UA 6.5 5 - 9 [facility] [employer] e Protein, UA Negative Negative - 1999(20) ++++ mg/dL [facility] Spec Grav, UA 1.02 1 - 1.03 [facility] Urobilinogen, UA 0.2 0.2 - 12 mg/dL [facility] [employer] TBH PREG QUANT HCGon 09-12- 025 HCG QUANTITATIVE 230 mIU/mL [facility] lthcare Comment on above: 5-50 0.2-1 WEEK 50-500 1-2 WEEKS 100-5,000 2-3 WEEKS 500-10,000 3-4 WEEKS 1,000-50,000 4-5 WEEKS 10,000-100,000 5-6 WEEKS 15,000-200,000 6-8 WEEKS 10,000-100,000 2-3 MONTHS CLIN[facility] [employer] e IGP,APTIMA HPV,AGE GDLNon AGE GDLN ACOG TESTING Note . [facility] Comment on above: TESTS RESULT FLAG UN ITS REF RANGE LAB Clinician Provided Cytology Information Source.............Cervix;Endocervix No. of containers..01 ThinPrep Vial Age Yandel NAGEL Cheli... FLAG LEGEND: L-Low Normal,H-High Normal,LL-Alert Low,HH-Alert High <-Panic Low,>-Panic High,A-Abnormal,AA-Critical Abnormal Performed at: 01 =G [facility] [address] [place] [address] Bebe Pleitez MD, IGP, RFX APTIMA HPV ASCU Note . [facility] Comment on above: TESTS RESULT FLAG UN ITS REF RANGE LAB DIAGNOSIS: 02 NEGATIVE FOR INTRAEPITHELIAL LESION OR MALIGNANCY. Specimen adequacy: 02 Satisfactory for evaluation. Endocervical and/or squamous metaplastic cells (endocervical component) are present. Performed by: Kevin Loya Security Consultant ([facility]) . 02 Note: Note 02 The Pap [...] <-Panic Low,>-Panic High,A-Abnormal,AA-Critical Abnormal Performed at: [address] [address] Bebe Pleitez MD, Performed at: =G - [facility] [id number] Weaver Hand: Bebe Pleitez MD, Phone: [phone] Performed at: [facility] [address] [id number] Weaver Hand: Bebe Pleitez MD, Phone: [phone] BRUSH-SPATULA CERVIX ENDOCERVIX CLINIS[facility]NC [facility] Covid-19 PCR ([facility])on 03-27 SARS-CoV-2 (COVID-19) RNA SHANTHI+probe Ql (Unsp spec) Not detected Normal NOT DETECTED [facility] Comment on above: Result Comment: This test is not yet approved or cleared by the [place] FDA. When there are no FDA-approved or cleared tests available, and other criteria are met, FDA can make tests available under an emergency access mechanism called an Emergency Use Authorization (EUA). The EUA for this test is supported by the Nurse Midwife/Clinical Instructor of Health and Human Service's (HHS's) declaration [...] consistent with SARS-CoV-2. Performed By: #### C [facility] #### [facility] [address] [address] [address] Chitra Pineda OBSOLETEon 09-12-2019 OBSOLETE Refill ([place]) DARIEN JIMENEZ ([id number]) 1 F Date Time Provider Department 09/12/19 [...] Status:Closed by DOUG OLVERA MD on 09/13/19 [facility] CNOVSP Visit (SP) Office ([place]) DARIEN JIMENEZ ([id number]) 1 F Date Time Provider Department 06/23/19 [...] Doug Olvera MD CC: Steffany Rodriguez MD [address] [place] [phone] Referring Provider: DOUG OLVERA [[id number]] Allergies As of Date: 06/23/2019 (No Known [...] [R19.5] 05/05/2019 Visit Notes: >> Swathi Keyes Fri Jun 23, 2019 3:58 PM Status: Signed Patient states still having bouts of fatigue and SOB when exercising. Encounter Status:Closed by DOUG OLVERA MD on 06/23/19 Normal [facility] PROGRESSon 06-23-2019 PROGRESS HNO ID: [id number] Author: Doug Olvera Service: ? Author Type: [...] Doug Olvera MD CC: Steffany Rodriguez MD [address] [place] [phone] Normal [facility] CNOVSPon 05-24-2019 CNOVSP Visit (SP) Office ([place]) DARIEN JIMENEZ ([id number]) 1 F Date Time Provider Department 05/24/19 [...] results of GI workup and biopsies from [place]. Doug Olvera MD CC: severe Iron deficiency [...] FOLATE SERUM CC: SELF Steffany Rodriguez MD [address] [place] [phone] Doug Olvera MD Referring Provider: SELF [[id number]] Allergies As of Date: 05/24/2019 (No Known Allergies) Date Reviewed: 05/24/2019 Reviewed by: Tawny Westbrook - Fully Assessed Reason for Visit: Anemia [6] Cmt: new patient consult Primary Visit Diagnosis:Iron deficiency anemia due to chronic blood loss [D50.0] Order(s):CBC + DIFF (FOR REMOTE [facility] USE) [SQRCBCDF] Order #: [id number] FUTURE COMP METABOLIC PANEL [SQCMP] Order #: [id number] FUTURE IRON + TIBC [SQIRON] Order #: [id number] FUTURE FERRITIN BLD [SQFERR] Order #: [id number] FUTURE RETIC COUNT [SQRETIC] Order #: [id number] FUTURE VITAMIN B12 BLOOD [SQB12] Order #: [id number] FUTURE FOLATE SERUM [SQSERFOL] Order #: [id number] FUTURE Disposition: Return in about 4 weeks [...] by DOUG OLVERA MD on 05/25/19 Normal [facility] PROGRESSon 05-24-2019 PROGRESS HNO ID: [id number] Author: Doug Olvera Service: ? Author Type: [...] results of GI workup and biopsies from [place]. Doug Olvera MD CC: severe Iron deficiency [...] or swollen nodes MEDICATIONS: levonorgestrel-ethinyl estradiol (LEVORA 0.15/, 28,) 0.15-0.03 mg [...] diagnosis) Plan: CBC + DIFF (FOR REMOTE [facility] USE), COMP METABOLIC PANEL, IRON + TIBC, FERRITIN BLD, RETIC COUNT, VITAMIN B12 BLOOD, FOLATE SERUM CC: SELF Steffany Rodriguez MD [address] [facility] [phone] Doug Olvera MD Normal [facility] Vital Signs Date Time Vital Sign Value Performing Clinician Cesar cerda 01-10-2025 10:51-0400 Body mass index (BMI) [Ratio] 29.15 kg/m2 Judith SOSA Work Phone: [facility] 01-10-2025 10:51-0400 Body weight 77.02 kg Judith SOSA Work Phone: [facility] 01-10-2025 10:51-0400 Diastolic blood pressure 74 mm[Hg] Judith SOSA Work Phone: [facility] 01-10-2025 10:51-0400 Systolic blood pressure 112 mm[Hg] Judith SOSA Work Phone: [facility] 12-12-2024 09:31-0400 Body mass index (BMI) [Ratio] 28.46 kg/m2 Luis Fernando Tari DO Work Phone: [facility] 12-12-2024 09:31-0400 Body weight 75.21 kg Luis Fernando Tari DO Work Phone: [facility] 12-12-2024 09:31-0400 Diastolic blood pressure 72 mm[Hg] Luis Fernando Tari DO Work Phone: [facility] 12-12-2024 09:31-0400 Systolic blood pressure 112 mm[Hg] Luis Fernando Tari DO Work Phone: [facility] 11-09-2024 09:08-0400 Body mass index (BMI) [Ratio] 27.31 kg/m2 Luis Fernando Tari DO Work Phone: [facility] 11-09-2024 09:08-0400 Body weight 72.18 kg Luis Fernando Tari DO Work Phone: [facility] 11-09-2024 09:08-0400 Diastolic blood pressure 70 mm[Hg] Luis Fernando Tari DO Work Phone: [facility] 11-09-2024 09:08-0400 Systolic blood pressure 110 mm[Hg] Luis Fernando Tari DO Work Phone: [facility] 10-13-2024 09:26-0400 Body mass index (BMI) [Ratio] 27.64 kg/m2 Tari Ob [facility] 10-13-2024 09:26-0400 Body weight 73.03 kg Tari Ob [facility] 10-13-2024 09:26-0400 Diastolic blood pressure 72 mm[Hg] Tari Ob [facility] 10-13-2024 09:26-0400 Systolic blood pressure 118 mm[Hg] Tari Ob [facility] 08-18-2024 10:59-0400 Body height 162.6 cm Luis Fernando Tari DO Work Phone: [facility] 08-18-2024 10:59-0400 Body mass index (BMI) [Ratio] 27.12 kg/m2 Luis Fernando Tari DO Work Phone: [facility] 08-18-2024 10:59-0400 Body weight 71.67 kg Luis Fernando Tari DO Work Phone: [facility] 08-18-2024 10:59-0400 Diastolic blood pressure 70 mm[Hg] Luis Fernando Tari DO Work Phone: [facility] 08-18-2024 10:59-0400 Systolic blood pressure 118 mm[Hg] Luis Fernando Tari DO Work Phone: [facility] Encounters Encounter Date Encounter Type Care Provider Facility Start: 01-10-2025 End: 01-10-2025 flow sheet Judith SOSA Work Phone: [facility] Comment on above: 21 weeks gestation o f ([facility]); Second trimester ([facility]) Start: 12-12-2024 End: 12-12-2024 Bamboo flowsheet Luis Fernando Tari DO Work Phone: [facility] Start: 12-12-2024 End: 12-14-2024 Bamboo flowsheet Luis Fernando Tari DO Work Phone: [facility] Start: 12-12-2024 End: 12-14-2024 Clinisync Result Encounter Luis Fernando Tari DO Work Phone: [facility] Unsolicited Start: 12-12-2024 End: 12-13-2024 External Result Encounter Luis Fernando Tari DO Work Phone: [facility] Unsolicited Start: 12-12-2024 End: 12-12-2024 flow sheet Luis Fernando Tari DO Work Phone: [facility] Comment on above: 17 weeks gestation o f ([facility]); Second trimester ([facility]); Screening, , for anatomic survey ([facility]); Exposure to STD; Vaginal discharge; Heartburn during in second trimester ([facility]) Start: 12-12-2024 End: 12-12-2024 ambulatory LUIS FERNANDO TARI Not Available Start: 11-09-2024 End: 11-09-2024 Bamboo flowsheet Luis Fernando Tair DO Work Phone: [facility] Start: 11-09-2024 End: 11-09-2024 Bamboo flowsheet Luis Fernando Tari DO Work Phone: [facility] Start: 11-09-2024 End: 11-09-2024 flow sheet Luis Fernando Tari DO Work Phone: [facility] Comment on above: 12 weeks gestation o f ([facility]); First trimester ([facility]) Start: 11-09-2024 End: 11-09-2024 ambulatory LUIS FERNANDO [...] Date Procedure Procedure Detail Performing Clinician Start: 01-10-2025 Urnls dip stick/tabl et rgnt non-auto w/o micrscp Judith SOSA Work Phone: Start: 12-12-2024 AFP, SERUM, OPEN SPI NA BIFIDA Luis Fernando Tari DO Work Phone: Start: 12-12-2024 Urnls dip stick/tabl et rgnt non-auto w/o micrscp Luis Fernando Tari DO Work Phone: Start: 12-12-2024 RECURRENT VAGINITIS (HTRX) Luis Fernando Tari DO Work Phone: Start: [...] Treatment Date Care Activity Detail Author Start: 02-08-2025 End: 02-08-2025 Patient encounter procedure 02/08/2025 9:00 AM EDT Routine [facility] [address] [place] [address] Luis Fernando Marc, DO [address] [place], [place] [id number] [facility] Start: 01-10-2025 End: 01-10-2025 Patient encounter procedure 01/10/2025 11:00 AM EDT Routine [facility] [address] [place] [address] Judith Toure PA [address] [place] [address] [facility] Start: 01-10-2025 End: 01-10-2025 Professional / ancillary services management 01/10/2025 10:00 AM EDT Ancillary Procedure [facility] [address] [place] [phone] [facility] Start: 12-12-2024 End: 02-11-2025 Alpha fetoprotein, maternal Alpha fetoprotein, maternal Lab Routine 17 weeks gestation of ([facility]) Second trimester ([facility]) Expected: 12/12/2024 (Approximate), Expires: 02/11/2025 [facility] Comment on above: Expected: 12/12/2024 (Approximate), Expires: 02/11/2025 Start: 12-12-2024 End: 03-14-2025 US for US OB 14+ weeks anatomy scan Imaging Routine Screening, , for anatomic survey ([facility]) Expected: 12/12/2024, Expires: 03/14/2025 [facility] Comment on above: Expected: 12/12/2024 , Expires: 03/14/2025 Start: 12-12-2024 End: 12-12-2024 Patient encounter procedure 12/12/2024 9:20 AM EDT Routine [facility] [address] [place] [phone] Luis Fernando Marc, DO [address] [place] [address] Arrived [facility] Comment on above: Arrived Start: 12-11-2024 End: 12-11-2024 Patient encounter procedure 12/11/2024 9:20 AM EDT Routine [facility] [address] [place] [address] Luis Fernando Marc, DO [address] [place] [address] [facility] Start: 11-09-2024 End: 11-09-2024 Patient encounter procedure [facility] Comment on above: Arrived Start: 10-13-2024 End: 10-13-2025 ABO/Rh ABO/Rh Lab Routine Missed menses , unspecified gestational age ([facility]) Expected: 10/13/2024 (Approximate), Expires: 10/13/2025 [facility] Comment on above: Expected: 10/13/2024 (Approximate), Expires: 10/13/2025 Start: 10-13-2024 End: 10-13-2025 Blood type and Indirect antibody screen panel - Blood Type and screen Lab Routine Missed menses , unspecified gestational age ([facility]) Expected: 10/13/2024 (Approximate), Expires: 10/13/2025 [facility] Healthcare Work Phone: Comment on above: Expected: 10/13/2024 (Approximate), Expires: 10/13/2025 Start: 10-13-2024 End: 10-13-2025 Drugs of abuse panel - Urine by Screen method Rapid drug screen, urine Lab Routine , unspecified gestational age ([facility]) Encounter for supervision of normal first in first trimester ([facility]) Expected: 10/13/2024 (Approximate), Expires: 10/13/2025 [facility] Healthcare Comment on above: Expected: 10/13/2024 (Approximate), Expires: 10/13/2025 Start: 09-14-2024 End: 09-14-2024 Professional / ancillary services management 09/14/2024 11:00 AM EDT Ancillary Procedure [facility] [address] [place] [address] [place] [id number] [facility] Start: 08-18-2024 End: 08-18-2025 Antimullerian hormone (AMH) Antimullerian hormone (AMH) Lab Routine Irregular menstrual cycle Expected: 08/18/2024 (Approximate), Expires: 08/18/2025 [facility] Comment on above: Expected: 08/18/2024 (Approximate), Expires: 08/18/2025 Start: 08-18-2024 End: 08-18-2025 DHEA DHEA Lab Routine Irregular menstrual cycle Expected: 08/18/2024 (Approximate), Expires: 08/18/2025 [facility] Comment on above: Expected: 08/18/2024 (Approximate), Expires: 08/18/2025 Start: 08-18-2024 End: 08-18-2025 US Pelvis US Pelvis w/ TV Imaging Routine Irregular menstrual cycle Expected: 08/18/2024, Expires: 08/18/2025 [facility] Comment on above: Expected: 08/18/2024 , Expires: 08/18/2025 Start: 08-18-2024 End: 08-18-2024 Patient encounter procedure 08/18/2024 11:00 AM EDT Procedure Visit [facility] [address] [place] [id number] Luis Fernando Marc DO [address] [place] [address] Arrived [facility] Comment on above: Arrived Bacteria identified in Urine by Culture Urine culture Microbiology Routine Missed menses Ordered: 10/13/2024 [facility] Comment on above: Ordered: 10/13/2024 CBC W Auto Different ial panel - Blood CBC and differential Lab Routine Irregular menstrual cycle Ordered: 08/18/2024 [facility] Comment on above: Ordered: 08/18/2024 CBC W Auto Different ial panel - Blood CBC and differential Lab Routine Missed menses , unspecified gestational age ([facility]) Ordered: 10/13/2024 [facility] Comment on above: Ordered: 10/13/2024 CHLAMYDIA TRACHOMATI S (GENITO/STI) CHLAMYDIA TRACHOMATIS (GENITO/STI) Lab Routine Exposure to STD Ordered: 12/12/2024 [facility] Comment on above: Ordered: 12/12/2024 Cytology Cervical or vaginal smear or scraping study Pap Smear Pathology and Cytology Routine Well woman exam with routine gynecological exam Ordered: 08/18/2024 [facility] Work Phone: Comment on above: Ordered: 08/18/2024 DHEA-sulfate DHEA-sulfate Lab Routine Irregular menstrual cycle Ordered: 08/18/2024 [facility] Comment on above: Ordered: 08/18/2024 Follicle stimulating hormone Follicle stimulating hormone Lab Routine Irregular menstrual cycle Ordered: 08/18/2024 [facility] Comment on above: Ordered: 08/18/2024 hCG, quantitative, hCG, quantitative, Lab Routine Irregular menstrual cycle Ordered: 08/18/2024 [facility] Comment on above: Ordered: 08/18/2024 Hemoglobin A1c/Hemoglobin.total in Blood Hemoglobin A1c Lab Routine Irregular menstrual cycle Ordered: 08/18/2024 [facility] Comment on above: Ordered: 08/18/2024 Hemoglobin A1c/Hemoglobin.total in Blood Hemoglobin A1c Lab Routine Missed menses , unspecified gestational age ([facility]) Ordered: 10/13/2024 [facility] Comment on above: Ordered: 10/13/2024 Hepatitis B virus surface Ag [Presence] in Serum or Plasma by Immunoassay Hepatitis B surface antigen Lab Routine Missed menses , unspecified gestational age ([facility]) Ordered: 10/13/2024 [facility] Comment on above: Ordered: 10/13/2024 Hepatitis C virus Ab [Presence] in Serum or Plasma by Immunoassay Hepatitis C antibody Lab Routine Missed menses , unspecified gestational age ([facility]) Ordered: 10/13/2024 [facility] Comment on above: Ordered: 10/13/2024 HIV-1/HIV-2 antigen/antibody combination immunoassay HIV-1 and HIV-2 antibodies Lab Routine Missed menses , unspecified gestational age ([facility]) Ordered: 10/13/2024 [facility] Comment on above: Ordered: 10/13/2024 Luteinizing hormone Luteinizing hormone Lab Routine Irregular menstrual cycle Ordered: 08/18/2024 [facility] Comment on above: Ordered: 08/18/2024 Neisseria gonorrhoea e DNA [Presence] in Unspecified specimen by SHANTHI with probe detection Neisseria gonorrhea DNA probe, direct Lab Routine Exposure to STD Ordered: 12/12/2024 [facility] Comment on above: Ordered: 12/12/2024 Progesterone Progesterone Lab Routine Irregular menstrual cycle Ordered: 08/18/2024 [facility] Comment on above: Ordered: 08/18/2024 Reagin Ab [Presence] in Serum by RPR RPR Lab Routine Missed menses , unspecified gestational age ([facility]) Ordered: 10/13/2024 [facility] Comment on above: Ordered: 10/13/2024 Rubella antibody, IgG Rubella an tibody, IgG Lab Routine Missed menses , unspecified gestational age ([facility]) Ordered: 10/13/2024 [facility] Comment on above: Ordered: 10/13/2024 SURESWAB(R) ADVANCED VAGINITIS PLUS, TMA SURESWAB(R) ADVANCED VAGINITIS PLUS, TMA Pathology and Cytology Routine Exposure to STD Vaginal discharge Ordered: 12/12/2024 [facility] Work Phone: Comment on above: Ordered: 12/12/2024 Thyrotropin [Units/volume] in Serum or Plasma TSH Lab Routine Irregular menstrual cycle Ordered: 08/18/2024 [facility] Comment on above: Ordered: 08/18/2024 Thyroxine (T4) free [Mass/volume] in Serum or Plasma T4, free Lab Routine Irregular menstrual cycle Ordered: 08/18/2024 [facility] Comment on above: Ordered: 08/18/2024 Payers Date Payer Category Payer Private Health Insurance [employer] [id number] 2019 Unknown [id number] 2000 Unknown [id number] 2000 Unknown [id number] 1259 2000 Unknown [id number] 1259 2000 Unknown [id number] 1259 2000 Unknown [id number] 1259 2000 Unknown [id number] 1259 1959 Self-pay Unknown [id number] 593 Unknown [id number] 593 Unknown [id number] 593 Social History Date Type Detail Facility Tobacco smoking stat [facility] Tobacco smoking consumption unknown [facility] Start: 2000 Sex assigned at Not [facility] file [facility] Gender identity Not [facility] file [facility] Start: 08-26-2024 [facility] Go[facility] Date Patient Goal Desired Activity /State Personal health goal History of Present illness Narrative 01-10-2025 SHEILA Mcknight - 01/10/2025 11:00 AM EDT Note Date & Type Note Facility 01-10-2025 History of Presen t illness Narrative Reason for Appointment: Patient ID: Darien Jimenez is a 24 y.o. female who presents for Routine Visit Patient presents today for Return OB appointment. MEDICATIONS Current Outpatient Medications Medication Instructions docusate sodium (COLACE) 100 mg, Oral, 2 times daily PRN Famotidine (PEPCID PO) 1 tablet, Daily in the morning pantoprazole (PROTONIX) 40 mg, Oral, Daily before breakfast, Do not crush, chew, or split. Vit-Fe Fumarate-FA ( Vitamins) 28-0.8 MG tablet 1 tablet, Oral, Daily ALLERGIES No Known Allergies PROBLEMS Active Ambulatory Problems Diagnosis Date Noted Mittelschmerz 08/18/2024 Irregular menstrual cycle 08/18/2024 Well woman exam with routine gynecological exam 08/18/2024 Impetigo 12/20/2024 Resolved Ambulatory Problems Diagnosis Date Noted No [...] Gastrointestinal: Negative. Genitourinary: Negative. Musculoskeletal: Negative. Skin: Positive for rash. Neurological: Negative. All other systems reviewed and are negative. Hematological: Negative. Endocrine: Negative. Allergic/Immunologic: Negative. OBJECTIVE Objective: Physical Exam Constitutional: Appearance: Normal appearance. She is normal weight. HENT: Head: Normocephalic. Ears: Comments: Pruitic, rash with seeping discharge to bilat ear lobes Nose: Nose normal. Cardiovascular: Rate and Rhythm: Normal rate. Pulses: [...] reviewed. Vitals: Estimated body mass index is 29.15 kg/m as calculated from the following: Height as of 08/18/24: 5' 4 . Weight as of this encounter: 169 lb 12.8 oz. BP: 112/74 Patient's last menstrual period was 08/04/2024. ASSESSMENT & PLAN ICD-10-CM 1. 21 weeks gestation of ([facility]) Z3A.21 Urine dip 2. Second trimester ([facility]) Z34.92 Urine dip Return OB: Patient presents today for a routine obstetrics appointment. Patient is currently 21w4d . Patient states she is doing well but has complaints of being tired due to current . Patient has verbalizes frequent movement. Orders Placed This Encounter Procedures Urine dip Patient continues to have rash to earlobes and lips, yellow crusting, pruitic. Treated previously with muporcin and clindamycin without relief. Cultures obtained today, we will send acyclovir. Pt will be referred to derm for follow up Follow Up: Patient is to return to office in 4 week for routine OB appointment. Documented by SHEILA Mcknight on behalf of: SHEILA Mcknight documented in this encounter [facility] History of Present illness Narrative 12-12-2024 Rahel [...] nursing note reviewed. Exam conducted with a multiple wire sawyer present. Vitals: Estimated body mass index is 28.46 kg/m as calculated from the following: Height as of 08/18/24: 5' 4 . Weight as of this encounter: 165 lb 12.8 oz. BP: 112/72 Patient's last menstrual period was 08/04/2024. ASSESSMENT & PLAN ICD-10-CM 1. 17 weeks gestation of ([facility]) Z3A.17 POCT urinalysis dipstick manually resulted Alpha fetoprotein, maternal Alpha fetoprotein, maternal 2. Second trimester ([facility]) Z34.92 POCT urinalysis dipstick manually resulted Alpha fetoprotein, maternal Alpha fetoprotein, maternal 3. Screening, , for anatomic survey ([facility]) Z36.89 US OB 14+ weeks anatomy scan [...] PLAN ICD-10-CM 1. 12 weeks gestation of ([facility]) Z3A.12 POCT urinalysis dipstick manually resulted 2. First trimester ([facility]) Z34.91 POCT urinalysis dipstick manually resulted Return [...] supervision of normal first in first trimester ([facility]) - Rapid drug screen, urine; Future Nurse Note: Patient desires to have Borden billion to one. Pt was advised to make sure to have both Borden and labs done together at 9 weeks. Pt is currently 8 weeks 6 days today. Pt desires NOT to know the Gender and the box was checked on the [employer] order. OB Intake: Patient presents today for first OB visit. Patients history has been reviewed in great detail including any potential risks. Patient signed consent forms and patient desires testing in both trimesters. Patient currently has no complaints and has been advised to drink 6-8 glasses of water a day, eat no raw or undercooked meat, and [facility]. Patient has also been advised to [...] PROBLEMS Active Ambulatory Problems Diagnosis Date Noted Mjmerz 08/18/2024 Irregular menstrual cycle 08/18/2024 Well woman [...] nursing note reviewed. Exam conducted with a multiple wire sawyer present. Vitals: Estimated body mass index is [...] menstruation Missed menses , unspecified gestational age ([facility]) Encounter for supervision of normal first in first trimester ([facility]) documented in this encounter [facility] Evaluation note Note Date & Type Note Facility Evaluation note Diagnosis 12 weeks gestation of ([facility]) First trimester ([facility]) state, incidental documented in this encounter [facility] Evaluation note Note Date & Type Note Facility Evaluation note Diagnosis 17 weeks gestation of ([facility]) Second trimester ([facility]) state, incidental Screening, , for anatomic survey ([facility]) Encounter for anatomic survey Exposure to STD Vaginal discharge Leukorrhea, not specified as infective Heartburn during in second trimester ([facility]) documented in this encounter [facility] Evaluation note Note Date & Type Note Facility Evaluation note Diagnosis 21 weeks gestation of ([facility]) Second trimester ([facility]) state, incidental documented in this encounter [facility] Summary Purpose Family History No Family History Records FoundNo Family History Records FoundNo Family History Records Found Advance Directives No Advanced Directives Records FoundNo Advanced Directives Records FoundNo Advanced Directives Records Found Additional Source Comments INFORMATION SOURCE (unrecogn ized section and content) DATE CREATED AUTHOR 09/13/2019 [facility] DATE CREATED AUTHOR AUTHOR'S ORGANIZ ATION 05/09/2021 [facility] DATE CREATED AUTHOR AUTHOR'S ORGANIZ ATION 12/13/2024 [facility] EPIC Reason for [...] BE BASED ON THE PRIMARY CLINICAL RECORDS. [facility]. provides no warranty or guarantee of the accuracy or completeness of information in this document.
== END 2025-01-10 20:47 | disposition home or self-care (01) ==
LOC: LAB 20:46
PROVIDERS: PCP Family Medicine; Visit Provider Physician Assistant
DX: R21 Rash and other nonspecific skin eruption (principal)
CPT/HCPCS: 87070; 87075; 87077; 87186

== ENCOUNTER 2025-01-31 13:36 | Outpatient (OUT) | payer OTHER, SELFPAY ==
--- OUTSIDE RECORDS SUMMARY | 2025-01-31 13:42 | XMS_ITS | CCD ---
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 [facility] Eosinophils/100 WBC (Bld) 2 % 0.9 - 7.0 % [facility] Erythrocyte distribution width (RBC) [Ratio] 12.4 % 11.0 - 15.0 % [facility] Hematocrit (Bld) [Volume fraction] 38.9 % 36.0 - 48.0 % [facility] Hemoglobin (Bld) [Mass/Vol] 13.9 g/dL 12.0 - 16.0 g/dL [facility] IMMATURE GRANULOCYTES ABS AUTO 0.02 [facility] Immature granulocytes/100 WBC (Bld) 0.3 % 0.0 - 0.5 % [facility] Interpretation and review of laboratory results Abnormal [facility] LYMPHOCYTES ABSOLUTE AUTO 1.9 [facility] Lymphocytes/100 WBC (Bld) 27.8 % 20.5 - 60.0 % [facility] MCH (RBC) [Entitic mass] 30.7 pg 26.7 - 34.0 pg [facility] MCHC (RBC) [Mass/Vol] 35.7 g/dL High 29.9 - 35.2 g/dL [facility] MCV (RBC) [Entitic vol] 85.9 fL 81.0 - 99.0 fL [facility] MONOCYTES ABSOLUTE AUTO 0.4 [facility] Monocytes/100 WBC (Bld) 5.4 % 1.7 - 12.0 % [facility] NEUTROPHILS ABSOLUTE AUTO 4.3 [facility] Neutrophils/100 WBC (Bld) 64.2 % 43.0 - 75.0 % [facility] Platelet mean volume (Bld) [Entitic vol] 9 fL Low 9.5 - 13.5 fL [facility] EO # 0.1 [facility] PLT 226 [facility] RBC 4.53 [facility] WBC 6.7 [facility] BOX TESTon 10-14-2024 BOX TEST SENT OUT [facility] BOX1 [facility] BOX2 10/14/24 [facility] HCG ( test) Ql (U)o n 10-13-2024 Interpretation and review of laboratory results Abnormal [facility] Preg Test, Ur Positive Negative [facility] US OB TRANSVAGINALon 025 US OB TRANSVAGINAL [...] II, MD, PHD at 16-Oct-2024 08:55:44 AM [facility] [employer] Normal Not Available Comment on above: Order Comment: US OB TRANSVAGINAL No LMP recorded. Urinalysis macro (dipstick) panel (U)on 10-13-2024 Bilirubin, UA Negative Negative - 4(70) +++ mg/dL [facility] Blood, UA Positive Negative - 50 Iam/mcL [facility] Comment on above: trace Clarity, UA Clear [facility] Color, UA Yellow [facility] Glucose, UA Negative Negative - 2000(110) ++++ mg/dL [facility] Ketones, UA Negative Negative - 160(16) ++++ mg/dL [facility] Leukocytes, UA Positive Negative - 500+++ Zakia/mcL [facility] Comment on above: small Nitrite, UA Negative Negative - Positive [facility] pH, UA 6.5 5 - 9 [facility] Protein, UA Negative Negative - 2000(20) ++++ mg/dL [facility] Spec Grav, UA 1.02 1 - 1.03 [facility] Urobilinogen, UA 0.2 0.2 - 12 mg/dL [facility] PREG QUANT HCGon 09-12- 025 HCG QUANTITATIVE 230 mIU/mL [facility] Comment on above: 5-50 0.2-1 WEEK 50-500 1-2 WEEKS 100-5,000 2-3 WEEKS 500-10,000 3-4 WEEKS 1,000-50,000 4-5 WEEKS 10,000-100,000 5-6 WEEKS 15,000-200,000 6-8 WEEKS 10,000-100,000 2-3 MONTHS [facility] IGP,APTIMA HPV,AGE GDLNon AGE GDLN ACOG TESTING Note . [facility] Comment on above: TESTS RESULT FLAG UN ITS REF RANGE LAB Clinician Provided Cytology Information Source.............Cervix;Endocervix No. of containers..01 ThinPrep Vial Age Algo ACOG Cheli... FLAG LEGEND: L-Low Normal,H-High Normal,LL-Alert Low,HH-Alert High <-Panic Low,>-Panic High,A-Abnormal,AA-Critical Abnormal Performed at: 01 =G [facility] [address] Bebe Pleitez MD, IGP, RFX APTIMA HPV ASCU Note . [facility] Comment on above: TESTS RESULT FLAG UN ITS REF RANGE LAB DIAGNOSIS: 02 NEGATIVE FOR INTRAEPITHELIAL LESION OR MALIGNANCY. Specimen adequacy: 02 Satisfactory for evaluation. Endocervical and/or squamous metaplastic cells (endocervical component) are present. Performed by: Kevin Loya Cylinder Devalver ([facility]) . 02 Note: Note 02 [...] <-Panic Low,>-Panic High,A-Abnormal,AA-Critical Abnormal Performed at: [address] [id number] Bebe Pleitez MD, Performed at: = - [facility] [id number] Geophysicist: Bebe Pleitez MD, Phone: [phone] Performed at: - [facility] [id number] Geophysicist: Bebe Pleitez MD, Phone: [phone] BRUSH-SPATULA CERVIX ENDOCERVIX [facility] Covid-19 PCR ([facility])on 03-27 SARS-CoV-2 (COVID-19) RNA SHANTHI+probe Ql (Unsp spec) Not detected Normal NOT DETECTED [facility] Comment on above: Result Comment: This test is not yet approved or cleared by the [place] FDA. When there are no FDA-approved or cleared tests available, and other criteria are met, FDA can make tests available under an emergency access mechanism called an Emergency Use Authorization (EUA). The EUA for this test is supported by the Wolf of Health and Human Service's (HHS's) declaration [...] SARS-CoV-2. Performed By: #### C VDTB #### [facility] [address] [address] [address] Chitra Pineda OBSOLETEon 09-12-2019 OBSOLETE Refill ([facility]) DARIEN JIMENEZ ([id number]) 1 F Date Time Provider Department 09/12/19 DOUG OLVERA During your visit today, we recorded the following information about you: Allergies As of Date: 09/12/2019 (No Known Allergies) Date Reviewed: 06/23/2019 Reviewed by: Swathi Keyes - Fully Assessed Reason for Visit: Refill Request [94] Order(s):cyanocobalam in (VITAMIN B-12) 1,000 mcg/mLInject 1 mL intramuscularly [...] Status:Closed by DOUG OLVERA MD on 09/13/19 [facility] CNOVSPon 06-23-2019 CNOVSP Visit (SP) Office ([place]) DARIEN JIMENEZ ([id number]) 1 F Date Time Provider Department 06/23/19 4:00 PM DOUG OLVERA During your visit today, we recorded the following information about you: Temperature Pulse Respiration Blood pressure 98.6 degrees 78/minute 18/minute 125/71 Weight Height 62.6 kg 1.61 m Swathi Wali 06/23/2019 4:00 PM Signed Patient states still [...] 23, 2019: Alf returns with her father Calixto to review findings and have noted that [...] accompanied by her mother Arnav and father Calixto. She is a history of heavy menstrual [...] Take 100 mg by mouth twice daily. levonorgestrel-ethiny l estradiol (LEVORA 0.15/30, 28,) 0.15-0.03 mg per [...] Doug Olvera MD CC: Steffany Rodriguez MD [facility] [phone] Referring Provider: DOUG OLVERA [[id number]] Allergies As of Date: 06/23/2019 (No Known Allergies) Date Reviewed: 06/23/2019 Reviewed by: Swathi Keyes - Fully Assessed Reason for Visit: Anemia [6] Cmt: follow up lab Primary Visit Diagnosis:Iron deficiency anemia due to chronic blood loss [D50.0] Other Visit Diagnosis:Vitamin B12 deficiency anemia due to intrinsic factor deficiency [D51.0] Order(s):cyanocobalam in (VITAMIN B-12) 1,000 mcg/mL solnInject 1 mL [...] [R19.5] 05/05/2019 Visit Notes: >> July Keyes WedJun 23, 2019 3:58 PM Status: Signed Patient states still having bouts of fatigue and SOB when exercising. Encounter Status:Closed by DOUG OLVERA MD on 06/23/19 [facility] PROGRESSon 06-23-2019 PROGRESS HNO ID: [id number] Author: Doug Olvera Service: ? Author Type: [...] 23, 2019: Alf returns with her father Calixto to review findings and have noted that [...] accompanied by her mother Arnav and father Calixto. She is a history of heavy menstrual [...] Take 100 mg by mouth twice daily. levonorgestrel-ethiny l estradiol (LEVORA 0.15/30, 28,) 0.15-0.03 mg per [...] Doug Olvera MD CC: Steffany Rodriguez MD [address] [place] [phone] Normal [facility] CNOVSPon 05-24-2019 CNOVSP Visit (SP) Office ([place]) DARIEN JIMENEZ ([id number]) 1 F Date Time Provider Department 05/24/19 [...] results of GI workup and biopsies from [place]. Doug Olvera MD CC: severe Iron deficiency anemia HPI: Darien Jimenez presents today at the request of Dr. Rodriguez for oncology evaluation. She is a 19 year old female who presents accompanied by her mother Arnav and father Calixto. She is a history of heavy menstrual [...] edema. PULM: No unexplained cough. GI: No dysphagia/odynophagia , problematic reflux, constipation, diarrhea, changes in stool habits, hematochezia, melena. : No new urinary complaints, including dysuria, gross hematuria or pyuria. NEURO: No new balance problems, peripheral weakness/paresthesias or numbness of concern. MUSC-SKEL: No new joint pain, swelling, or erythema. PSY: No concerns regarding depression, anxiety or panic. INTEGUMENTARY: No new skin changes (rash, new or changing mole, new growth) HEMATOLOGIC/LYMPHATIC /IMMUNOLOGIC:Negative for prolonged bleeding, bruising easily or swollen nodes MEDICATIONS: levonorgestrel-ethiny l estradiol (LEVORA 0.15/30, 28,) 0.15-0.03 mg per [...] FOLATE SERUM CC: SELF Steffany Rodriguez MD [address] [place] [phone] Doug Olvera MD Referring Provider: SELF [200] Allergies As of Date: 05/24/2019 (No Known Allergies) Date Reviewed: 05/24/2019 Reviewed by: Tawny Westbrook - Fully Assessed Reason for Visit: Anemia [6] Cmt: new patient consult Primary Visit Diagnosis:Iron deficiency anemia due to chronic blood loss [D50.0] Order(s):CBC + DIFF (FOR REMOTE [facility] USE) [SQRCBCDF] Order #: [id number] FUTURE COMP METABOLIC PANEL [SQCMP] Order #: [id number] FUTURE IRON + TIBC [SQIRON] Order #: [id number] FUTURE FERRITIN BLD [SQFERR] Order #: [id number] FUTURE RETIC COUNT [SQRETIC] Order #: [id number] FUTURE VITAMIN B12 BLOOD [SQB12] Order #: [id number] FUTURE FOLATE SERUM [SQSERFOL] Order #: [id number] FUTURE Disposition: Return in about 4 weeks [...] by DOUG OLVERA MD on 05/25/19 Normal [facility] PROGRESSon 05-24-2019 PROGRESS HNO ID: [id number] Author: Doug Olvera Service: ? Author Type: [...] results of GI workup and biopsies from [place]. Doug Olvera MD CC: severe Iron deficiency anemia HPI: Darien Jimenez presents today at the request of Dr. Rodriguez for oncology evaluation. She is a 19 year old female who presents accompanied by her mother Arnav and father Calixto. She is a history of heavy menstrual [...] edema. PULM: No unexplained cough. GI: No dysphagia/odynophagia , problematic reflux, constipation, diarrhea, changes in stool habits, hematochezia, melena. : No new urinary complaints, including dysuria, gross hematuria or pyuria. NEURO: No new balance problems, peripheral weakness/paresthesias or numbness of concern. MUSC-SKEL: No new joint pain, swelling, or erythema. PSY: No concerns regarding depression, anxiety or panic. INTEGUMENTARY: No new skin changes (rash, new or changing mole, new growth) HEMATOLOGIC/LYMPHATIC /IMMUNOLOGIC:Negative for prolonged bleeding, bruising easily or swollen nodes MEDICATIONS: levonorgestrel-ethiny l estradiol (LEVORA 0.15/30, 28,) 0.15-0.03 mg per [...] diagnosis) Plan: CBC + DIFF (FOR REMOTE [facility] USE), COMP METABOLIC PANEL, IRON + TIBC, FERRITIN BLD, RETIC COUNT, VITAMIN B12 BLOOD, FOLATE SERUM CC: SELF Steffany Rodriguez MD [facility] [phone] Doug Olvera MD Normal [facility] Vital Signs Date Time Vital Sign Value Performing Clinician Margaritai prashant 01-10-2025 10:51-0400 Body mass index (BMI) [Ratio] 29.15 kg/m2 Judith SOSA Work Phone: [facility] 01-10-2025 10:51-0400 Body weight 77.02 kg Judith SOSA Work Phone: [facility] 01-10-2025 10:51-0400 Diastolic blood pressure 74 mm[Hg] Judith SOSA Work Phone: [facility] 01-10-2025 10:51-0400 Systolic blood pressure 112 mm[Hg] Judith SOSA Work Phone: [facility] 12-12-2024 09:31-0400 Body mass index (BMI) [Ratio] 28.46 kg/m2 Luis Fernando Tari DO Work Phone: [facility] 12-12-2024 09:31-0400 Body weight 75.21 kg Luis Fernando Tari DO Work Phone: [facility] 12-12-2024 09:31-0400 Diastolic blood pressure 72 mm[Hg] Luis Fernando Tari DO Work Phone: [facility] 12-12-2024 09:31-0400 Systolic blood pressure 112 mm[Hg] Luis Fernando Tari DO Work Phone: [facility] 11-09-2024 09:08-0400 Body mass index (BMI) [Ratio] 27.31 kg/m2 Luis Fernando Tari DO Work Phone: [facility] 11-09-2024 09:08-0400 Body weight 72.18 kg Luis Fernando Tari DO Work Phone: [facility] 11-09-2024 09:08-0400 Diastolic blood pressure 70 mm[Hg] Luis Fernando Tari DO Work Phone: [facility] 11-09-2024 09:08-0400 Systolic blood pressure 110 mm[Hg] Luis Fernando Tari DO Work Phone: [facility] 10-13-2024 09:26-0400 Body mass index (BMI) [Ratio] 27.64 kg/m2 Tari Ob [facility] 10-13-2024 09:26-0400 Body weight 73.03 kg Tari Ob [facility] 10-13-2024 09:26-0400 Diastolic blood pressure 72 mm[Hg] Tari Ob [facility] 10-13-2024 09:26-0400 Systolic blood pressure 118 mm[Hg] Tari Ob [facility] 08-18-2024 10:59-0400 Body height 162.6 cm Luis Fernando Tari DO Work Phone: [facility] 08-18-2024 10:59-0400 Body mass index (BMI) [Ratio] 27.12 kg/m2 Luis Fernando Tari DO Work Phone: [facility] 08-18-2024 10:59-0400 Body weight 71.67 kg Luis Fernando Tari DO Work Phone: [facility] 08-18-2024 10:59-0400 Diastolic blood pressure 70 mm[Hg] Luis Fernando Tari DO Work Phone: [facility] 08-18-2024 10:59-0400 Systolic blood pressure 118 mm[Hg] Luis Fernando Tari DO Work Phone: [facility] Encounters Encounter Date Encounter Type Care Provider Facility Start: 01-28-2025 End: 01-28-2025 ambulatory DOCTOR NO PCP Facility:[id number] Start: 01-28-2025 End: 01-28-2025 Extended Recovery CARMELO SWANN MD [facility] Start: 01-10-2025 End: 01-10-2025 flow sheet Judith SOSA Work Phone: [facility] Comment on above: 21 weeks gestation o f ([facility]); Second trimester ([facility]) Start: 01-10-2025 End: 01-10-2025 ambulatory JUDITH DAVIS Not Available Start: 12-12-2024 End: 12-12-2024 Bamboo flowsheet Luis Fernando Tari DO Work Phone: [facility] Start: 12-12-2024 End: 12-14-2024 Bamboo flowsheet Luis Fernando Tari DO Work Phone: [facility] Start: 12-12-2024 End: 12-14-2024 Clinisync Result Encounter Luis Fernando Tari DO Work Phone: [facility] Unsolicited Start: 12-12-2024 End: 12-13-2024 External Result Encounter Luis Fernando Tari DO Work Phone: [facility]olic[facility] Start: 12-12-2024 End: 12-12-2024 flow sheet Luis Fernando Tari DO Work Phone: [facility] Comment on above: 17 weeks gestation o f ([facility]); Second trimester ([facility]); Screening, , for anatomic survey ([facility]); Exposure to STD; Vaginal discharge; Heartburn during in second trimester ([facility]) Start: 12-12-2024 End: 12-12-2024 ambulatory LUIS [...] on above: 12 weeks gestation o f ([facility]); First trimester ([facility]) Start: 11-09-2024 End: 11-09-2024 ambulatory LUIS [...] Date Procedure Procedure Detail Performing Clinician Start: 01-28-2025 nonstress test KRISH SWANN MD Start: 01-28-2025 Collection venous bl ood venipuncture CARMELO SWANN MD Start: 01-28-2025 End: 01-28-2025 Collection venous blood venipuncture CARMELO SWANN MD Start: 01-10-2025 Urnls dip stick/tabl et rgnt [...] 02/08/2025 9:00 AM EDT Routine [facility] [address] [place] [address] Luis Fernando Marc, DO [address] [place] [place] [address] [facility] Start: 01-10-2025 End: 01-10-2025 Patient encounter procedure 01/10/2025 11:00 AM EDT Routine [facility] [address] [place] [phone] Judith Davis PA [address] [place] [address] [facility] Start: 01-10-2025 End: 01-10-2025 Professional / ancillary services management 01/10/2025 10:00 AM EDT Ancillary Procedure [facility] [address] [place] [phone] [facility] Start: 12-12-2024 End: 02-11-2025 Alpha fetoprotein, maternal Alpha fetoprotein, maternal Lab Routine 17 weeks gestation of ([facility]) Second trimester ([facility]) Expected: 12/12/2024 (Approximate), Expires: 02/11/2025 [facility] Comment on above: Expected: 12/12/2024 (Approximate), Expires: 02/11/2025 Start: 12-12-2024 End: 03-14-2025 US for US OB 14+ weeks anatomy scan Imaging Routine Screening, , for anatomic survey ([facility]) Expected: 12/12/2024, Expires: 03/14/2025 [facility] Comment on above: Expected: 12/12/2024 , Expires: 03/14/2025 Start: 12-12-2024 End: 12-12-2024 Patient encounter procedure 12/12/2024 9:20 AM EDT Routine [facility] [address] [place] [phone] Luis Fernando Marc DO [address] [place] [address] Arrived [facility] Comment on above: Arrived Start: 12-11-2024 End: 12-11-2024 Patient encounter procedure 12/11/2024 9:20 AM EDT Routine [facility] [address] [place] [phone] Luis Fernando Marc DO [address] [place] [address] [facility] Start: 11-09-2024 End: 11-09-2024 Patient encounter procedure [facility] Comment on above: Arrived Start: 10-13-2024 End: 10-13-2025 ABO/Rh ABO/Rh Lab Routine Missed menses , unspecified gestational age ([facility]) Expected: 10/13/2024 (Approximate), Expires: 10/13/2025 [facility] Comment on above: Expected: 10/13/2024 (Approximate), Expires: 10/13/2025 Start: 10-13-2024 End: 10-13-2025 Blood type and Indirect antibody screen panel - Blood Type and screen Lab Routine Missed menses , unspecified gestational age ([facility]) Expected: 10/13/2024 (Approximate), Expires: 10/13/2025 [facility] Work Phone: Comment on above: Expected: 10/13/2024 (Approximate), Expires: 10/13/2025 Start: 10-13-2024 End: 10-13-2025 Drugs of abuse panel - Urine by Screen method Rapid drug screen, urine Lab Routine , unspecified gestational age ([facility]) Encounter for supervision of normal first in first trimester ([facility]) Expected: 10/13/2024 (Approximate), Expires: 10/13/2025 [facility] Comment on above: Expected: 10/13/2024 (Approximate), Expires: 10/13/2025 Start: 09-14-2024 End: 09-14-2024 Professional / ancillary services management 09/14/2024 11:00 AM EDT Ancillary Procedure [facility] [address] [facility] [facility] [place] [phone] [facility] Start: 08-18-2024 End: 08-18-2025 [...] Irregular menstrual cycle Expected: 08/18/2024, Expires: 08/18/2025 [facility] Comment on above: Expected: 08/18/2024 , Expires: 08/18/2025 Start: 08-18-2024 End: 08-18-2024 Patient encounter procedure 08/18/2024 11:00 AM EDT Procedure Visit [facility] OB [address] [place] [phone] Luis Fernando Marc DO [address] [place] Sán[place] [id number] [address] [facility] Comment on above: Arrived Bacteria identified in Urine by Culture Urine culture Microbiology Routine Missed menses Ordered: 10/13/2024 [facility] Comment on above: Ordered: 10/13/2024 CBC W Auto Different ial panel - Blood CBC and differential Lab Routine Irregular menstrual cycle Ordered: 08/18/2024 [facility] Comment on above: Ordered: 08/18/2024 CBC W Auto Different ial panel - Blood CBC and differential Lab Routine Missed menses , unspecified gestational age ([facility]) Ordered: 10/13/2024 [facility] Comment on above: Ordered: 10/13/2024 CHLAMYDIA TRACHOMATI S (GENITO/STI) CHLAMYDIA TRACHOMATIS (GENITO/STI) Lab Routine Exposure to STD Ordered: 12/12/2024 [facility] Comment on above: Ordered: 12/12/2024 Cytology Cervical or vaginal smear or scraping study Pap Smear Pathology and Cytology Routine Well woman exam with routine gynecological exam Ordered: 08/18/2024 [facility] Work Phone: Comment on above: Ordered: 08/18/2024 DHEA-sulfate DHEA-sulfate Lab Routine Irregular menstrual cycle Ordered: 08/18/2024 [facility] Comment on above: Ordered: 08/18/2024 Follicle stimulating hormone Follicle stimulating hormone Lab Routine Irregular menstrual cycle Ordered: 08/18/2024 [facility] Comment on above: Ordered: 08/18/2024 hCG, quantitative, hCG, quantitative, Lab Routine Irregular menstrual cycle Ordered: 08/18/2024 [facility] Comment on above: Ordered: 08/18/2024 Hemoglobin A1c/Hemoglobin.total in Blood Hemoglobin A1c Lab Routine Irregular menstrual cycle Ordered: 08/18/2024 [facility] Comment on above: Ordered: 08/18/2024 Hemoglobin A1c/Hemoglobin.total in Blood Hemoglobin A1c Lab Routine Missed menses , unspecified gestational age ([facility]) Ordered: 10/13/2024 [facility] Comment on above: Ordered: 10/13/2024 Hepatitis B virus surface Ag [Presence] in Serum or Plasma by Immunoassay Hepatitis B surface antigen Lab Routine Missed menses , unspecified gestational age ([facility]) Ordered: 10/13/2024 [facility] Comment on above: Ordered: 10/13/2024 Hepatitis C virus Ab [Presence] in Serum or Plasma by Immunoassay Hepatitis C antibody Lab Routine Missed menses , unspecified gestational age ([facility]) Ordered: 10/13/2024 [facility] Comment on above: Ordered: 10/13/2024 HIV-1/HIV-2 antigen/antibody combination immunoassay HIV-1 and HIV-2 antibodies Lab Routine Missed menses , unspecified gestational age ([facility]) Ordered: 10/13/2024 [facility] Comment on above: Ordered: 10/13/2024 Luteinizing hormone Luteinizing hormone Lab Routine Irregular menstrual cycle Ordered: 08/18/2024 [facility] Comment on above: Ordered: 08/18/2024 Neisseria gonorrhoea e DNA [Presence] in Unspecified specimen by SHANTHI with probe detection Neisseria gonorrhea DNA probe, direct Lab Routine Exposure to STD Ordered: 12/12/2024 [facility] Comment on above: Ordered: 12/12/2024 Progesterone Progesterone Lab Routine Irregular menstrual cycle Ordered: 08/18/2024 [facility] Comment on above: Ordered: 08/18/2024 Reagin Ab [Presence] in Serum by RPR RPR Lab Routine Missed menses , unspecified gestational age ([facility]) Ordered: 10/13/2024 [facility] Comment on above: Ordered: 10/13/2024 Rubella antibody, IgG Rubella an tibody, IgG Lab Routine Missed menses , unspecified gestational age ([facility]) Ordered: 10/13/2024 [facility] Comment on above: Ordered: 10/13/2024 SURESWAB(R) ADVANCED VAGINITIS PLUS, TMA SURESWAB(R) ADVANCED VAGINITIS PLUS, TMA Pathology and Cytology Routine Exposure to STD Vaginal discharge Ordered: 12/12/2024 [facility] Work Phone: Comment on above: Ordered: 12/12/2024 Thyrotropin [Units/volume] in Serum or Plasma TSH Lab Routine Irregular menstrual cycle Ordered: 08/18/2024 [facility] Comment on above: Ordered: 08/18/2024 Thyroxine (T4) free [Mass/volume] in Serum or Plasma T4, free Lab Routine Irregular menstrual cycle Ordered: 08/18/2024 [facility] Comment on above: Ordered: 08/18/2024 [facility] Payers Date Payer Category Payer Private Health Insurance [employer] [id number] 2019 Unknown [id number] 2008 Unknown 2000 Unknown [id number]. 593 2000 Unknown [id number] [id number]. 1259 2000 Unknown [id number] [id number]. 1259 2000 Unknown [id number] 2.16.840.1.900024.3.579.2. 1259 2000 Unknown [id number] 2.16.840.1.972218.3.579.2. 1259 2000 Unknown [id number] 2.16.840.1.483260.3.579.2. 1259 2000 Unknown [id number] 2.16.840.1.298970.3.579.2. 1259 2000 Unknown [id number] 2.16.840.1.407940.3.579.2. 1259 2000 Unknown [id number] 2.16.840.1.000075.3.579.2. 159 1959 Self-pay Unknown [id number] [id number]. 593 Unknown [id number] 2.16.840.1.033967.3.579.2. 593 Unknown [id number] [id number]. 593 Unknown Social History Date Type Detail Facility Tobacco smoking status [facility] Tobacco smoking consumption unknown [facility] Start: 2000 Sex assigned at [facility] Gender identity [facility] Start: 08-26-[facility] Tobacco smoking status [facility] Sex Assigned At Female [facility] Start: 05-23-2019 Sex Female (finding) [facility] Goals Date Patient Goal Desired Activity /State Personal health goal Clinical Notes 08-18-2024 to 01-28-2025 Note Date & Type Note Facility 01-28-2025 Hospital Discharg e instructions Patient Education 01/28/2025 21:59:18 : When to Call (After 20 Weeks): General Info Learning About When to Call Your Doctor During (After 20 Weeks) Overview It's common to have concerns about what might be a problem when you're . Most pregnancies don't have any serious problems. But it's still important to know when to call your doctor if you have certain symptoms or signs of labor. These are general suggestions. Your doctor may give you some more information about when to call. When to call your doctor (after 20 weeks) Call 911 anytime you think you may need emergency care. For example, call if: You have severe vaginal bleeding. You have sudden, severe pain in your belly. You passed out (lost consciousness). You have a seizure. You see or feel the umbilical cord. You think you are about to deliver your baby and can't make it safely to the hospital. Call your doctor now or seek immediate medical care if: You have vaginal bleeding. You have belly pain. You have a fever. You have symptoms of preeclampsia, such as: Sudden swelling of your face, hands, or feet. New vision problems (such as dimness, blurring, or seeing spots). A severe headache. You have a sudden release of fluid from your vagina. (You think your water broke.) You think that you may be in labor. This means that you've had at least 6 contractions in an hour. You notice that your baby has stopped moving or is moving much less than normal. You have symptoms of a urinary tract infection. These may include: Pain or burning when you urinate. A frequent need to urinate without being able to pass much urine. Pain in the flank, which is just below the rib cage and above the waist on either side of the back. Blood in your urine. Watch closely for changes in your health, and be sure to contact your doctor if: You have vaginal discharge that smells bad. You have skin changes, such as: A rash. Itching. Yellow color to your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
--- NOTE | 2025-01-31 13:48 | US_ITS ---
[address] [address] Patient Name: ELEAZAR JIMENEZ MRN: [id number] date: 2000 Sex: F Assigned Patient Location: US Current Patient Location: Accession/Order Number: [id number] Exam Date: 01/31/2025 13:50 Report Date: 02/01/2025 07:56 At the request of: LUIS FERNANDO LEWIS DO Procedure: US OB incomplete anatomy ULTRASOUND OB INCOMPLETE ANATOMY COMPARISON: 01/10/2025 CLINICAL DATA: Follow four-chamber heart There is a single live intrauterine gestation in breech presentation. The reported gestational age is 24 weeks 4 days. The amniotic fluid volume is subjectively normal. There is cardiac and somatic activity with heart rate of 148 bpm. An unremarkable four-chamber heart is visualized. US/US OB incomplete anatomy IMPRESSION: UNREMARKABLE FOUR-CHAMBER HEART. Impression dictated by: Rahel Mims M.D. 02/01/2025 7:56 AM Dictation Location: [place] [address] Electronically authenticated by: [id number] Y Date: 02/01/2025 07:56
== END 2025-01-31 13:37 | disposition home or self-care (01) ==
LOC: US 13:36
PROVIDERS: PCP Family Medicine; Visit Provider Obstetrics & Gynecology
DX: Z36.2 Encounter for other antenatal screening follow-up (principal); Z3A.24 24 weeks gestation of pregnancy
CPT/HCPCS: 76815

== ENCOUNTER 2025-02-08 09:57 | Outpatient (OUT) | payer OTHER, SELFPAY ==
--- OUTSIDE RECORDS SUMMARY | 2025-02-08 09:00 | XMS_ITS | Encounter Summary ---
Author Organization [facility] Address [address] [place] [address] Care Team Providers Care Ehs Teacher Name Role Phone Unavailable Primary Care Provider Unavailabl e Reason for Visit * Reason Comments Routine Visit Encounter Details Date Type Department Care Team (Latest Contact Info) Description 02/08/2025 9:00 AM EDT Routine RAISSA Sánchez OBGYN [address] [facility] [facility] [place] [phone] Eric Marc DO [address] [facility] [address] [place], [place] [address] Diabetes mellitus screening; Second trimester ([facility]); 25 weeks gestation of ([facility]); Size of fetus inconsistent with dates, antepartum ([facility]) Social History Tobacco Use Types Packs/Day Years Used Date Smoking Tobacco: Never Assessed Estimated Date of Delivery Comme nts Yes 05/19/2025 Based on Ultraso und Sex and Gender Information Value Date Recorded Sex Assigned at Not on file Legal Sex Female 7:21 PM EDT Gender Identity Not on file Sexual Orientation Not on file documented as of this encounter Last Filed Vital Signs Vital Sign Reading Time Taken Comments Blood Pressure 120/82 02/08/2025 9:04 AM EDT Pulse - - Temperature - - Respiratory Rate - - Oxygen Saturation - - Inhaled Oxygen Concentration - - Weight 79.9 kg (176 lb 4 oz) 02/08/2025 9:04 AM EDT Height - - Body Mass Index 30.25 08/18/2024 10:59 AM EDT documented in this encounter Progress Notes * Elissa Olvera LPN - 02/08/2025 9:00 AM EDT Reason for Appointment: Patient ID: Darien Yi is a 24 y.o. female who presents for Routine Visit Patient presents today for Return OB appointment. MEDICATIONS Current Outpatient Medications Medication Instructions docosanol cream (Abreva) 10 % cream cream 1 application , Topical, 5 times daily docusate sodium (COLACE) 100 mg, Oral, 2 times daily PRN Famotidine (PEPCID PO) 1 tablet, Daily in the morning methylPREDNISolone (Medrol Dospak) 4 MG tablets Day 1: 6 tablets Day 2: 5 tablets Day 3: 4 tablets Day 4: 3 tablets Day 5: 2 tablets Day 6: 1 tablet pantoprazole (PROTONIX) 40 mg, Oral, Daily before breakfast, Do not crush, chew, or split. Vit-Fe Fumarate-FA ( Vitamins) 28-0.8 MG tablet 1 tablet, Oral, Daily ALLERGIES Allergies[1] PROBLEMS Active Ambulatory Problems Diagnosis Date Noted [place] 08/18/2024 Irregular menstrual cycle 08/18/2024 Well woman exam with routine gynecological exam 08/18/2024 Impetigo 12/20/2024 Resolved Ambulatory Problems Diagnosis Date Noted No Resolved Ambulatory Problems No Additional Past Medical History HISTORY PAST MEDICAL HISTORY SOCIAL HISTORY Medical History[2] Social History Tobacco Use Smoking status: Not on file Smokeless tobacco: Not on file Substance Use Topics Alcohol use: Not on file Drug use: Not on file FAMILY HISTORY Family History[3] SURGICAL HISTORY Surgical History[4] REVIEW OF SYSTEMS Review of Systems: Review of Systems Constitutional: Negative. HENT: Negative. Eyes: Negative. Respiratory: Negative. Cardiovascular: Negative. Gastrointestinal: Negative. Genitourinary: Negative. Musculoskeletal: Negative. Skin: Negative. Neurological: Negative. All other systems reviewed and are negative. Hematological: Negative. Endocrine: Negative. Allergic/Immunologic: Negative. OBJECTIVE Objective: Physical Exam Constitutional: Appearance: Normal appearance. She is well-developed. Cardiovascular: Rate and Rhythm: Normal rate and [...] nursing note reviewed. Exam conducted with a circuit judge present. Vitals: Estimated body mass index is 30.25 kg/m?? as calculated from the following: Height as of 08/18/24: 5' 4 . Weight as of this encounter: 176 lb 4 oz. BP: 120/82 Patient's last menstrual period was 08/04/2024. ASSESSMENT & PLAN ICD-10-CM 1. Diabetes mellitus screening Z13.1 CBC Glucose tolerance, 1 hour CBC Glucose tolerance, 1 hour 2. Second trimester ([facility]) Z34.92 POCT urinalysis dipstick manually resulted 3. 25 weeks gestation of ([facility]) Z3A.25 Patient presents today for a routine obstetrics appointment. Patient is currently 25w5d with a Estimated Date of Delivery: 05/19/25. Patient to return to clinic in 3 weeks for routine OB appointment. Patient given CBC and 1 hour gtt orders. Growth scan will be ordered to have obtained priorto next appointment. Documented by Elissa Olvera LPN on behalf of: Eric Marc DO [1] No Known Allergies [2] No past medical history on file. [3] No family history on file. [4] No past surgical history on file. documented in this encounter Plan of Treatment Upcoming Encounters Date Type Department Care Team (Late st Contact Info) Description 03/01/2025 10:00 AM EST Ancillary Procedure RAISSA MCCURDY [address] [place] [address] [place] [address] 03/01/2025 10:40 AM EST Routine [facility] MCCURDY [address] [place] [address] [place] [phone] Eric Marc DO [address] [place] [address] [address] [place] [address] Scheduled Orders Name Type Priority Associated Diagnoses Orde r Schedule CBC Lab Routine Diabetes mellitus screening Expected: 02/08/2025 (Approximate), Expires: 02/08/2026 Glucose tolerance, 1 hour Lab Routine Diabetes mellitus screening Expected: 02/08/2025 (Approximate), Expires: 02/08/2026 US OB follow up transabdominal approach Imaging Routine Size of fetus inconsistent with dates, antepartum ([facility]) Expected: 02/08/2025, Expires: 06/11/2025 documented as of this encounter Goals Goal Patient Goal Type Associated Problems Recent Progress Patient-Stated? Author Reminders Care Plan OB Reminders No Elissa Olvera LPN documented as of this encounter Procedures Procedure Name Priority Date/Time Associated Diagnosis Comments POCT URINALYSIS DIPSTICK Routine 02/08/2025 9:08 AM EDT Second trimester ([facility]) documented in this encounter Results * (ABNORMAL) POCT urinalysis dipstick manually resulted (02/08/2025 9:08 AM EDT) Color, UA Yellow Clarity, UA Cloudy Glucose, UA Negative Negative - 2000(110) ++++ mg/dL Bilirubin, UA Negative Negative - 4(70) +++ mg/dL Ketones, UA Negative Negative - 160(16) ++++ mg/dL Spec Grav, UA 1.020 1 - 1.03 Blood, UA Positive Negative - 50 Iam/mcL Comment:Trace pH, UA 6.5 5 - 9 Protein, UA Positive Negative - 2000(20) ++++ mg/dL Comment:Trace Urobilinogen, UA 0.2 0.2 - 12 mg/dL Leukocytes, UA Positive Negative - 500+++ Zakia/mcL Comment:3+ Nitrite, UA Negative Negative - Positive Urine 02/08/2025 9:08 AM EDT us Eric Marc DO POINT OF CARE TEST ENTER/EDIT OR DERABLES Final Result documented in this encounter Visit Diagnoses Diagnosis Diabetes mellitus screening Screening for diabetes mellitus Second trimester ([facility]) state, incidental 25 weeks gestation of ([facility]) Size of fetus inconsistent with dates, antepartum ([facility]) documented in this encounter Additional Health Concerns Active Problems Noted Date Diagnosed Date OB Reminders 12/12/2024 documented as of this encounter
--- OUTSIDE RECORDS SUMMARY | 2025-02-08 10:03 | XMS_ITS | Encounter Summary ---
Author Organization [facility] Address [address] [place] [address] Care Team Providers Care Community Health Counselor Name Role Phone Unavailable Primary Care Provider Unavailabl e Encounter Details Date Type Department Care Team (Late Contact Info) Description 08/30/2024 Orders Only RAISSA MCCURDY [address] [place] [phone] Meli Crisostomo LPN [address] [place] [address] Social History Tobacco Use Types Packs/Day Years [...] 10:00 AM EST Ancillary Procedure RAISSA MCCURDY [address] [place] [address] 03/01/2025 10:40 AM EST Routine [facility] [address] [facility] [place] [address] Eric Marc DO [address] [place], [place] [phone] documented as of this encounter Procedures Procedure [...]
--- OUTSIDE RECORDS SUMMARY | 2025-02-08 10:03 | XMS_ITS | Encounter Summary ---
Author Organization [facility] Address [address] [place] [address] Care Team Providers Care Ware Carrier Name Role Phone Unavailable Primary Care Provider Unavailabl e Encounter Details Date Type Department Care Team (Late st Contact Info) Description 10/24/2024 Abstract RAISSA MCCURDY [address] [place] [phone] Eric Marc DO [address], [place] [address] Social History Tobacco Use Types Packs/Day Years [...] Description 03/01/2025 10:00 AM EST Ancillary Procedure RIASSA MCCURDY [facility] [place] [phone] 03/01/2025 10:40 AM EST Routine [facility] MCCURDY [address] [place] [address] Eric Marc DO [address] [place] [address] documented as of this encounter Visit Diagnoses Not on filedocumented in this encounter
--- OUTSIDE RECORDS SUMMARY | 2025-02-08 10:03 | XMS_ITS | Encounter Summary ---
Author Organization [facility] Address [address] [place], [place] [id number] Care Team Providers Care Front Office Developer Name Role Phone Steffany Metcalf MD Primary Care Provider [phone] Source Comments In the event this information is protected by the Federal Confidentiality of Alcohol and Drug AbusePatient Records regulations: The Federal rules restrict any use of the information to criminally investigate or prosecute any alcohol or drug abuse patient.[facility] Encounter Details Date Type Department Care Team [...] on filedocumented in this encounter Care Teams Front Office Developer Relationship Specialty Start Date End Date Steffany Metcalf MD [address] [place] [address] PCP - General Family Medicine 05/15/19 documented as of this encounter
--- OUTSIDE RECORDS SUMMARY | 2025-02-08 10:03 | XMS_ITS | Encounter Summary ---
Author Organization [facility] Address [address] [place] [address] Care Team Providers Care Belly Roller Name Role Phone Unavailable Primary Care Provider Unavailabl e Encounter Details Date Type Department Care Team (Late st Contact Info) Description 02/08/2025 Bamboo flowsheet RAISSA MCCURDY [address] [place] [address] Eric Marc DO [address], [place] [address] Social History Tobacco Use Types Packs/Day Years [...] 10:00 AM EST Ancillary Procedure RAISSA MCCURDY [facility] [place] [phone] 03/01/2025 10:40 AM EST Routine NOMRafi MCCURDY [address] [place] [address] Eric Marc DO [address] [place] [address] documented as of this encounter Goals Goal Patient Goal Type Associated Problems Recent Progress Patient-Stated? Author Reminders Care Plan OB Reminders No Elissa Olvera LPN documented as of this encounter Visit Diagnoses Not on filedocumented in this encounter Additional Health Concerns Active Problems Noted Date Diagnosed Date OB Reminders 12/12/2024 documented as of this encounter
--- OUTSIDE RECORDS SUMMARY | 2025-02-08 10:03 | XMS_ITS | Encounter Summary ---
Author Organization [facility] Address [address] [place] [address] Care Team Providers Care Social Work Instructor Name Role Phone Unavailable Primary Care Provider Unavailabl e Encounter Details Date Type Department Care Team (Late st Contact Info) Description 12/12/2024 Abstract RAISSA MCCURDY [address] [place] [phone] Eric Marc DO [address], [place] [address] Social History Tobacco Use Types Packs/Day Years [...] 10:00 AM EST Ancillary Procedure RAISSA MCCURDY [facility] [place] [phone] 03/01/2025 10:40 AM EST Routine NOM[facility]af[facility] MCCURDY [address] [place] [address] Eric Marc DO [address] [place] [address] documented as of this encounter Goals Goal Patient Goal Type Associated Problems Recent Progress Patient-Stated? Author Reminders Care Plan OB Reminders No Elissa Olvera LPN documented as of this encounter Visit Diagnoses Not on filedocumented in this encounter Additional Health Concerns Active Problems Noted Date Diagnosed Date OB Reminders 12/12/2024 documented as of this encounter
--- OUTSIDE RECORDS SUMMARY | 2025-02-08 10:03 | XMS_ITS | Encounter Summary ---
Author Organization [facility] Address [address] [place] [address] Care Team Providers Care Commercial Escrow Officer Name Role Phone Unavailable Primary Care Provider Unavailabl e Encounter Details Date Type Department Care Team (Late Contact Info) Description 11/01/2024 Abstract RAISSA MCCURDY [address] [place] [address] Yeimi Montoya MA Social History Tobacco [...] Encounters Date Type Department Care Team (Late Contact Info) Description 03/01/2025 10:00 AM EST [place] [phone] 03/01/2025 10:40 [place] [address] Eric Marc DO [address] [place] [address] documented as of this encounter Visit Diagnoses Not on filedocumented in this encounter
--- OUTSIDE RECORDS SUMMARY | 2025-02-08 10:03 | XMS_ITS | Clinical Summary ---
Author Organization [facility] Address [address] [place] [address] Phone Care Team Providers Care Dry Mill Operator Name Role Phone Unavailable Primary Care Provider [...]
--- OUTSIDE RECORDS SUMMARY | 2025-02-08 10:03 | XMS_ITS | CCD ---
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 [id number] #### [facility] [address] [place] [address] Hydraulic Rockbreaker Operator: John Cobian MD Exp Date Stain [id number] [facility] Comment on above: Performed By: #### 6 [id number] #### [facility] [address] [place] [address]18 Hydraulic Rockbreaker Operator: John Cobian MD Fet HGB POS Positive [facility] Comment on above: Performed By: #### 6 [id number] #### [facility] [address] [place] [address] Hydraulic Rockbreaker Operator: John Cobian MD Hgb Bleed 0 mL [facility] Comment on above: Result Comment: The percentage of Hemoglobin in adults is normally <1% Performed By: #### 6 [id number] #### [facility] [address] [place] [address] Hydraulic Rockbreaker Operator: John Cobian MD Percent .0000 [facility] Comment on above: Performed By: #### 6 [id number] #### [facility] [address] [place] [address] Hydraulic Rockbreaker Operator: John Cobian MD FetMat Ratio .0000 [facility] Comment on above: Performed By: #### 6 [id number] #### [facility] [address] [place] [address] 47385 Hydraulic Rockbreaker Operator: John Cobian MD Lot # Buffer [id number] [facility] Comment on above: Performed By: #### 6 [id number], [id number] #### [facility] [address] [place] [address]37 Hydraulic Rockbreaker Operator: John Cobian MD Lot # Fix [id number] [facility] Comment on above: Performed By: #### 6 [id number], [id number] #### [facility] [address] [place] [address] Hydraulic Rockbreaker Operator: John Cobian MD Lot # Stain [id number] [facility] Comment on above: Performed By: #### 6 [id number] #### [facility] [address] [place] [address] Hydraulic Rockbreaker Operator: John Cobian MD Live Truck Operator [employer] [facility] Comment on above: Performed By: #### 6 [id number] #### [facility] [address] [place] [address] Hydraulic Rockbreaker Operator: John Cobian MD Rhig Calc Check See Footnote [facility] Comment on above: Result Comment: Rhig Check Calculator not indicated Performed By: #### 6 [id number], [id number] #### [facility] [address] [place] [address]146 Hydraulic Rockbreaker Operator: John Cobian MD Room Temp 23 degC [place] [facility] Comment on above: Performed By: #### 6 [id number] #### [facility] [address] [place] [address]11 Hydraulic Rockbreaker Operator: John Cobian MD Total RBC's Counted 1999 [facility] Comment on above: Performed By: #### 6 [id number], [id number] #### [facility] [address] [place] [address] Hydraulic Rockbreaker Operator: John Cobian MD HEMOon 01-28-2025 DIFF? No [facility] Comment on above: Performed By: #### 1 [id number], [id number], [id number], [id number] #### [facility] [address] [place] [address] 06250 Hydraulic Rockbreaker Operator: John Cobian MD Erythrocyte distribution width (RBC) [Ratio] 13.9 % Normal 11.5-14.5 [facility] Comment on above: Performed By: #### 1 58809, [id number], [id number], [id number] #### [facility] [address] [place] [address]206 Hydraulic Rockbreaker Operator: John Cobian MD Hematocrit (Bld) [Volume fraction] 38.7 % Normal 36.0-46.0 [facility] Comment on above: Performed By: #### 1 87111, 731826, [id number], 422860 #### [facility] [address] [place] [address] 21490 Hydraulic Rockbreaker Operator: Jhon Cobian MD Hemoglobin (Bld) [Mass/Vol] 13.6 g/dL Normal 12.0-16.0 [facility] Comment on above: Performed By: #### 1 05809, [id number], [id number], [id number] #### [facility] [address] [place] [address] 41837 Hydraulic Rockbreaker Operator: John Cobian MD Instr WBC 13.8 Normal [facility] Comment on above: Performed By: #### 1 76809, [id number], [id number], 377984 #### [facility] [address] [place] [address]99 Hydraulic Rockbreaker Operator: John Cobian MD MCH (RBC) [Entitic mass] 31.2 pg Normal 27.0-34.0 [facility] Comment on above: Performed By: #### 1 74277, 310854, [id number], [id number] #### [facility] [address] [place] [address] 70909 Hydraulic Rockbreaker Operator: John Cobian MD MCHC (RBC) [Mass/Vol] 35.0 g/dL Normal 32.0-37.0 [facility] Comment on above: Performed By: #### 1 06916, 637465, [id number], 239008 #### [facility] [address] [place] [address] 73391 Hydraulic Rockbreaker Operator: John Cobian MD MCV (RBC) [Entitic vol] 89.1 fL Normal 80.0-100.0 [facility] Comment on above: Performed By: #### 1 46523, 589583, 8298951, 241919 #### [facility] [address] [place] [address] 95879 Hydraulic Rockbreaker Operator: John Cobian MD MDW 17.46 Normal 13.98-20.00 [facility] Comment on above: Result Comment: MDW Interpretation: [...] risk of Sepsis. Performed By: #### 1 01671, 456542, [id number], 854683 #### [facility] [address] [place] [address] 09660 Hydraulic Rockbreaker Operator: Jhon Cobian MD Nucleated RBC 0 /100WBC Normal [facility] Comment on above: Performed By: #### 1 78516, 511931, 7094453, 238308 #### [facility] [address] [place] [address]38 Hydraulic Rockbreaker Operator: John Cobian MD Platelet 237 x10 Normal 150-450 [facility] Comment on above: Performed By: #### 1 46918, 246577, 5373548, 953437 #### [facility] [address] [place] [address] 68908 Hydraulic Rockbreaker Operator: John Cobian MD Platelet mean volume (Bld) [Entitic vol] 7.3 fL Low 7.4-10.4 [facility] Comment on above: Performed By: #### 1 47273, 682083, [id number], 457707 #### [facility] [address] [place] [address] 33611 Hydraulic Rockbreaker Operator: John Cobian MD RBC 4.34 x10 Normal 4.20-5.40 [facility] Comment on above: Result Comment: Note : RBC morphology is normal unless otherwise stated. Evaluation performed only if differential is requested. Performed By: #### 1 81283, 315310, [id number], [id number] #### [facility] [address] [place] [address] Hydraulic Rockbreaker Operator: John Cobian MD WBC 13.8 x10 High 4.5-11.0 [facility] Comment on above: Performed By: #### 1 45699, 865509, 6509808, 593004 #### [facility] [address] [place] [address] Hydraulic Rockbreaker Operator: John Cobian MD LIPon 01-28-2025 Lipase [Catalytic activity/Vol] 38 U/L Normal 12-53 [facility] Comment on above: Performed By: #### 1 03284, 913426, 4416940, 210379 #### [facility] [address] [place], [place] [id number] Hydraulic Rockbreaker Operator: John Cobian MD LaboratoryOrdered By: Judith mullins [...] on 01-28-2025 Estimated Creatinine Clearance 107.01 mL/min [facility] Albumin BCP dye [Mass/Vol] 3.2 g/dL Low 3.4 - 5.0 g/dL SW ADM RES Albumin/Globulin [Mass ratio] 0.9 {ratio} Invalid Interpretation Code SW ADM RES ALP [Catalytic activity/Vol] 56 U/L Normal 45 - 117 unit/L SW ADM RES ALT With P-5'-P [Catalytic activity/Vol] 14 U/L Normal 10 - 49 unit/L SW ADM RES AST With P-5'-P [Catalytic activity/Vol] 17 U/L Normal 15 - 37 unit/L SW ADM RES Basophils (Bld) [#/Vol] 0.05 10*3/uL [...] mmol/L Normal 98 - 10 7 mmol/L SW ADM RES CO2 [Moles/Vol] 19.0 mmol/L Low 20.0 - 31.0 mmol/L SW ADM RES Creatinine [Mass/Vol] 0.7 mg/dL Normal 0.5 - 0.8 mg/dL ADM RES Eosinophils (Bld) [#/Vol] 0.12 10*3/uL Normal 0.00 - 0.50 x1000 Dx 1600 MPL Eosinophils/100 WBC (Bld) 0.9 % Invalid Interpretation Code DxH 1600 MPL Erythrocyte distribution width (RBC) [Ratio] 13.9 % Normal 11.5 - 14.5 % DxH 1600 MPL GFR AA 1 Invalid Interpretation Code ADM RES Comment on above: Result Comment: Afri can [place] GFR Calc Interpretive Data: Medical judgement is [...] (S/P/Bld) [Vol rate/Area] mL/min/1.73m Invalid Interpretation Code ADM RES Comment on [...] 38 U/L Normal 12 - 53 unit/L SW ADM RES Lymphocytes (Bld) [#/Vol] 2.68 10*3/uL [...] 0.71 10*3/uL Normal 0.10 - 1.00 x1000 SW DxH 1600 MPL Monocytes/100 WBC (Bld) 5.1 % Invalid Interpretation Code SW DxH 1600 MPL Neutrophils (Bld) [#/Vol] 10.24 10*3/uL High 1.40 - 8.80 x1000 Dx 1600 MPL Neutrophils/100 WBC (Bld) 74.2 % Invalid Interpretation Code Dx 1600 MPL Nucleated RBC Auto Ql (Bld) 0 /100WBC Invalid Interpretation Code Dx 1600 MPL Osmolality Calc [Osmolality] 276 mOsm/kg Normal 275 - 295 mOsm/kg [facility] RES Platelet mean volume (Bld) [Entitic vol] 7.3 fL Low 7.4 - 10.4 fL Dx 1600 MPL Platelets (Bld) [#/Vol] 237 10*3/uL Normal 150 - 450 x10^3/uL Dx 1600 MPL Potassium [Moles/Vol] 3.5 mmol/L Normal 3.5 - 5.1 mmol/L [facility] Protein [Mass/Vol] 6.7 g/dL Normal 5.7 - 8.2 g/dL [facility] Comment on above: Interpretive Data: T otal Protein results may be increased in patients receiving dextran as a blood volume chrome polisher RBC (Bld) [#/Vol] 4.34 10*6/uL Normal 4.20 - 5.4 0 x10^6/uL Dx 1600 MPL Comment on above: Interpretive Data: N ote: RBC morphology is normal unless otherwise stated. Evaluation performed only if differential is requested. Sodium [Moles/Vol] 140 mmol/L Normal 135 - 145 mmol/L [facility] Urea nitrogen [Mass/Vol] 5 mg/dL Low 9 - 23 mg/dL [facility] Comment on above: Interpretive Data: - Venipuncture should occur prior to N- Acetyl Cysteine (NAC) or Metamizole (Sulpyrine) administration due to the potential for falsely depressed results. - Blood samples from some patients with monoclonal gammopathies may produce falsely elevated results Urea nitrogen/Creatinine [Mass ratio] 7.1 mg/mg Invalid Interpretation Code [facility] RES WBC corrected for nucl RBC Auto (Bld) [#/Vol] 13.8 x10^3/uL High 4.5 - 11.0 x10^3/uL Dx 1600 MPL XR CHEST 1 VIEWon 01-28-2025 [...] ARTEAGA MD Signed Out: 01/28/25 17:10:00 Normal [facility] XR STERNUMon 01-28-2025 XR STERNUM EXAM DESCRIPTION: [...] ARTEAGA MD Signed Out: 01/28/25 17:08:51 Normal [facility] Urinalysis macro (dipstick) panel (U)on 01-10-2025 Bilirubin, UA Negative Negative - 4(70) +++ mg/dL [facility] Blood, UA Negative Negative - 50 Iam/mcL [facility] Clarity, UA Clear [facility] Color, UA Yellow [facility] Glucose, UA Negative Negative - 2000(110) ++++ mg/dL [facility] Interpretation and review of laboratory results Normal [facility] Ketones, UA Negative Negative - 160(16) ++++ mg/dL [facility] Leukocytes, UA Negative Negative - 500+++ Zakia/mcL [facility] Nitrite, UA Negative Negative - Positive [facility] pH, UA 6.5 5 - 9 [facility] Protein, UA Negative Negative - 2000(20) ++++ mg/dL [facility] Spec Grav, UA 1.02 1 - 1.03 [facility] Urobilinogen, UA 1.0 0.2 - 12 mg/dL Pending sale to [facility] AFP, SERUM, OPEN SPINA BIFID Aon 12-14-2024 AFP MOM 0.84 . [facility] AFP VALUE 31.4 ng/mL . [facility] COMMENT: Comment . [facility] Comment on above: Carlene Fernandes , Ph.D., [facility] Director References: Available Upon Request. Multiples Of Median Cutoffs For AFP Elevations Bhandari 2.5 Black 2.8 IDD 2.0 Twins 4.5 Abbreviation Definitions IDD - Insulin Dep Diabetes OSBR - Open Spina Bifida Risk For further inquiries contact Who@ [email or web address] at [phone]. This test was developed and its performance characteristics determined by [facility]. It has not been cleared or approved by the Food and Drug Administration. Performed at: [facility] [employer] [address] [place], [place] [id number] Design Supervisor: Shannan Christensen [facility], Phone: [phone] GEST. AGE ON COLLECTION DATE 17.4 . weeks [facility] GESTAT. AGE BASED ON Ultrasound . [facility] Comment on above: 17.4 on 12/12/2024 Recalculations are not recommended when gestational dating by LMP and ultrasound are within 10 days. INSULIN DEP DIABETES No . [facility] INTERPRETATION Comment . [facility] Comment on above: Interpretation: Scre en Negative [...] Customer Services to discuss available options. The [employer] recommends amniocentesis be offered to women age 35 and older. [age] [facility] MULTIPLE GESTATION No . [facility] OSBR RISK 1 [place] [id number] . [facility] RACE . [facility] RESULTS Report . [facility] TEST RESULTS: Negative . [facility] WEIGHT 165 . lbs [facility] N N ULTRASOUND [id number] 17 N 1 Y 165 N N N N N White/ [facility] RECURRENT VAGINITIS (HTRX)on 12-13-2024 ATOPOBIUM VAGINAE 0 [facility] ATOPOBIUM VAGINAE Not detected [facility] BVAB 2,3 (BACTERIAL VAGINOSIS ASSOCIATED BACTERIA 2, 3); MOBILUNCUS SPP 0 [facility] BVAB 2,3 (BACTERIAL VAGINOSIS ASSOCIATED BACTERIA 2, 3); MOBILUNCUS SPP Not detected [facility] BRAYAN ALBICANS, PARAPSILOSIS, TROPICALIS 0 [facility] BRAYAN ALBICANS, PARAPSILOSIS, TROPICALIS Not detected [facility] BRAYAN GLABRATA 0 [facility] BRAYAN GLABRATA Not detected [facility] BRAYAN KRUSEI 0 [facility] BRAYAN KRUSEI Not detected [facility] CHLAMYDIA TRACHOMATIS 0 [facility] CHLAMYDIA TRACHOMATIS Not detected N [facility] GARDNERELLA VAGINALIS 0 [facility] GARDNERELLA VAGINALIS Not detected N [facility] MEGASPHAERA (TYPES 1, 2) 0 [facility] MEGASPHAERA (TYPES 1, 2) Not detected [facility] MYCOPLASMA GENITALIUM 0 [facility] MYCOPLASMA GENITALIUM Not detected N [facility] NEISSERIA GONORRHOEAE 0 [facility] NEISSERIA GONORRHOEAE Not detected N [facility] TRICHOMONAS VAGINALIS 0 [facility] TRICHOMONAS VAGINALIS Not detected N [facility] US OB 14+ WEEKS ANATOMY SCAN on [...] UA Negative Negative - 4(70) +++ mg/dL [facility] Blood, UA Negative Negative - 50 Iam/mcL [facility] Clarity, UA Clear [facility] Color, UA Yellow [facility] Glucose, UA Negative Negative - 1999(110) ++++ mg/dL [facility] Interpretation and review of laboratory results Abnormal [facility] Ketones, UA Negative Negative - 160(16) ++++ mg/dL [facility] Leukocytes, UA 3+ Negative - 500+++ Zakia/mcL [facility] Nitrite, UA Negative Negative - Positive [facility] pH, UA 6 5 - 9 [facility] Protein, UA Few Negative - 2000(20) ++++ mg/dL [facility] Spec Grav, UA 1.02 1 - 1.03 [facility] Urobilinogen, UA 0.2 0.2 - 12 mg/dL [facility] Urinalysis macro (dipstick) panel (U)on 11-09-2024 Bilirubin, UA Negative Negative - 4(70) +++ mg/dL [facility] Blood, UA Negative Negative - 50 Iam/mcL [facility] Clarity, UA Cloudy [facility] Color, UA Yellow [facility] Glucose, UA Negative Negative - 2000(110) ++++ mg/dL [facility] Interpretation and review of laboratory results Abnormal [facility] Ketones, UA Negative Negative - 160(16) ++++ mg/dL [facility] Leukocytes, UA Moderate Negative - 500+++ Zakia/mcL [facility] Nitrite, UA Negative Negative - Positive [facility] pH, UA 7.5 5 - 9 [facility] Protein, UA Negative Negative - 1999(20) ++++ mg/dL [facility] Spec Grav, UA 1.02 1 - 1.03 [facility] Urobilinogen, UA 1.0 0.2 - 12 mg/dL Pending sale to [facility] ALL CBC WITH AUTO DIFFon BASOPHILS ABSOLUTE AUTO 0 [facility] Basophils/100 WBC (Bld) 0.3 % 0.2 - 2.0 % [facility] Eosinophils/100 WBC (Bld) 2 % 0.9 - 7.0 % [facility] Erythrocyte distribution width (RBC) [Ratio] 12.4 % 11.0 - 15.0 % [facility] Hematocrit (Bld) [Volume fraction] 38.9 % 36.0 - 48.0 % [facility] Hemoglobin (Bld) [Mass/Vol] 13.9 g/dL 12.0 - 16.0 g/dL [facility] IMMATURE GRANULOCYTES ABS AUTO 0.02 [facility] Immature granulocytes/100 WBC (Bld) 0.3 % 0.0 - 0.5 % [facility] Interpretation and review of laboratory results Abnormal [facility] LYMPHOCYTES ABSOLUTE AUTO 1.9 [facility] Lymphocytes/100 WBC (Bld) 27.8 % 20.5 - 60.0 % [facility] MCH (RBC) [Entitic mass] 30.7 pg 26.7 - 34.0 pg [facility] MCHC (RBC) [Mass/Vol] 35.7 g/dL High 29.9 - 35.2 g/dL [facility] MCV (RBC) [Entitic vol] 85.9 fL 81.0 - 99.0 fL [facility] MONOCYTES ABSOLUTE AUTO 0.4 [facility] Monocytes/100 WBC (Bld) 5.4 % 1.7 - 12.0 % [facility] NEUTROPHILS ABSOLUTE AUTO 4.3 [facility] Neutrophils/100 WBC (Bld) 64.2 % 43.0 - 75.0 % [facility] Platelet mean volume (Bld) [Entitic vol] 9 fL Low 9.5 - 13.5 fL [facility] TB EO # 0.1 [facility] PLT 226 [facility] RBC 4.53 [facility] WBC 6.7 [facility] BOX TESTon 10-14-2024 BOX TEST SENT OUT [facility] BOX1 [facility] BOX2 10/14/24 [facility] HCG ( test) Ql (U)o n 10-13-2024 Interpretation and review of laboratory results Abnormal [facility] Preg Test, Ur Positive Negative Pending sale to [facility] US OB TRANSVAGINALon 025 US OB TRANSVAGINAL [...] II, MD, PHD at 16-Oct-2024 08:55:44 AM [facility] Normal Not Available Comment on above: Order Comment: US OB TRANSVAGINAL No LMP recorded. Urinalysis macro (dipstick) panel (U)on 10-13-2024 Bilirubin, UA Negative Negative - 4(70) +++ mg/dL [facility] Blood, UA Positive Negative - 50 Iam/mcL [facility] Comment on above: trace Clarity, UA Clear [facility] Color, UA Yellow [facility] Glucose, UA Negative Negative - 1999(110) ++++ mg/dL [facility] Ketones, UA Negative Negative - 160(16) ++++ mg/dL [facility] Leukocytes, UA Positive Negative - 500+++ Zakia/mcL [facility] Comment on above: small Nitrite, UA Negative Negative - Positive [facility] pH, UA 6.5 5 - 9 [facility] Protein, UA Negative Negative - 1999(20) ++++ mg/dL [facility] Spec Grav, UA 1.02 1 - 1.03 [facility] Urobilinogen, UA 0.2 0.2 - 12 mg/dL Pending sale to [facility] TBH PREG QUANT HCGon -- 025 HCG QUANTITATIVE 230 mIU/mL [facility] Comment on above: 5-50 0.2-1 WEEK 50-500 1-2 WEEKS 100-5,000 2-3 WEEKS 500-10,000 3-4 WEEKS 1,000-50,000 4-5 WEEKS 10,000-100,000 5-6 WEEKS 15,000-200,000 6-8 WEEKS 10,000-100,000 2-3 MONTHS [facility]IN[facility] IGP,APTIMA HPV,AGE GDLNon -2024 AGE GDLN ACOG TESTING Note . [facility] Comment on above: TESTS RESULT FLAG UN ITS REF RANGE LAB Clinician Provided Cytology Information Source.............Cervix;Endocervix No. of containers..01 ThinPrep Vial Age Algo ACOG Cheli... FLAG LEGEND: L-Low Normal,H-High Normal,LL-Alert Low,HH-Alert High <-Panic Low,>-Panic High,A-Abnormal,AA-Critical Abnormal Performed at: 01 =G [address] [place] [address] Bebe Pleitez MD, IGP, RFX APTIMA HPV ASCU Note . [facility] Comment on above: TESTS RESULT FLAG U NITS REF RANGE LAB DIAGNOSIS: 02 NEGATIVE FOR INTRAEPITHELIAL LESION OR MALIGNANCY. Specimen adequacy: 02 Satisfactory for evaluation. Endocervical and/or squamous metaplastic cells (endocervical component) are present. Performed by: Kevin Loya Recruiting Consultant ([facility]) . 02 Note: Note 02 The Pap [...] <-Panic Low,>-Panic High,A-Abnormal,AA-Critical Abnormal Performed at: [address] [facility] [address] [phone] Bebe Pleitez MD, Performed at: =G - [facility] [address] [id number] Design Supervisor: Bebe Pleitez MD, Phone: [phone] Performed at: WB - [facility] [address] [id number] Design Supervisor: Bebe Pleitez MD, Phone: [phone] BRUSH-SPATULA CERVIX ENDOCERVIX [facility]on 03-27 SARS-CoV-2 (COVID-19) RNA SHANTHI+probe Ql (Unsp spec) Not detected Normal NOT DETECTED [facility] Comment on above: Result Comment: This test is not yet approved or cleared by the [place] FDA. When there are no FDA-approved or cleared tests available, and other criteria are met, FDA can make tests available under an emergency access mechanism called an Emergency Use Authorization (EUA). The EUA for this test is supported by the Hoisting Machine Operator of Health and Human Service's (HHS's) declaration [...] SARS-CoV-2. Performed By: #### C VDTB #### [facility] [address] [place] [address] Dr. Chitra Pineda OBSOLETEon 09-12-2019 OBSOLETE Refill (HEMASA) DARIEN JIMENEZ ([id number]) 1 F Date Time Provider Department 09/12/19 [...] by DOUG OLVERA MD on 09/13/19 [facility] CNOVSPon 06-23-2019 CNOVSP Visit (SP) Office (BECKYASA) DARIEN JIMENEZ ([id number]) 1 F Date Time Provider Department 06/23/19 [...] mouth twice daily. levonorgestrel-ethiny l estradiol (LEVORA 0.15/, 28,) 0.15-0.03 mg per [...] Doug Olvera MD CC: Steffany Rodriguez MD [address] [place] [phone] Referring Provider: DOUG OLVERA [[id number]] Allergies As of Date: 06/23/2019 (No Known [...] by DOUG OLVERA MD on 06/23/19 [facility] PROGRESSon 06-23-2019 PROGRESS HNO ID: [id number] Author: Doug Olvera Service: ? Author Type: [...] Doug Olvera MD CC: Steffany Rodriguez MD [address] [place] [phone] [facility] CNOVSPon 05-24-2019 CNOVSP Visit (SP) Office (HEMASA) DARIEN JIMENEZ ([id number]) 1 F Date Time Provider Department 05/24/19 4:15 PM DOUG OLVERA During your visit today, we recorded the following information about you: Temperature Pulse Respiration Blood pressure 97.3 degrees 79/minute 18/minute 127/73 Weight Height Last Period 61 kg 1.61 m 05/10/19 Doug Olvera MD 05/25/2019 12:15 PM Signed Consultation requested by Dr. Rodriguze for an opinion regarding Ms. Darien Jimenez, [...] results of GI workup and biopsies from [place]. Doug Olvera MD CC: severe Iron deficiency [...] diagnosis) Plan: CBC + DIFF (FOR REMOTE C USE), COMP METABOLIC PANEL, IRON + TIBC, FERRITIN BLD, RETIC COUNT, VITAMIN B12 BLOOD, FOLATE SERUM CC: SELF Steffany Rodriguez MD [address] [place] [phone] Doug Olvera MD Referring Provider: SELF [[id number]] Allergies As of Date: 05/24/2019 (No Known Allergies) Date Reviewed: 05/24/2019 Reviewed by: Tawny Westbrook - Fully Assessed Reason for Visit: Anemia [6] Cmt: new patient consult Primary Visit Diagnosis:Iron deficiency anemia due to chronic blood loss [D50.0] Order(s):CBC + DIFF (FOR REMOTE [facility] USE) [SQRCBCDF] Order #: [id number] FUTURE COMP METABOLIC PANEL [SQCMP] Order #: [id number] FUTURE IRON + TIBC [SQIRON] Order #: [id number] FUTURE FERRITIN BLD [SQFERR] Order #: [id number] FUTURE RETIC COUNT [SQRETIC] Order #: [id number] FUTURE VITAMIN B12 BLOOD [SQB12] Order #: [id number] FUTURE FOLATE SERUM [SQSERFOL] Order #: [id number] FUTURE Disposition: Return in about 4 weeks [...] Status:Closed by DOUG OLVERA MD on 05/25/19 [facility] PROGRESSon 05-24-2019 PROGRESS HNO ID: [id number] Author: Doug Olvera Service: ? Author Type: [...] results of GI workup and biopsies from [place]. Doug Olvera MD CC: severe Iron deficiency [...] diagnosis) Plan: CBC + DIFF (FOR REMOTE [facility] USE), COMP METABOLIC PANEL, IRON + TIBC, FERRITIN BLD, RETIC COUNT, VITAMIN B12 BLOOD, FOLATE SERUM CC: SELF Steffany Rodriguez MD [facility] [phone] Doug Olvera MD [facility] Vital Signs Date Time Vital Sign Value Performing Clinician Cesar cerda 02-08-2025 09:04-0400 Body mass index (BMI) [Ratio] 30.25 kg/m2 Happy Cosas Work Phone: [facility] 02-08-2025 09:04-0400 Body weight 79.95 kg Happy Cosas Work Phone: [facility] 02-08-2025 09:04-0400 Diastolic blood pressure 82 mm[Hg] Happy Cosas Work Phone: [facility] 02-08-2025 09:04-0400 Systolic blood pressure 120 mm[Hg] Happy Cosas Work Phone: [facility] 01-10-2025 10:51-0400 Body mass index (BMI) [Ratio] 29.15 kg/m2 Judith SOSA Work Phone: [facility] 01-10-2025 10:51-0400 Body weight 77.02 kg Judith Rojasey PA Work Phone: [facility] 01-10-2025 10:51-0400 Diastolic blood pressure 74 mm[Hg] Judith Rojasey PA Work Phone: [facility] 01-10-2025 10:51-0400 Systolic blood pressure 112 mm[Hg] Judith Rojasey PA Work Phone: [facility] 12-12-2024 09:31-0400 Body mass index (BMI) [Ratio] 28.46 kg/m2 Luis Fernando Tari DO Work Phone: [facility] 12-12-2024 09:31-0400 Body weight 75.21 kg Luis Fernando Tari DO Work Phone: [facility] 12-12-2024 09:31-0400 Diastolic blood pressure 72 mm[Hg] Luis Fernando Tari DO Work Phone: [facility] 12-12-2024 09:31-0400 Systolic blood pressure 112 mm[Hg] Luis Fernando Tari DO Work Phone: [facility] 11-09-2024 09:08-0400 Body mass index (BMI) [Ratio] 27.31 kg/m2 Luis Fernando Tari DO Work Phone: [facility] 11-09-2024 09:08-0400 Body weight 72.18 kg Luis Fernando Tari DO Work Phone: [facility] 11-09-2024 09:08-0400 Diastolic blood pressure 70 mm[Hg] Luis Fernando Tari DO Work Phone: [facility] 11-09-2024 09:08-0400 Systolic blood pressure 110 mm[Hg] Luis Fernando Tari DO Work Phone: [facility] 10-13-2024 09:26-0400 Body mass index (BMI) [Ratio] 27.64 kg/m2 Tari Ob [facility] 10-13-2024 09:26-0400 Body weight 73.03 kg Tari Ob [facility] 10-13-2024 09:26-0400 Diastolic blood pressure 72 mm[Hg] Tari Ob [facility] 10-13-2024 09:26-0400 Systolic blood pressure 118 mm[Hg] Tari Ob [facility] 08-18-2024 10:59-0400 Body height 162.6 cm Luis Fernando Tari DO Work Phone: [facility] 08-18-2024 10:59-0400 Body mass index (BMI) [Ratio] 27.12 kg/m2 Luis Fernando Tari DO Work Phone: [facility] 08-18-2024 10:59-0400 Body weight 71.67 kg Luis Fernando Tari DO Work Phone: [facility] 08-18-2024 10:59-0400 Diastolic blood pressure 70 mm[Hg] Luis Fernando Tari DO Work Phone: [facility] 08-18-2024 10:59-0400 Systolic blood pressure 118 mm[Hg] Luis Fernando Tari DO Work Phone: [facility] Healthcare Encounters Encounter Date Encounter Type Care Provider Facility Start: 02-08-2025 End: 02-08-2025 Bamboo flowsheet Luis Fernando Tari DO Work Phone: [facility] OBJOSE ALBERTO Start: 02-08-2025 End: 02-08-2025 Bamboo flowsheet Luis Fernando Tari DO Work Phone: [facility] OBESTUARDON Start: 02-08-2025 End: 02-08-2025 flow sheet Luis Fernando Tari DO Work Phone: [facility] Comment on above: Diabetes mellitus sc reening; Second trimester ([facility]); 25 weeks gestation of ([facility]); Size of fetus inconsistent with dates, antepartum ([facility]) Start: 02-01-2025 End: 02-01-2025 Clinisync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 accuracy or completeness of information in this document.
--- OUTSIDE RECORDS SUMMARY | 2025-02-08 10:03 | XMS_ITS | Clinical Summary ---
Author Organization [facility] Address [address] [place] [address] Care Team Providers Care Xm1 Tank Driver Name Role Phone Unavailable Primary Care Provider Unavailabl e Allergies No known active allergies Medications Vit-Fe Fumarate-FA ( Vitamins) 28-0.8 MG tabletIndication s:Missed menses Take 1 tablet by mouth Daily 30 tablet 09/13/19 026 Active docusate sodium (Colace) 100 MG capsuleIndicatio ns:Constipation, unspecified constipation type Take 1 capsule (100 mg) by mouth 2 (two) times a day as needed for constipation 30 capsule 12/05/19 026 Active Famotidine (PEPCID PO) Take 1 tablet by mouth Daily in the Morning Active pantoprazole (Protonix) 40 MG EC tabletIndication s:Heartburn during in second trimester ([facility]) Take 1 tablet (40 mg) by mouth in the morning. Take before meals. Do not crush, chew, or split. 30 tablet 12/13/19 25 026 Active docosanol cream (Abreva) 10 % cream creamIndications :Rash Apply 1 application topically 5 (five) times a day 2 g 1 01/12/20 25 Active methylPREDNISolo ne (Medrol Dospak) 4 MG tabletsIndicatio ns:Impetigo,Rash Day 1: 6 tablets Day 2: 5 tablets Day 3: 4 tablets Day 4: 3 tablets Day 5: 2 tablets Day 6: 1 tablet 21 tablet 01/16/20 Active valACYclovir (Valtrex) 1 g tabletIndication s:Rash Take 1 tablet (1,000 mg) by mouth in the morning and 1 tablet (1,000 mg) before bedtime. Do all this for 10 days. 20 tablet 01/12/20 25 025 Active Problems Problem Noted Date Diagnosed Date Impetigo 12/20/2024 [place] 08/18/2024 Irregular menstrual cycle 08/18/2024 Well woman exam with routine gynecological exam 08/18/2024 Estimated Date of Delivery Comme nts Yes 05/19/2025 Based on Ultraso und Encounters Date Type Department Care Team Description 02/08/2025 9:00 AM [place] [address] Luis Fernando Marc, DO Diabetes mellitus screening; Second trimester ([facility]); 25 weeks gestation of ([facility]); Size of fetus inconsistent with dates, antepartum ([facility]) 02/08/2025 Bamboo flowsheet [facility] [place] [address] Luis Fernando Marc, 02/07/2025 Travel 02/01/2025 Clinisync Result Encounter NOMS External Department Unsolicited Luis Fernando Marc, 01/15/2025 [place] [address] Luis Fernando Marc, 01/11/2025 Telephone [facility] [address] [address] [place] [address] Sherrell Youngblood MA 01/10/2025 11:00 AM [place] [address] Judith Toure PA 21 weeks gestation of ([facility]); Second trimester ([facility]); Rash 01/10/2025 10:00 AM EDT Ancillary Procedure [facility] [address] [place] [address] 01/05/2025 Travel 12/20/2024 Telephone [facility] [address] [place] [address] Luis Fernando Marc, DO 12/12/2024 9:20 AM EDT Routine [facility] [address] [place] [address] Luis Fernando Marc, DO 17 weeks gestation of ([facility]); Second trimester ([facility]); Screening, , for anatomic survey ([facility]); Exposure to STD; Vaginal discharge; Heartburn during in second trimester ([facility]) 12/12/2024 Clinisync Result Encounter NOMS External Department Unsolicited Luis Fernando Marc, DO 12/12/2024 External Result Encounter NOMS External Department Unsolicited Luis Fernando Marc, DO 12/12/2024 Abstract [facility] [address] [place] [address] Luis Fernando Marc, DO 12/12/2024 Bamboo flowsheet [facility] [address] [place] [address] Luis Fernando Marc, DO 12/05/2024 Travel 12/04/2024 Telephone [facility] [address] [place] [address] Aretha Phelan LPN 11/09/2024 9:10 AM EDT Routine [facility] [address] [place] [address] Luis Fernando Marc, DO 12 weeks gestation of ([facility]); First trimester ([facility]) 11/09/2024 Bamboo flowsheet [facility] [address] [place] [address] Luis Fernando Marc DO from Last 3 Months Social History Tobacco [...] 4 oz) 02/08/2025 9:04 AM EDT Height 162.6 cm (5' 4 ) 08/18/2024 10:59 AM EDT Body Mass Index 30.25 08/18/2024 10:59 AM EDT Plan of Treatment Upcoming Encounters Date Type Department Care Team (Late st Contact Info) Description 03/01/2025 10:00 AM EST Ancillary Procedure [facility] [address] [address] [place] [phone] 03/01/2025 10:40 AM EST Routine [facility] [address] [place] [address] Luis Fernando Marc DO [address] [place] [address] Goals Goal Patient Goal Type Associated Problems Recent Progress Patient-Stated? Author Reminders Care Plan OB Reminders No Elissa Olvera, HEENA Procedures Procedure Name Priority Date/Time Associated Diagnosis Comments POCT URINALYSIS DIPSTICK Routine 02/08/2025 9:08 AM EDT Second trimester ([facility]) OB INCOMPLETE ANATOMY 02/01/2025 7:56 AM EDT POCT URINALYSIS DIPSTICK Routine 01/10/2025 10:57 AM EDT 21 weeks gestation of ([facility]) Second trimester ([facility]) US OB 14+ WEEKS ANATOMY SCAN Routine 01/10/2025 10:44 AM EDT Screening, , for anatomic survey ([facility]) AFP, SERUM, OPEN SPINA BIFIDA Routine 12/12/2024 10:33 AM EDT POCT URINALYSIS DIPSTICK Routine 12/12/2024 9:36 AM EDT 17 weeks gestation of ([facility]) Second trimester ([facility]) RECURRENT VAGINITIS (HTRX) Routine 12/12/2024 9:24 AM EDT POCT URINALYSIS DIPSTICK Routine 11/09/2024 9:12 AM EDT 12 weeks gestation of ([facility]) First trimester ([facility]) from Last 3 Months Results * (ABNORMAL) POCT urinalysis dipstick manually resulted (02/08/2025 9:08 AM EDT) Only the most recent of4 resultswithin the time period is included. Color, UA Yellow Clarity, UA Cloudy Glucose, [...] - Positive Urine 02/08/2025 9:08 AM EDT Luis Fernando Marc DO POINT OF CARE TEST ENTER/EDIT OR DERABLES Final Result * US OB INCOMPLETE ANATOMY (02/01/2025 7:56 AM EDT) Anatomical Region Laterality Modality Other 02/01/2025 7:56 AM EDT Narrative 02/01/2025 7:58 [place] [address] Ultrasound Report Signed Patient: DARIEN JIMENEZ MR#: [id number] : 2000 Acct:[id number] Age/Sex: 24 / F ADM Date: 01/31/25 Loc: US Attending Dr: Luis Fernando Marc D.O. Ordering Physician: Luis Fernando Marc D.O. Date of Service: 01/31/25 Procedure(s): US OB incomplete anatomy Accession Number(s): [id number] cc: Steffany Metcalf M.D.; Luis Fernando Marc D.O. [place] [id number] Patient Name: DARIEN JIMENEZ MRN: [id number] date: 2000 Sex: F Assigned Patient Location: US Current Patient Location: Accession/Order Number: [id number] Exam Date: 01/31/2025 13:50 Report Date: 02/01/2025 [...] Mims M.D. 02/01/2025 7:56 AM Dictation Location: [place] [address] Electronically authenticated by: [id number] Y Date: 02/01/2025 07:56 Dictated By: Rahel Mims M.D. Signed By: 02/01/25 075 DD/ 5 TD/TT: Supervisor Accounting Clerks: Procedure Note Radiology, Radiologist, - 02/01/2025 [place] [address] Ultrasound Report Signed Patient: DARIEN JIMENEZ MMR#: [id number] : 2000Acct:[id number] Age/Sex: 24 / FADM Date: 01/31/25 Loc: US Attending Dr: Luis Fernando Marc D.O. Ordering Physician: Luis Fernando Marc D.O. Date of Service: 01/31/25 Procedure(s): US OB incomplete anatomy Accession Number(s): [id number] cc: Steffany Metcalf M.D.; Luis Fernando Marc D.O. [place] [address] Patient Name: DARIEN JIMENEZ MRN: [id number] date: 2000 Sex: F Assigned Patient Location: US Current Patient Location: Accession/Order Number: [id number] Exam Date: 01/31/2025 13:50 Report Date: 02/01/2025 [...] normal. There is cardiac and somatic activity withheart rate of 148 bpm. An unremarkable four-chamber heart is visualized. US/US OB incomplete anatomy IMPRESSION: UNREMARKABLE FOUR-CHAMBER HEART. Impression dictated by: Rahel Mims M.D. 02/01/2025 7:56 AM Dictation Location: [place] [address] Electronically authenticated by: [id number] Y Date: 7:56 Dictated By: Rahel Mims M.D. Signed By:02/01/25 075 DD/ 5 TD/TT: Supervisor Accounting Clerks: us Luis Fernando Tari DO [facility] Final Result * US OB 14+ weeks anatomy scan (01/10/2025 10:44 AM EDT) Anatomical Region Laterality Modality Body Ultrasound 01/10/2025 4:15 PM EDT Impressions 01/11/2025 8:12 AM EDT 1. Single, live intrauterine , current sonographic age of 21 weeks and 4 days, with an estimated date of delivery of May 19, 2025. 2. Suboptimal cardiac chamber evaluation * Estimated Weight (g) by Percentile is based upon an accurate estimated age based on last menstrual period. TRANSCRIBED BY: ELECTRONICALLY SIGNED BY: Angus Recio MD Narrative 01/11/2025 8:12 AM EDT FINDINGS: A single, live intrauterine is present [...] is 457 grams (1 pound, 0 ounces). Procedure Note Angus Recio MD - 01/11/2025 FINDINGS: A single, live intrauterine is present with normal cardiacrate of 159 beats per minute. Normal activity and amniotic fluidvolume. Morphology is normal, however an adequate four-chamber view wasnot visualized.. The cervix is closed, prominent endocervical folds,minimal endocervical fluid (1-2 mm). The placenta is anterior, notassociated with the cervical os. The current sonographic age is 21 weeksand 4 days, based on the following measurements: BPD 5.3 cm (22 weeks, 1 day) Head Circumference 19.6 cm (21 weeks, 5 days) Abdominal Circumference 17.0 cm (22 weeks, 0 days) Femur Length 3.7 cm (21 weeks, 5 days) Placenta Anterior Grade I Weight (g) by Percentile 60 % * These measurements result in an estimated date of delivery of April. The current estimated weight is 457 grams (1 pound, 0ounces). IMPRESSION: 1. Single, live intrauterine , current sonographic age of 21weeks and 4 days, with an estimated date of delivery of April. 2. Suboptimal cardiac chamber evaluation * Estimated Weight (g) by Percentile is based upon an accurateestimated age based on last menstrual period. TRANSCRIBED BY: ELECTRONICALLY SIGNED BY: Angus Recio MD us Luis Fernando Tari DO IMG OB US PROCEDURES Final Resul t * AFP, SERUM, OPEN SPINA BIFIDA (12/12/2024 10:33 AM EDT) RESULTS Report . [facility] TEST RESULTS: *Screen Negative* . [facility] GEST. AGE ON COLLECTION DATE 17.4 . weeks [facility] GESTAT. AGE BASED ON Ultrasound . [facility] Comment: 17.4 on 12/12/2024 Recalculations are not recommended when gestational dating by LMP and ultrasound are within 10 days. [age] [facility] RACE . [facility] WEIGHT 165 . lbs [facility] INSULIN DEP DIABETES No . [facility] MULTIPLE GESTATION No . [facility] AFP VALUE 31.4 . ng/mL [facility] AFP MOM 0.84 . [facility] [place] [address] . [facility] INTERPRETATION Comment . [facility] Comment: Interpretation: Screen Negative This result is screen negative for [...] Customer Services to discuss available options. The [place] [employer] recommends amniocentesis be offered to women age 35 and older. COMMENT: Comment . [facility] Comment: Carlene Fernandes, Ph.D., [facility] Director References: Available Upon Request. Multiples Of Median Cutoffs For AFP Elevations Bhandari 2.5 Black 2.8 IDD 2.0 Twins 4.5 Abbreviation Definitions IDD - Insulin Dep Diabetes OSBR - Open Spina Bifida Risk For further inquiries contact [facility] at [phone]. This test was developed and its performance characteristics determined by [facility]. It has not been cleared or approved by the Food and Drug Administration. Performed at: [facility] [facility], [place], [place] [id number] Production Checker: Shannan Christensen [facility], Phone: [phone] 12/12/2024 10:3 3 AM EDT 12/12/2024 10:35 AM EDT Narrative [place] - 12/14/2024 12:07 AM EDT N N ULTRASOUND [id number] 3 17 N 1 Y 165 N N N N N White/ us Luis Fernando Tari DO LAB BLOOD ORDERABLES Final Resul t [facility] * RECURRENT VAGINITIS (HTRX) (12/12/2024 9:24 AM EDT) ATOPOBIUM VAGINAE 0 19.961 - 24.689 ppm 12/13/2024 8:06 AM EDT [facility] ATOPOBIUM VAGINAE Not Detected 19.961 - 24.689 ppm 12/13/2024 8:06 AM EDT [facility] BVAB 2,3 (BACTERIAL VAGINOSIS ASSOCIATED BACTERIA 2, 3); MOBILUNCUS SPP 0 19.961 - 24.689 ppm 12/13/2024 8:06 AM EDT [facility] BVAB 2,3 (BACTERIAL VAGINOSIS ASSOCIATED BACTERIA 2, 3); MOBILUNCUS SPP Not Detected 19.961 - 24.689 ppm 12/13/2024 8:06 AM EDT [facility] BRAYAN ALBICANS, PARAPSILOSIS, TROPICALIS 0 23.000 - 30.347 ppm 12/13/2024 8:06 AM EDT [facility] BRAYAN ALBICANS, PARAPSILOSIS, TROPICALIS Not Detected 23.000 - 30.347 ppm 12/13/2024 8:06 AM EDT [facility] BRAYAN GLABRATA 0 23.000 - 31.618 ppm 12/13/2024 8:06 AM EDT [facility] BRAYAN GLABRATA Not Detected 23.000 - 31.618 ppm 12/13/2024 8:06 AM EDT [facility] BRAYAN KRUSEI 0 23.000 - 30.873 ppm 12/13/2024 8:06 AM EDT [facility] BRAYAN KRUSEI Not Detected 23.000 - 30.873 ppm 12/13/2024 8:06 AM EDT [facility] CHLAMYDIA TRACHOMATIS 0 23.000 - 31.586 ppm 12/13/2024 8:06 AM EDT [facility] CHLAMYDIA TRACHOMATIS Not Detected 23.000 - 31.586 ppm 12/13/2024 8:06 AM EDT [facility] GARDNERELLA VAGINALIS 0 19.961 - 24.689 ppm 12/13/2024 8:06 AM EDT [facility] GARDNERELLA VAGINALIS Not Detected 19.961 - 24.689 ppm 12/13/2024 8:06 AM EDT [facility] MEGASPHAERA (TYPES 1, 2) 0 19.961 - 24.689 ppm 12/13/2024 8:06 AM EDT [facility] MEGASPHAERA (TYPES 1, 2) Not Detected 19.961 - 24.689 ppm 12/13/2024 8:06 AM EDT [facility] NEISSERIA GONORRHOEAE 0 23.000 - 32.587 ppm 12/13/2024 8:06 AM EDT [facility] NEISSERIA GONORRHOEAE Not Detected 23.000 - 32.587 ppm 12/13/2024 8:06 AM EDT [facility] TRICHOMONAS VAGINALIS 0 23.000 - 31.995 ppm 12/13/2024 8:06 AM EDT [facility] TRICHOMONAS VAGINALIS Not Detected 23.000 - 31.995 ppm 12/13/2024 8:06 AM EDT [facility] MYCOPLASMA GENITALIUM 0 19.961 - 24.689 ppm 12/13/2024 8:06 AM EDT [facility] MYCOPLASMA GENITALIUM Not Detected 19.961 - 24.689 ppm 12/13/2024 8:06 AM EDT [facility] Tissue 12/12/2024 9:24 AM EDT 12/13/2024 2:19 AM EDT us Luis Fernando Marc DO LAB BLOOD ORDERABLES Final Resul t [facility] [address] [address] from Last 3 Months Additional Health Concerns Active Problems Noted Date Diagnosed Date OB Reminders 12/12/2024 Insurance [employer]
--- OUTSIDE RECORDS SUMMARY | 2025-02-08 10:03 | XMS_ITS | Encounter Summary ---
Author Organization [facility] Address [address] [place] [address] Care Team Providers Care Decal Transferrer Name Role Phone Unavailable Primary Care Provider Unavailabl e Encounter Details Date Type Department Care Team (Late st Contact Info) Description 02/01/2025 Clinisync Result Encounter [facility] External Department Unsolicited Luis Fernando Marc DO [address], [id number] Social History Tobacco Use Types Packs/Day Years [...] Ancillary Procedure [facility] [address] [place] [phone] 03/01/2025 10:40 AM EST Routine [facility] [address] [place] [address] Luis Fernando Marc DO [address] [place] [address] documented as of this encounter Goals Goal Patient Goal Type Associated Problems Recent Progress Patient-Stated? Author Reminders Care Plan OB Reminders Elissa Daniels LPN documented as of this encounter Procedures Procedure Name Priority Date/Time Associated Diagnosis Comments US OB INCOMPLETE ANATOMY 02/01/2025 7:56 AM EDT documented in this encounter Results * US OB INCOMPLETE ANATOMY (02/01/2025 7:56 AM EDT) Anatomical Region Laterality Modality Other 02/01/2025 7:56 AM EDT Narrative 02/01/2025 7:[place] [address] Ultrasound Report Signed Patient: DARIEN JIMENEZ MR#: [id number] : 2000 Acct:[id number] Age/Sex: 24 / F ADM Date: 01/31/25 Loc: US Attending Dr: Luis Fernando Marc D.O. Ordering Physician: Luis Fernando Marc D.O. Date of Service: 01/31/25 Procedure(s): US OB incomplete anatomy Accession Number(s): [id number] cc: Steffany Metcalf M.D.; Luis Fernando Marc D.O. [place] [id number] Patient Name: DARIEN JIMENEZ MRN: [id number] date: 2000 Sex: F Assigned Patient Location: US Current Patient Location: Accession/Order Number: [id number] Exam Date: 01/31/2025 13:50 Report Date: 02/01/2025 [...] Mims M.D. 02/01/2025 7:56 AM Dictation Location: [place] [address] Electronically authenticated by: [id number] Y Date: 02/01/2025 07:56 Dictated By: Rahel Mims M.D. Signed By: 02/01/25 0758 DD/ 0756 TD/TT: Coordinating Producer: Procedure Note Radiology, Radiologist, MD - 02/01/2025 [place] [address] Ultrasound Report Signed Patient: DARIEN JIMENEZ MMR#: [id number] : 2000Acct:[id number] Age/Sex: 24 / FADM Date: 01/31/25 Loc: US Attending Dr: Luis Fernando Marc D.O. Ordering Physician: Luis Fernando Marc D.O. Date of Service: 01/31/25 Procedure(s): US OB incomplete anatomy Accession Number(s): [id number] cc: Steffany Metcalf M.D.; Luis Fernando Marc D.O. The [place] [address] Patient Name: DARIEN JIMENEZ MRN: [id number] date: 2000 Sex: F Assigned Patient Location: US Current Patient Location: Accession/Order Number: [id number] Exam Date: 01/31/2025 13:50 Report Date: 02/01/2025 [...] Mims M.D. 02/01/2025 7:56 AM Dictation Location: [place] [address] Electronically authenticated by: [id number] Y Date: 7:56 Dictated By: Rahel Mims M.D. Signed By:02/01/25 0758 DD/ 0756 TD/TT: Coordinating Producer: us Luis Fernando Tari DO [facility] Final Result documented in this encounter Visit Diagnoses Not on filedocumented in this encounter Additional Health Concerns Active Problems Noted Date Diagnosed Date OB Reminders 12/12/2024 documented as of this encounter
--- OUTSIDE RECORDS SUMMARY | 2025-02-08 10:03 | XMS_ITS | Clinical Summary ---
Author Organization [facility] Address [address] [place] [address] Care Team Providers Care Rubber Calender Helper Name Role Phone Unavailable Primary Care Provider Unavailabl e Social History Tobacco Use Types Packs/Day Years Used Date Smoking Tobacco: Never Assessed Comments Unknown Sex and Gender Information Value Date Recorded Sex Assigned at Not on file Legal Sex Female 12:22 AM EDT Gender Identity Not on file Sexual Orientation Not on file Last Filed Vital Signs Vital Sign Reading Time Taken Comments Blood Pressure 129/84 06/09/2019 3:21 PM EST Pulse 86 06/09/2019 3:21 PM EST Temperature - - Respiratory Rate - - Oxygen Saturation 99% 06/09/2019 3:21 PM EST Inhaled Oxygen Concentration - - Weight 61.2 kg (135 lb) 08/21/2019 10:02 AM EDT Height 162.6 cm (5' 4 ) 08/21/2019 10:01 AM EDT Body Mass Index 23.17 08/21/2019 10:01 AM EDT Plan of Treatment Not on file
--- OUTSIDE RECORDS SUMMARY | 2025-02-08 10:03 | XMS_ITS | Encounter Summary ---
Author Organization [facility] Address [address] [place] [address] Care Team Providers Care Pizza Delivery Driver Name Role Phone Unavailable Primary Care Provider Unavailabl e Encounter Details Date Type Department Care Team (Latest Contact Info) Description 02/07/2025 Travel Social History Tobacco Use Types Packs/Day [...] EST Ancillary Procedure [facility] [address] [place] [place] [phone] 03/01/2025 10:40 AM EST Routine [facility] [address] [place] [phone] Eric Marc DO [address], [place] [phone] documented as of this encounter Goals Goal Patient Goal Type Associated Problems Recent Progress Patient-Stated? Author Reminders Care Plan OB Reminders No Elissa Olvera LPN documented as of this encounter Visit Diagnoses Not on filedocumented in this encounter Additional Health Concerns Active Problems Noted Date Diagnosed Date OB Reminders 12/12/2024 documented as of this encounter
[2025-02-08 11:16] LABS: Hematocrit 36.5 % (36.0-48.0); Hemoglobin 12.6 g/dL (12.0-16.0); Immature Granulocytes Abs Auto 0.03 10^3/uL (0.00-0.03); Immature Granulocytes Pct Auto 0.3 % (0.0-0.5); Lymphocytes Absolute Auto 1.6 10^3/uL (1.2-3.8); Mean Corpuscular HGB Conc 34.5 g/dL (29.9-35.2); Mean Corpuscular Hemoglobin 30.9 pg (26.7-34.0); Mean Corpuscular Volume 89.5 fL (81.0-99.0); Platelet Count 213 10^3/uL (150-450); Red Blood Count 4.08 10^6/uL (4.20-5.40); White Blood Count 9.7 10^3/uL (4.0-11.0)
[2025-02-08 11:58] LABS: Glucose 1 Hour 82 mg/dL (<130)
== END 2025-02-08 09:58 | disposition home or self-care (01) ==
LOC: LAB 10:00
PROVIDERS: PCP Family Medicine; Visit Provider Obstetrics & Gynecology
DX: Z13.1 Encounter for screening for diabetes mellitus (principal); Z3A.25 25 weeks gestation of pregnancy
CPT/HCPCS: 36415; 82950; 85025

== ENCOUNTER 2025-04-25 11:00 | Outpatient (OUT) | payer OTHER, SELFPAY ==
--- OUTSIDE RECORDS SUMMARY | 2025-04-11 13:10 | XMS_ITS | Encounter Summary ---
Author Organization [facility] Address [address] [place] [address] Care Team Providers Care Banana Ripening Room Supervisor Name Role Phone Unavailable Primary Care Provider Unavailabl e Reason for Visit * ReasonCommentsRoutine Visit Encounter Details DateTypeDepartmentCare Team (Latest Contact Info)Waxegaqqrtw46/17/2025 1:10 PM ESTRoutine [facility] [address] [place] [id number] Eric Marc DO [address] [place], [facility]11 Third trimester ([facility]); 34 weeks gestation of ([facility]); Heartburn during in third trimester ([facility]) Social History Tobacco UseTypesPacks/DayYears UsedDateSmoking Tobacco: NeverSmokeless Tobacco: NeverAlcohol UseStandard Drinks/WeekCommentsYes0 (1 standard drink = 0.6 oz pure alcohol)Estimated Date of BaglgvjyQijaqnxpEdx90/24/2026ased on UltrasoundSex and Gender InformationValueDate RecordedSex Assigned at BirthNot on fileLegal SszDnsmxw18/15/2023 7:21 PM EDTGender IdentityNot on fileSexual OrientationNot on filedocumented as of this encounter Last Filed Vital Signs Vital SignReadingTime TakenCommentsBlood Uvbdbytr714/6404/11/2025 1:06 PM EST Pulse--Temperature--Respiratory Rate--Oxygen Saturation--Inhaled Oxygen Concentration--Rrzfqc38.5 kg (184 lb)04/11/2025 1:06 PM ESTHeight--Body Mass Index31.58008/18/2024 10:59 AM EDTdocumented in this encounter Progress Notes * Rahel Davalos, PRINTMAKER - 04/11/2025 1:10 PM EST Reason for Appointment: Patient ID: Darien Yang is a 24 y.o. female who presents for Routine Visit Patient presents today for Return OB appointment. MEDICATIONS Current Outpatient Medications Medication Instructions docusate sodium (COLACE) 100 mg, Oral, 2 times daily PRN pantoprazole (PROTONIX) 40 mg, Oral, Daily before breakfast, Do not crush, chew, or split. Vit-Fe Fumarate-FA ( Vitamins) 28-0.8 MG tablet 1 tablet, Oral, Daily ALLERGIES No Known Allergies PROBLEMS Active Ambulatory Problems Diagnosis Date Noted [place]merz 08/18/2024 Irregular menstrual cycle 08/18/2024 Well woman exam with routine gynecological exam 08/18/2024 Impetigo 12/20/2024 Resolved Ambulatory Problems Diagnosis Date Noted No Resolved Ambulatory Problems Past Medical History: Diagnosis Date Anemia 2019 GERD (gastroesophageal reflux disease) History of transfusion HISTORY PAST MEDICAL HISTORY SOCIAL HISTORY Past Medical History: Diagnosis Date Anemia 2020 GERD (gastroesophageal reflux disease) History of transfusion Social History Tobacco Use Smoking status: Never Smokeless tobacco: Never Substance Use Topics Alcohol use: Yes Drug use: Never FAMILY HISTORY Family History Problem Relation Name Age of Onset Diabetes Maternal Grandfather Horace yang Heart disease Maternal Grandfather Horace yang Heart disease Maternal Grandmother Saidaalejandra nichole Heart disease Paternal Grandmother Pascale yang SURGICAL HISTORY History reviewed. No pertinent surgical [...] nursing note reviewed. Exam conducted with a knife cutter present. Vitals: Estimated body mass index is 31.58 kg/m?? as calculated from the following: Height as of 08/18/24: 5' 4 . Weight as of this encounter: 184 lb. BP: 102/64 Patient's last menstrual period was 08/04/2024. Assessment/Plan ICD-10-CM 1. Third trimester ([facility]) Z34.93 2. 34 weeks gestation of ([facility]) Z3A.34 POCT urinalysis dipstick manually resulted Assessment/Plan Return OB: Patient presents today for a routine obstetrics appointment. Patient is currently 34w4d . Patient states she is doing well but has complaints of being tired due to current . Pt has complaints of heartburn, protonix is not working. Rx for nexium faxed to pharmacy. Patient has verbalizes frequent movement. labor precautions was discussed/given and patient was instructed to perform kick counts three times a day. Orders Placed This Encounter Procedures POCT urinalysis dipstick manually resulted Follow Up: Patient is to return to office in 2 week for routine OB appointment. Documented by Rahel Davalos LPN on behalf of: Eric Marc DO documented in this encounter Plan of Treatment DateTypeDepartmentCare Team (Latest Contact Info)Xbvlshasyvq57/07/2026 3:00 PM ESTRoutine [facility] [address] [address] Eric Marc DO [address] [place] [address] documented as of this encounter Goals GoalPatient Goal TypeAssociated ProblemsRecent ProgressPatient-Stated?Author Reminders Care PlanOB RemindersNoSpitElissa butler LPNdocumented as of this encounter Procedures Procedure NamePriorityDate/TimeAssociated DiagnosisCommentsPOCT URINALYSIS KIUXRROOBicvput58/17/2025 1:16 PM EST 34 weeks gestation of ([facility]) documented in this encounter Results * POCT urinalysis dipstick manually resulted (04/11/2025 1:16 PM EST)Component ValueRef RangeTest MethodAnalysis TimePerformed AtPathologist SignatureColor, UAYellowClarity, UAClearGlucose, UANegativeNegative - 2000(110) ++++ mg/dL Bilirubin, UANegativeNegative - 4(70) +++ mg/dLKetones, UANegativeNegative - 160(16) ++++ mg/dLSpec Grav, UA1.0051 - 1.03Blood, UANegativeNegative - 50 Iam/mcLpH, UA7.05 - 9Protein, UANegativeNegative - 2000(20) ++++ mg/dL Urobilinogen, UA1.00.2 - 12 mg/dLLeukocytes, UANegativeNegative - 500+++ Zakia/mcLNitrite, UANegativeNegative - PositiveSpecimen (Source)Anatomical Location / LateralityCollection Method / VolumeCollection TimeReceived Time Urine04/11/2025 1:16 PM EST Narrative Authorizing ProviderResult TypeResult StatusCorey Tari DOPOINT OF CARE TEST ENTER/EDIT ORDERABLESFinal Result documented in this encounter Visit Diagnoses Diagnosis Third trimester ([facility]) state, incidental 34 weeks gestation of ([facility]) Heartburn during in third trimester ([facility]) documented in this encounter Additional Health Concerns Active ProblemsNoted DateDiagnosed DateOB Cxfmlrixx08/19/2025 documented as of this encounter
--- OUTSIDE RECORDS SUMMARY | 2025-04-25 10:00 | XMS_ITS | Encounter Summary ---
Author Organization [facility] Address [address] [place] [address] Care Team Providers Care Product Management Internship Name Role Phone Unavailable Primary Care Provider Unavailabl e Reason for Visit * ReasonCommentsRoutine Visit Encounter Details DateTypeDepartmentCare Team (Latest Contact Info)Bsvleqxuggu04/31/2025 10:00 AM ESTRoutine [facility] [address] [place] [address] Comfort Jeronimo, OPERATIONS ACCOUNTANT [address] [place] [address] Gastroesophageal reflux in ([facility]) (Primary Dx); Third trimester ([facility]); 36 weeks gestation of ([facility]); Heartburn during in second trimester ([facility]); Anemia, unspecified type Social History Tobacco UseTypesPacks/DayYears UsedDateSmoking Tobacco: NeverSmokeless Tobacco: NeverAlcohol UseStandard Drinks/WeekCommentsYes0 (1 standard drink = 0.6 oz pure alcohol)Estimated Date of FzaziowcGxsnyatiZae94/24/2026Based on UltrasoundSex and Gender InformationValueDate RecordedSex Assigned at BirthNot on fileLegal MsnUrhuag09/15/2023 7:21 PM EDTGender IdentityNot on fileSexual OrientationNot on filedocumented as of this encounter Last Filed Vital Signs Vital SignReadingTime TakenCommentsBlood Euqwuolp982/7804/25/2025 10:27 AM EST Pulse--Temperature--Respiratory Rate--Oxygen Saturation--Inhaled Oxygen Concentration--Xvjxjf44 kg (185 lb 1.9 oz)04/25/2025 10:27 AM ESTHeight--Body Mass Index31.78008/18/2024 10:59 AM EDTdocumented in this encounter Plan of Treatment DateTypeDepartmentCare Team (Latest Contact Info)Qgmtdoujide78/07/2026 3:00 PM ESTRoutine [facility] [address] [place] [phone] Eric Marc DO [address] [place], [place] [address] NameTypePriorityAssociated DiagnosesOrder ScheduleCULTURE, GROUP B STREP WITH SUSCEPTIBLITYLabRoutine Third trimester ([facility]) Expected: 04/25/2025, Expires: 6CBC and differentialLabRoutine Anemia, unspecified type Ordered: 04/25/2025documented as of this encounter Goals GoalPatient Goal TypeAssociated ProblemsRecent ProgressPatient-Stated?Author Reminders Care PlanOB RemindersNoSpitElissa butler LPNdocumented as of this encounter Procedures Procedure NamePriorityDate/TimeAssociated DiagnosisCommentsPOCT URINALYSIS VSCUDOIFUbvmwez18/31/2025 10:48 AM EST Third trimester ([facility]) 36 weeks gestation of ([facility]) documented in this encounter Results * (ABNORMAL) POCT urinalysis dipstick manually resulted (04/25/2025 10:48 AM EST)ComponentValueRef RangeTest MethodAnalysis TimePerformed AtPathologist SignatureColor, UAYellowClarity, UAClearGlucose, UANegativeNegative - 2000(110) ++++ mg/dLBilirubin, UANegativeNegative - 4(70) +++ mg/dLKetones, UA NegativeNegative - 160(16) ++++ mg/dLSpec Grav, UA1.0151 - 1.03Blood, UA NegativeNegative - 50 Iam/mcLpH, UA6.05 - 9Protein, UANegativeNegative - 2000(20) ++++ mg/dLUrobilinogen, UA1.00.2 - 12 mg/dLLeukocytes, UAPositive Negative - 500+++ Zakia/mcLNitrite, UANegativeNegative - PositiveSpecimen (Source)Anatomical Location / LateralityCollection Method / VolumeCollection TimeReceived RsfiYzvap77/31/2025 10:48 AM EST Narrative Authorizing ProviderResult TypeResult StatusComfort Jeronimo NPPOINT OF CARE TEST ENTER/EDIT ORDERABLESFinal Result documented in this encounter Visit Diagnoses Diagnosis Gastroesophageal reflux in ([facility])- Primary Third trimester ([facility]) state, incidental 36 weeks gestation of ([facility]) Heartburn during in second trimester ([facility]) Anemia, unspecified type documented in this encounter Additional Health Concerns Active ProblemsNoted DateDiagnosed DateOB Edxhojqxr25/19/2025 documented as of this encounter
--- OUTSIDE RECORDS SUMMARY | 2025-04-25 11:03 | XMS_ITS | CCD ---
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 HealthcareBOX2 10/14/24[facility] CLINISYNCCox NorthHCG ( test) Ql (U)on 65-56-4765Wheuqmhmoggkti and review of laboratory resultsAbnormalCox NorthPreg Test, UrPositive NegativeFirstHealth Moore Regional HospitalUS OB TRANSVAGINALon 55-87-3435LJ OB TRANSVAGINALEXAM: US OB TRANSVAGINAL HISTORY: Dating. Unknown LMP. Beta HCG on 09/15/2024 was 705. G1. COMPARISON: None available. TECHNIQUE: Two-dimensional transvaginal grayscale, color and spectral Doppler ultrasound imaging ofthe pelvis was performed. FINDINGS: The uterus demonstrates [...] 1.6 cm subchorionic hemorrhage visualized within the loweruterine segment. A yolk sac is visualized. IMPRESSION: 1. Single, live intrauterine gestation. Today's ultrasound measurements correlate with a gestational age of 8 weeks 6 days (+/- 6 days). WENDY by today's ultrasound is 05/19/2025. 2. Lower uterine segment subchorionic hemorrhage. 3. Normal color Doppler evaluation of the bilateral ovaries. Interpreted by: Electronically signed by SOLITARIO CONTRERAS II, MD, PHD at 16-Oct-2024 08:55:44 AM [facility] TeleradiologyNormalNot AvailableComment on above:Order Comment: US OB TRANSVAGINAL No LMP recorded.Urinalysis macro (dipstick) panel (U)on 42-22-3234Esmyjihss, UA NegativeNegative - 4(70) +++ mg/dLNOMS HealthcareBlood, UAPositiveNegative - 50 Iam/mcLNOMS HealthcareComment on above:traceClarity, UAClearNOMS Healthcare Color, UAYellowNOMS HealthcareGlucose, UANegativeNegative - 2000(110) ++++ mg/dL NOMS HealthcareKetones, UANegativeNegative - 160(16) ++++ mg/dLNOMS Healthcare Leukocytes, UAPositiveNegative - 500+++ Zakia/mcLNOMS HealthcareComment on above: smallNitrite, UANegativeNegative - PositiveNOMS HealthcarepH, UA6.55 - 9NOMS HealthcareProtein, UANegativeNegative - 2000(20) ++++ mg/dLNOMS HealthcareSpec Grav, UA1.021 - 1.03NOMS HealthcareUrobilinogen, UA0.20.2 - 12 mg/dLNOMS HealthcareNOMS HealthcareTBH PREG QUANT HCGon 02-95-0433OII ZQWWYHWLXUBM576 mIU/mLNOMS HealthcareComment on above:5-50 0.2-1 WEEK 50-500 1-2 WEEKS 100-5,000 2-3 WEEKS 500-10,000 3-4 WEEKS 1,000-50,000 4-5 WEEKS 10,000-100,000 5-6 WEEKS 15,000-200,000 6-8 WEEKS 10,000-100,000 2-3 MONTHS CLINISYNCNOMS HealthcareIGP,APTIMA HPV,AGE GDLNon 65-93-0316IIR SOCORRO ACOG TESTINGNote.[facility] HealthcareComment on above:TESTS RESULT FLAG UNITS REF RANGE LAB Clinician Provided Cytology Information Source.............Cervix;Endocervix No. of containers..01 ThinPrep Vial Age Yandel NAGEL Cheli... FLAG LEGEND: L-Low Normal,H-High Normal,LL-Alert Low,HH-Alert High <-Panic Low,>-Panic High,A-Abnormal,AA-Critical Abnormal Performed at: 01 =[facility] [address] Bebe Pleitez MD, IGP, RFX APTIMA HPV ASCUNote.[facility] HealthcareComment on above:TESTS RESULT FLAG UNITS REF RANGE LAB DIAGNOSIS: 02 NEGATIVE FOR INTRAEPITHELIAL LESION OR MALIGNANCY. Specimen adequacy: 02 Satisfactory for evaluation. Endocervical and/or squamous metaplastic cells (endocervical component) are present. Performed by: 02 Paulo Loya Auto Air Conditioning Apprentice (ASCP) . 02 Note: Note 02 The [...] Low,>-Panic High,A-Abnormal,AA-Critical Abnormal Performed at: [address] [facility] [address] [address] Bebe Pleitez MD, Performed at: =G - [facility] [address] [id number] Engagement Executive: Bebe Pleitez MD, Phone: [phone] Performed at: - [facility] [id number] Engagement Executive: Bebe Pleitez MD, Phone: [phone] BRUSH-SPATULA CERVIX ENDOCERVIX CLINISYNCNOThe Rehabilitation InstituteCovid-19 PCR (CVDTB)on 48-37-7219AEYI-CoV-2 (COVID-19) RNA SHANTHI+probe Ql (Unsp spec)Not detectedNormalNOT DETECTEDThe [facility] Comment on above:Result Comment: This test is not yet approved or cleared by the [place] FDA. When there are no FDA-approved or cleared tests available, and other criteria are met, FDA can make tests available under an emergency access mechanism called an Emergency Use Authorization (EUA). The EUA for this test is supported by the Bridge Maintainer of Health and Human Service's (HHS's) declaration that circumstances exist to justify the emergency use of in vitro diagnostics for the detection and/or diagnosis of the virus that causes COVID- 19. This EUA will remain in effect (meaning [...] of clinical signs and symptoms consistent with SARS-CoV-2.Performed By: #### CVDTBH #### [facility] [address] [place] [address] Dr. Chitra Romano 50-87-3354EAXLZERWPgsxno ([place]) DARIEN YANG ([id number]) 1 F Date Time Provider Department 09/12/19 DOUG OLVERA During your visit today, we recorded the following information about you: Allergies As of Date: 09/12/2019 (No Known Allergies) Date Reviewed: 06/23/2019 Reviewed by: Swathi Keyes - Fully Assessed Reason for Visit: Refill Request [94] Order(s):cyanocobalamin (VITAMIN B-12) 1,000 mcg/mLInject 1 mL intramuscularly [...] Encounter Status:Closed by DOUG OLVERA MD on 09/13/19[facility]HealthCNOVSPon 38-25-1545VXYOMODywgs (SP) Office ([place]) DARIEN YANG ([id number]) 1 F Date Time Provider Department 06/23/19 [...] mononucleosis. Initial Visit, May 24, 2019: Darien Yang presents today at the request of Dr. [...] intrinsic factor deficiency Doug Olvera MD CC: Dee Rodriguez MD [address] [facility] [address] Referring Provider: DOUG OLVERA [[id number]] Allergies As of Date: 06/23/2019 (No Known Allergies) Date Reviewed: 06/23/2019 Reviewed by: Swathi Keyes - Fully Assessed Reason for Visit: Anemia [6] Cmt: follow up lab Primary Visit Diagnosis:Iron deficiency anemia due to chronic blood loss [D50.0] Other Visit Diagnosis:Vitamin B12 deficiency anemia due to intrinsic factor deficiency [D51.0] Order(s):cyanocobalamin (VITAMIN B-12) 1,000 mcg/mL solnInject 1 mL [...] Encounter Status:Closed by DOUG OLVERA MD on 06/23/19[facility] 84-24-8220YJKBHDVRYSH ID: [id number] Author: Doug Olvera Service: ? Author Type: [...] mononucleosis. Initial Visit, May 24, 2019: Darien Yang presents today at the request of Dr. [...] intrinsic factor deficiency Doug Olvera MD CC: Dee Rodriguez MD [address] [facility] [address]FkrasiCpnjufvklSelect Medical Specialty Hospital - ColumbusCNOVSPon 89-13-7172DAXQZJ Visit (SP) Office ([place]) DARIEN YAGN ([id number]) 1 F Date Time Provider Department 05/24/19 4:15 PM DOUG OLVERA During your visit today, we recorded the following information about you: Temperature Pulse Respiration Blood pressure 97.3 degrees 79/minute 18/minute 127/73 Weight Height Last Period 61 kg 1.61 m 05/10/19 Doug Olvera MD 05/25/2019 12:15 PM Signed Consultation requested by Dr. Rodriguez for an opinion regarding Ms. Darien Yang, and my final recommendations will be communicated [...] results of GI workup and biopsies from [place]. Doug Olvera MD CC: severe Iron deficiency anemia HPI: Darien Yang presents today at the request of Dr. [...] (rash, new or changing mole, new growth) HEMATOLOGIC/LYMPHATIC/IMMUNOLOGIC:Negative for prolonged bleeding, bruising easily or swollen [...] VITAMIN B12 BLOOD, FOLATE SERUM CC: SELF Dee Rodriguez MD [address] [facility] [address] Doug Olvera MD Referring Provider: SELF [[id number]] Allergies As of Date: 05/24/2019 (No Known Allergies) Date Reviewed: 05/24/2019 Reviewed by: Tawny Westbrook - Fully Assessed Reason for Visit: Anemia [6] Cmt: new patient consult Primary Visit Diagnosis:Iron deficiency anemia due to chronic blood loss [D50.0] Order(s):CBC + DIFF (FOR REMOTE [facility] USE) [SQRCBCDF] Order #: [id number] FUTURE COMP METABOLIC PANEL [SQCMP] Order #: [id number] FUTURE IRON + TIBC [SQIRON] Order #: [id number] FUTURE FERRITIN BLD [SQFERR] Order #: [id number] FUTURE RETIC COUNT [SQRETIC] Order #: [id number] FUTURE VITAMIN B12 BLOOD [SQB12] Order #: [id number] FUTURE FOLATE SERUM [SQSERFOL] Order #: [id number] FUTURE Disposition: Return in about 4 weeks [...] Encounter Status:Closed by DOUG OLVERA MD on 05/25/19[facility] 68-57-4420DHMTOHBCPTW ID: [id number] Author: Doug Olvera Service: ? Author Type: Physician Type: Progress Notes Filed: 05/25/2019 12:15 PM Note Text: Consultation requested by Dr. Rodriguez for an opinion regarding Ms. Darien Yang, and my final recommendations will be communicated [...] results of GI workup and biopsies from [place]. Doug Olvera MD CC: severe Iron deficiency anemia HPI: Darien Yang presents today at the request of Dr. [...] (rash, new or changing mole, new growth) HEMATOLOGIC/LYMPHATIC/IMMUNOLOGIC:Negative for prolonged bleeding, bruising easily or swollen [...] diagnosis) Plan: CBC + DIFF (FOR REMOTE [facility] USE), COMP METABOLIC PANEL, IRON + TIBC, FERRITIN BLD, RETIC COUNT, VITAMIN B12 BLOOD, FOLATE SERUM CC: SELF Dee Rodriguez MD [address] [facility] [address] Doug Olvera MDNormalCAdams County Regional Medical Center Vital Signs Date TimeVital SignValuePerforming PlvolxjabHnvtjfrx51-13-2486 10:41-0500Body mass index (BMI) [Ratio]30.86 kg/s5Rkrdn Tari DO Work Phone: [phone] [place], [place] [address]Oabyjmkizx21-44-3564 10:41-0500Body .56 kgCorey Tari DO Work Phone: [phone] [place], [place] [address]Vjrzpmhedx88-62-9089 10:41-0500Diastolic blood rxgebfbk76 mm[Hg]Eric Tari DO Work Phone: [phone] [place], [place] [address]Makxuxquhm91-26-9808 10:41-0500Systolic blood lounslec842 mm[Hg]Eric Tari DO Work Phone: [phone] [place], [place] [address]Fltlcojewi52-43-3093 09:04-0400Body mass index (BMI) [Ratio]30.25 kg/f9Lqkxu Tari DO Work Phone: [phone] [place], [place] [address]Vlkmjetvho79-55-3498 09:04-0400Body .95 kgCorey Tari DO Work Phone: [phone] [place], [place] [address]Pschdzqzvn63-41-0804 09:04-0400Diastolic blood hcmmiarv62 mm[Hg]Eric Tari DO Work Phone: [phone] [place] [address]-16-2025 09:04-0400Systolic blood ufxdnozw863 mm[Hg]Eric Tari DO Work Phone: [phone] [place], [place] [address]Qwkvsgwqqb22-83-7766 10:51-0400Body mass index (BMI) [Ratio]29.15 kg/m2Judith SOSA Work Phone: [phone] [place], [place] [address]Khbhnlqebe71-59-4909 10:51-0400Body pzoprx49.02 kgJudith Mesfin SOSA Work Phone: [phone] [place], [place] [address]Mgcwtfjock06-43-4614 10:51-0400Diastolic blood msmaznmv81 mm[Hg]Judith Mesfin SOSA Work Phone: [phone] [place], [place] [address]Scqdfkufvl92-01-7001 10:51-0400Systolic blood eemdulqh175 mm[Hg]Judith Mesfin SOSA Work Phone: [phone] [place], [place] [address]Sxmnrhgfft49-02-7460 09:31-0400Body mass index (BMI) [Ratio]28.46 kg/s6Xpkei Tari DO Work Phone: [phone] [place], [place] [address]Bambjndxtc72-94-4640 09:31-0400Body apqxoq87.21 kgCorey Tari DO Work Phone: [phone] [place], [place] [address]Pginarxdwb36-64-3055 09:31-0400Diastolic blood vuxnjutc92 mm[Hg]Eric Tari DO Work Phone: [phone] [place], [place] [address]Tpozegonun24-07-0663 09:31-0400Systolic blood wayvrtgb204 mm[Hg]Eric Tari DO Work Phone: [phone] [place], [place] [address]Pdblfpubln59-25-3777 09:08-0400Body mass index (BMI) [Ratio]27.31 kg/d8Ioriz Tari DO Work Phone: [phone] [place], [place] [address]Tyxcssznoq49-83-5679 09:08-0400Body .18 kgCorey Tari DO Work Phone: [phone] [place], [place] [address]Swnjgkgwnh58-08-7675 09:08-0400Diastolic blood wcbhlfom90 mm[Hg]Eric Tari DO Work Phone: [phone] [place], [place] [address]Fvycnchlhl03-37-6263 09:08-0400Systolic blood fuflhcrm605 mm[Hg]Eric Tari DO Work Phone: [phone] [place], [place] [address]Plmiyxhbsq58-46-8460 09:26-0400Body mass index (BMI) [Ratio]27.64 kg/y4QsextCarthage Area Hospital06-20-2025 09:26-0400Body weight 73.03 kgCarthage Area Hospital06-20-2025 09:26-0400Diastolic blood gygtmxzb41 mm[Hg][facility]06-20-2025 09:26-0400Systolic blood jmyppqia438 mm[Hg][facility]04-25-2025 10:59-0400Body xjkyjr477.6 cmCorey Tari DO Work Phone: NOThe Rehabilitation InstituteIslihsnpei38-41-3970 10:59-0400Body mass index (BMI) [Ratio]27.12 kg/d8Nirbl Tari DO Work Phone: [phone] Rehabilitation InstituteNjdrogkjxr11-81-8220 10:59-0400Body yzjqlv15.67 kgCorey Tari DO Work Phone: [phone] NorthAwhmwohcdx24-75-6956 10:59-0400Diastolic blood zhnedooe43 mm[Hg]Eric Tari DO Work Phone: Cox NorthZwgsvbrawb17-28-0126 10:59-0400Systolic blood gonzefsh975 mm[Hg]Eric Tari DO Work Phone: [facility] Encounters Encounter DateEncounter TypeCare ProviderFacilityStart: 03-01-2025 End: 67-85-7581Eofcyico flow sheetCorey Tari DO Work Phone: NOMS Pedro OBGYNComment on above:Third trimester ([facility]); 28 weeks gestation of ([facility])Start: 03-01-2025 End: 84-08-6883aspieutgqyAVPWK FAZIONot AvailableStart: 02-08-2025 End: 94-78-5877Txdwhm flowsheetCorey Tari DO Work Phone: NOMS [place] OBGYNStart: 02-08-2025 End: 24-66-2276Ryimvx flowsheetCorey Tari DO Work Phone: NOM[facility] Pedro OBGYNStart: 02-08-2025 End: 17-76-4144Sduxvxcp flow sheetCorey Tari DO Work Phone: NO Pedro OBGYNComment on above:Diabetes mellitus screening; Second trimester ([facility]); 25 weeks gestation of ([facility]); Size of fetus inconsistent with dates, antepartum ([facility])Start: 02-08-2025 End: 53-18-7249mqqfdavmguSYURY FAZIONot AvailableStart: 02-01-2025 End: 17-77-5928Ljtphlvzc Result EncounterCorey Tari DO Work Phone: noms External Department UnsolicitedStart: 02-01-2025 End: 38-53-2923Xmxiqrxvy Result EncounterCorey Tari DO Work Phone: noms External Department UnsolicitedStart: 01-28-2025 End: 49-85-1709svkurnbfsyKNZVUE NO PCPFacility:[address]Mxsiw: 01-28-2025 End: 59-37-6112Etxmewaw Lucy SWANN MD [facility] Start: 01-10-2025 End: 36-22-1503Vougefpn flow sheetJudith SOSA Work Phone: NOMS Pedro OBGYNComment on above:21 weeks gestation of ([facility]); Second trimester ([facility])Start: 01-10-2025 End: 68-91-6392gormxsroskNYO RAMEYNot AvailableStart: 12-12-2024 End: 99-87-3114Bewtyu flowsheetCorey Tari DO Work Phone: noms [place] OBGYNStart: 12-12-2024 End: 81-07-1569Yiblss flowsheetCorey Tari DO Work Phone: noMS [place] OBGYNStart: 12-12-2024 End: 43-64-9817Rvnvjneet Result EncounterCorey Tari DO Work Phone: noms External Department UnsolicitedStart: 12-12-2024 End: 37-54-5256Qabnzmvq Result EncounterCorey Tari DO Work Phone: noms External Department UnsolicitedStart: 12-12-2024 End: 33-26-6466Rcottczf flow sheetCorey Tari DO Work Phone: noms Pedro OBGYNComment on above:17 weeks gestation of ([facility]); Second trimester ([facility]); Screening, , for anatomic survey ([facility]); Exposure to STD; Vaginal discharge; Heartburn during in second trimester ([facility])Start: 12-12-2024 End: 23-59-9638rskcfmfipyOWEPT FAZIONot AvailableStart: 11-09-2024 End: 68-11-8430Aklgdo flowsheetCorey Tari DO Work Phone: noms BCP OBStart: 11-09-2024 End: 33-73-7291Efvqok flowsheetCorey Tari DO Work Phone: NOGP BCP OBStart: 11-09-2024 End: 82-19-1941Einugcdb flow sheetCorey Tari DO Work Phone: noms BCP OBComment on above:12 weeks gestation of ([facility]); First trimester ([facility])Start: 11-09-2024 End: 80-10-0862ugfdqqmkxxAZDDT FAZIONot AvailableStart: 10-14-2024 End: 68-19-3244Wqqehiosh Result EncounterCorey Tari DO Work Phone: noms External Department UnsolicitedStart: 10-14-2024 End: 80-82-8850Fxtwacdik Result EncounterCorey Tari DO Work Phone: noms External Department UnsolicitedStart: 10-13-2024 End: 17-52-8150Qmxvnf outpatient visit 5 minutesFabriceo Nurse Noms Bcp ObNOMS BCP OBComment on above:[place]: 9u6bIqupc: 10-13-2024 End: 15-99-0837ladqwocjdhZEFTZ FAZIONot AvailableStart: 09-12-2024 End: 85-47-6965Zccjfgren Result EncounterCorey Tari DO Work Phone: noMS External Department UnsolicitedStart: 09-12-2024 End: 84-91-1181Imyzpefsk Result EncounterCorey Tari DO Work Phone: noms External Department UnsolicitedStart: 08-18-2024 End: 81-80-5380Ywjerv flowsheetCorey Tari DO Work Phone: noms BCP OBStart: 08-18-2024 End: 26-39-3464Vjzldr flowsheetCorey Tari DO Work Phone: noms BCP OBStart: 08-18-2024 End: 88-50-6092Wawzcjogj Result EncounterCorey Tari DO Work Phone: noms External Department UnsolicitedStart: 08-18-2024 End: 36-09-8345Vplqqio encounter procedureCorey Tari DO Work Phone: noms HealthcareStart: 08-18-2024 End: 35-78-0554Sojmlumn preventive med est patient 18-39 yrsCorey Tari DO Work Phone: noms BCP OBComment on above:Well woman exam with routine gynecological exam; Irregular menstrual cycle; AllegraStart: 08-18-2024 End: 72-78-6697xrsdkivrhiXOMHW FAZIONot AvailableStart: 04-21-2021 End: 51-11-2314rjpigziadsKK URBAN BALLFacility:Q9Ksatw: 04-08-2021 End: 10-85-2378cwktwyzbcbRQUZRM ROSSFacility:R1Ipydd: 08-15-2020 End: 08-40-2149zggryoklmrPN NONE LISTED REQUESTFacility:I0Ygvzr: 07-26-2020 End: 46-86-8553xjbiruvitpAJ NONE LISTED REQUESTFacility:H1 Procedures DateProcedureProcedure DetailPerforming ClinicianStart: 26-24-5006Lmpiw dip stick/tablet rgnt non-auto w/o micrscpCorey Tari DO Work Phone: Start: 60-38-1266Cubjl dip stick/tablet rgnt non-auto w/o micrscpCorey Tari DO Work Phone: Start: 53-68-7674AL OB INCOMPLETE ANATOMYCorey Tari DO Work Phone: Start: 72-41-9931Bgfwr nonstress testCARMELO SWANN MD Start: 46-48-8264Sjvmakzhuk venous blood venipuncture CARMELO SWANN MD Start: 01-28-2025 End: 90-49-1172Xgmlflrxvn venous blood venipunctureCARMELO SWANN MD Start: 87-77-2160Zvrrj dip stick/tablet rgnt non-auto w/o micrscpAmy Mesfin SOSA Work Phone: Start: 45-54-0222HQG, SERUM, OPEN SPINA BIFIDACorey Tari DO Work Phone: Start: 55-44-3382Zjngj dip stick/tablet rgnt non-auto w/o micrscpCorey Tari DO Work Phone: Start: 07-98-7457SYDGMUXCN VAGINITIS (HTRX)Eric Tari DO Work Phone: Start: 46-26-7903Jrrzp dip stick/tablet rgnt non-auto w/o micrscpCorey Tari DO Work Phone: Start: 04-85-3248SEO CBC WITH AUTO DIFFCorey Tari DO Work Phone: Start: 84-06-1279OQI TESTCorey Tari DO Work Phone: Start: 26-50-3042Sgbly dip stick/tablet rgnt non-auto w/o micrscpCorey Tari DO Work Phone: Start: 50-22-0055AIC PREG QUANT HCGCorey Tari DO Work Phone: Start: 82-07-5588HJR,APTIMA HPV,AGE GDLNCorey Tari DO Work Phone: Plan of Treatment DateCare ActivityDetailAuthorStart: 03-14-2025 End: 57-39-8195Qhfokyl encounter vrtojpvxq38/19/2025 2:30 PM EST Routine [facility] MITCHELLN [address] [facility] [place], [id number] Eric Macr, DO [address], [place] [address] N[facility] Pedro OBGYNStart: 03-01-2025 End: 86-17-2409Nnvhddo encounter qeohmaypf85/06/2025 10:40 AM EST Routine [facility]CCURDY [address] [facility] [place] [id number] Eric Marc, DO [address] [place] [address] [facility] Pedro OBGYNStart: 03-01-2025 End: 21-21-4663Xqdrusympyez / ancillary services rdjguoymof67/06/2025 10:00 AM EST Ancillary Procedure NOMRafi MCCURDY [address] [place] [id number] [facility] Pedro OBGYNStart: 02-08-2025 End: 18-58-4141DPL panel - Blood by Automated countCBC Lab Routine Diabetes mellitus screening Expected: 02/08/2025 (Approximate), Expires: 02/08/2026[facility] Work Phone: comment on above:Expected: 02/08/2025 (Approximate), Expires: 02/08/2026Start: 02-08-2025 End: 33-31-9770Cguphuoszhh of glucose 1 hour after glucose challenge for glucose tolerance testGlucose tolerance, 1 hour Lab Routine Diabetes mellitus screening Expected: 02/08/2025 (Approximate), Expires: 02/08/2026N[facility] HealthcareComment on above:Expected: 02/08/2025 (Approximate), Expires: 02/08/2026Start: 02-08-2025 End: 73-76-0543UL for pregnancyUS OB follow up transabdominal approach Imaging Routine Size of fetus inconsistent with dates, antepartum ([facility]) Expected: 02/08/2025, Expires: 06/11/2025NOOK HealthcareComment on above:Expected: 02/08/2025, Expires: 06/11/2025Start: 02-08-2025 End: 48-95-0679Bimogvm encounter procedureNOMS Sánchez OBGYNComment on above: ArrivedStart: 01-10-2025 End: 63-94-6930Pdjuknj encounter uelgblwsq50/17/2025 11:00 AM EDT Routine NOMRafi MCCURDY [address] [place] [phone] Judith Davis PA [address] [place] [address] NOMRafi Sánchez OBGYNStart: 01-10-2025 End: 88-42-2589Qjpciluclchm / ancillary services fvwrlhmnby56/17/2025 10:00 AM EDT Ancillary Procedure RAISSA MCCURDY [address] [place] [phone] NOMS Sánchez OBGYNStart: 12-12-2024 End: 53-56-7721Bmhus fetoprotein, maternalAlpha fetoprotein, maternal Lab Routine 17 weeks gestation of ([facility]) Second trimester ([facility]) Expected: 12/12/2024 (Approximate), Expires: 02/11/2025[facility] Comment on above:Expected: 12/12/2024 (Approximate), Expires: 02/11/2025Start: 12-12-2024 End: 70-51-7068JY for pregnancyUS OB 14+ weeks anatomy scan Imaging Routine Screening, , for anatomic survey ([facility]) Expected: 12/12/2024, Expires: 03/14/2025N[facility] HealthcareComment on above:Expected: 12/12/2024, Expires: 03/14/2025Start: 12-12-2024 End: 28-64-6737Xkkyrub encounter jkimdwwpi63/19/2025 9:20 AM EDT Routine N[facility] Pedro OBGYN [address] [place], [id number] Eric Marc, DO [address] [place] [address] ArrivedNOMS Sánchez OBGYNComment on above:ArrivedStart: 12-11-2024 End: 93-41-5639Dfgdacu encounter tnhwdgmoo00/18/2025 9:20 AM EDT Routine N[facility] OB [address] [place] [phone] Eric Marc, DO [address] [place] [address] Dr [place], [place] [address] NOMS BCP OBStart: 11-09-2024 End: 43-11-0651Tahrggo encounter procedureNOMS BCP OBComment on above:Arrived Start: 10-13-2024 End: 00-87-4061LJW/RhABO/Rh Lab Routine Missed menses , unspecified gestational age ([facility]) Expected: 10/13/2024 (Approximate), Expires: 10/13/2025NOMS HealthcareComment on above:Expected: 10/13/2024 (Approximate), Expires: 10/13/2025Start: 10-13-2024 End: 98-10-6387Xbqsy type and Indirect antibody screen panel - BloodType and screen Lab Routine Missed menses , unspecified gestational age ([facility]) Expected: 10/13/2024 (Approximate), Expires: 10/13/2025[facility] Work Phone: comment on above:Expected: 10/13/2024 (Approximate), Expires: 10/13/2025Start: 10-13-2024 End: 74-64-8733Okybk of abuse panel - Urine by Screen methodRapid drug screen, urine Lab Routine , unspecified gestational age ([facility]) Encounter for supervision of normal first in first trimester ([facility]) Expected: 10/13/2024 (Approximate), Expires: 10/13/2025NOMS HealthcareComment on above: Expected: 10/13/2024 (Approximate), Expires: 10/13/2025Start: 09-14-2024 End: 44-89-5991Mgomufxmnpcd / ancillary services joeojlxmqu94/22/2025 11:00 AM EDT Ancillary Procedure [facility] OB [address] [place] [phone] NOMS BCP OBStart: 08-18-2024 End: 66-62-8042Ocjvsszxkpmhq hormone (AMH)Antimullerian hormone (AMH) Lab Routine Irregular menstrual cycle Expected: 08/18/2024 (Approximate), Expires: 08/18/2025NOMS HealthcareComment on above:Expected: 08/18/2024 (Approximate), Expires: 08/18/2025Start: 08-18-2024 End: 59-60-3883XKCWLTHW Lab Routine Irregular menstrual cycle Expected: 08/18/2024 (Approximate), Expires: 08/18/2025NOMS HealthcareComment on above: Expected: 08/18/2024 (Approximate), Expires: 08/18/2025Start: 08-18-2024 End: 26-16-6312TD PelvisUS Pelvis w/ TV Imaging Routine Irregular menstrual cycle Expected: 08/18/2024, Expires: 08/18/2025NOMS HealthcareComment on above: Expected: 08/18/2024, Expires: 08/18/2025Start: 08-18-2024 End: 61-24-5934Hqkmsje encounter uyalooqvi55/25/2025 11:00 AM EDT Procedure Visit [facility] OB [address] [place] [phone] Eric Marc, [address] [place] [address] [facility] OBComment on above: ArrivedBacteria identified in Urine by CultureUrine culture Microbiology Routine Missed menses Ordered: 10/13/2024[facility] HealthcareComment on above:Ordered: 10/13/2024BC W Auto Differential panel - BloodCBC and differential Lab Routine Irregular menstrual cycle Ordered: 08/18/2024[facility] HealthcareComment on above: Ordered: 08/18/2024BC W Auto Differential panel - BloodCBC and differential Lab Routine Missed menses , unspecified gestational age ([facility]) Ordered: 10/13/2024[facility] HealthcareComment on above:Ordered: 10/13/2024HLAMYDIA TRACHOMATIS (GENITO/STI)CHLAMYDIA TRACHOMATIS (GENITO/STI) Lab Routine Exposure to STD Ordered: 12/12/2024[facility] HealthcareComment on above:Ordered: 12/12/2024 Cytology Cervical or vaginal smear or scraping studyPap Smear Pathology and Cytology Routine Well woman exam with routine gynecological exam Ordered: [facility] Work Phone: comment on above:Ordered: 08/18/2024DHEA-sulfateDHEA- sulfate Lab Routine Irregular menstrual cycle Ordered: 08/18/2024[facility] Healthcare Comment on above:Ordered: 08/18/2024Follicle stimulating hormoneFollicle stimulating hormone Lab Routine Irregular menstrual cycle Ordered: 08/18/2024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
--- OUTSIDE RECORDS SUMMARY | 2025-04-25 11:04 | XMS_ITS | Encounter Summary ---
Author Organization [facility] Address [address] [place] [address] Care Team Providers Care Production Tech Name Role Phone Unavailable Primary Care Provider Unavailabl e Encounter Details DateTypeDepartmentCare Team (Latest Contact Info)Wpvnxuxjjnp07/17/2025amboo flowsheet [facility] [address] [place] [address] Eric Marc DO [address], [facility] Social History Tobacco UseTypesPacks/DayYears UsedDateSmoking Tobacco: NeverSmokeless Tobacco: NeverAlcohol UseStandard Drinks/WeekCommentsYes0 (1 standard drink = 0.6 oz pure alcohol)Estimated Date of XporgqcjQananpmpXgp34/24/2026Based on UltrasoundSex and Gender InformationValueDate RecordedSex Assigned at BirthNot on fileLegal UmcIesfqb27/15/2023 7:21 PM EDTGender IdentityNot on fileSexual OrientationNot on filedocumented as of this encounter Plan of Treatment DateTypeDepartmentCare Team (Latest Contact Info)Rlabpzzvdem22/07/2026 3:00 PM ESTRoutine [facility] [address] [place] [address] Eric Marc DO [address] [address] documented as of this encounter Goals GoalPatient Goal TypeAssociated ProblemsRecent ProgressPatient-Stated?Author Reminders Care PlanOB RemindersNoElissa Olvera, LPNdocumented as of this encounter Visit Diagnoses Not on filedocumented in this encounter Additional Health Concerns Active ProblemsNoted DateDiagnosed DateOB Vxmrumihg98/19/2025 documented as of this encounter
--- OUTSIDE RECORDS SUMMARY | 2025-04-25 11:04 | XMS_ITS | Clinical Summary ---
Author Organization [facility] Address [address] [place] [address] Care Team Providers Care Manager Aviation Name Role Phone Unavailable Primary Care Provider Unavailabl e Allergies No known active allergies Medications MedicationSigDispense QuantityRefillsLast FilledStart DateEnd DateStatus Vit-Fe Fumarate-FA ( Vitamins) 28-0.8 MG tablet Indications:Missed mensesTake 1 tablet by mouth Daily 30 tablet 11009/12//6Active docusate sodium (Colace) 100 MG capsule Indications:Constipation, unspecified constipation typeTake 1 capsule (100 mg) by mouth 2 (two) times a day as needed for constipation 30 capsule 11012/04/110519/ctive pantoprazole (Protonix) 40 MG EC tablet Indications:Heartburn during in second trimester ([facility])Take 1 tablet (40 mg) by mouth in the morning. Take before meals. Do not crush, chew, or split. 30 tablet //6Active esomeprazole (NexIUM) [address] capsule Indications:Heartburn during in third trimester ([facility])Take 1 capsule (20 mg) by mouth in the morning. Take before meals. Do not open capsule. 30 capsule /20240427/6Active Protonix 40 MG EC tablet Indications:Heartburn during in second trimester ([facility])Take 1 tablet (40 mg) by mouth in the morning. Take before meals. Do not crush, chew, or split. 30 tablet 11151ctive Pepcid 20 MG tablet Indications:Gastroesophageal Reflux Disease,HeartburnTake 1 tablet (20 mg) by mouth Daily 30 tablet ctive methylPREDNISolone (Medrol Dospak) 4 MG tablets Indications:Impetigo,RashDay 1: 6 tablets Day 2: 5 tablets Day 3: 4 tablets Day 4: 3 tablets Day 5: 2 tablets Day 6: 1 tablet 21 tablet Discontinued(Therapy completed) Active Problems ProblemNoted DateDiagnosed VpfjEslhvgrj38/27/3815Pnvivgjdpoaps91/25/2025 Irregular menstrual cycle08/18/2024Well woman exam with routine gynecological exam08/18/2024Estimated Date of FfhjjgekImqkpiyrBtf14/24/2026ased on Ultrasound Encounters DateTypeDepartmentCare YtqcWkhquutroqw26/31/2025 10:00 AM ESTRoutine [facility] [address] [place] [phone] Comfort Jeronimo, RENAE Gastroesophageal reflux in ([facility]) (Primary Dx); Third trimester ([facility]); 36 weeks gestation of ([facility]); Heartburn during in second trimester ([facility]); Anemia, unspecified type04/25/2025amboo flowsheet [facility] [address] [place], [place] [address] [phone] Comfort Jeronimo NP 04/11/2025 1:10 PM ESTRoutine [facility] [address] [place] [phone] Luis Fernando Marc DO Third trimester ([facility]); 34 weeks gestation of ([facility]); Heartburn during in third trimester ([facility])04/11/2025amboo flowsheet [facility] [address] [place], [place] [address] [place] [address] [phone] Luis Fernando Marc DO 5Abstract [facility] [address] [place] [phone] Luis Fernando Marc, 03/27/2025 2:00 PM ESTRoutine [facility] [address] [place] [address] Luis Fernando Marc, Third trimester ([facility]); 32 weeks gestation of ([facility]); H/O iron deficiency egkfnm235Bamboo flowsheet [facility] [address] [place] [address] Luis Fernando Marc DO 03/14/2025 2:30 PM ESTRoutine [facility] [address] [place] [address] Luis Fernando Marc, 30 weeks gestation of ([facility]); Third trimester ([facility])5Bamboo flowsheet [facility] [address] [place] [address] Luis Fernando Marc DO 03/01/2025 10:40 AM ESTRoutine [facility] [address] [place] [address] Luis Fernando Marc, Third trimester ([facility]); 28 weeks gestation of ([facility])03/01/2025 10:00 AM ESTAncillary Procedure [facility] [address] [facility] [place] [address] Size of fetus inconsistent with dates, antepartum ([facility])02/08/2025 9:00 AM EDTRoutine [facility] [address] [facility] [place] [address] Luis Fernando Marc, Diabetes mellitus screening; Second trimester ([facility]); 25 weeks gestation of ([facility]); Size of fetus inconsistent with dates, antepartum ([facility])02/08/2025amboo flowsheet [facility] [address] [place] [address] Luis Fernando Marc DO 02/07/20250715Kddewd61/09/2025Clinisync Result Encounter [facility] External Department Unsolicited Luis Fernando Marc DO from Last 3 Months Family History Medical HistoryRelationNameCommentsDiabetesMaternal GrandfatherTom reedHeart diseaseMaternal GrandfatherTom reedHeart diseaseMaternal GrandmotherJoan dionisio Heart diseasePaternal GrandmotherDena reedRelationNameStatusCommentsMaternal GrandfatherTom reedAliveMaternal GrandmotherJoan chaseAlivePaternal Grandmother Pascale reedAlive Social History Tobacco UseTypesPacks/DayYears UsedDateSmoking Tobacco: NeverSmokeless Tobacco: Never Tobacco Cessation:Counseling Given: Not Answered Alcohol UseStandard Drinks/WeekCommentsYes0 (1 standard drink = 0.6 oz pure alcohol)Estimated Date of IjsgkpggQpjgaxezMqg95/24/2026ased on UltrasoundSex and Gender InformationValueDate RecordedSex Assigned at BirthNot on fileLegal OurHwcars28/15/2023 7:21 PM EDTGender IdentityNot on fileSexual OrientationNot on file Last Filed Vital Signs Vital SignReadingTime TakenCommentsBlood Vvyvlpcs027/7804/25/2025 10:27 AM EST Pulse--Temperature--Respiratory Rate--Oxygen Saturation--Inhaled Oxygen Concentration--Xifxvo10 kg (185 lb 1.9 oz)04/25/2025 10:27 AM HDOAsqoyw833.6 cm (5' 4 )08/18/2024 10:59 AM EDTBody Mass Index31.78008/18/2024 10:59 AM EDT Plan of Treatment DateTypeDepartmentCare Team (Latest Contact Info)Fpniqxetqry45/07/2026 3:00 PM ESTRoutine [facility] [address] [place] [phone] Luis Fernando Marc DO [address] [place] [address] Goals GoalPatient Goal TypeAssociated ProblemsRecent ProgressPatient-Stated?Author Reminders Care PlanOB RemindersNoElissa Olvera LPN Procedures Procedure NamePriorityDate/TimeAssociated DiagnosisCommentsPOCT URINALYSIS MMWOXNCOXjhnemb52/31/2025 10:48 AM EST Third trimester ([facility]) 36 weeks gestation of ([facility]) POCT URINALYSIS LQZXWHJUDyrkcpv52/17/2025 1:16 PM EST 34 weeks gestation of ([facility]) POCT URINALYSIS LIAQMDEILxtzyvh49/02/2025 2:22 PM EST Third trimester ([facility]) POCT URINALYSIS HSXMOSMKImyvcxl50/19/2025 2:48 PM EST 30 weeks gestation of ([facility]) Third trimester ([facility]) GLUCOSE TOLERANCE, 1 TWJIEymbfvw24/06/2025 2:37 PM EST Diabetes mellitus screening WUANlfjrnr88/06/2025 2:37 PM EST Diabetes mellitus screening POCT URINALYSIS IGBRPNKYOwgfjzb99/06/2025 10:42 AM EST 28 weeks gestation of ([facility]) US OB FOLLOW UP TRANSABDOMINAL VCWZZGWDThkbzdx94/06/2025 10:20 AM EST Size of fetus inconsistent with dates, antepartum ([facility]) POCT URINALYSIS QVGVPRHCJofcsfd30/16/2025 9:08 AM EDT Second trimester ([facility]) US OB INCOMPLETE ITEGGPX2502/01/2025 7:56 AM EDT from Last 3 Months Results * (ABNORMAL) POCT urinalysis dipstick manually resulted (04/25/2025 10:48 AM EST) Only the most recent of6 resultswithin the time period is included. ComponentValueRef RangeTest MethodAnalysis TimePerformed AtPathologist Signature Color, UAYellowClarity, UAClearGlucose, UANegativeNegative - 2000(110) ++++ mg/dLBilirubin, UANegativeNegative - 4(70) +++ mg/dLKetones, UANegativeNegative - 160(16) ++++ mg/dLSpec Grav, UA1.0151 - 1.03Blood, UANegativeNegative - 50 Iam/mcLpH, UA6.05 - 9Protein, UANegativeNegative - 2000(20) ++++ mg/dL Urobilinogen, UA1.00.2 - 12 mg/dLLeukocytes, UAPositiveNegative - 500+++ Zakia/mcL Nitrite, UANegativeNegative - PositiveSpecimen (Source)Anatomical Location / LateralityCollection Method / VolumeCollection TimeReceived BptrPpocr48/31/2025 10:48 AM EST Narrative Authorizing ProviderResult TypeResult Meche Jeronimo POINT OF CARE TEST ENTER/EDIT ORDERABLESFinal Result * Glucose tolerance, 1 hour (03/01/2025 2:37 PM EST)Specimen (Source)Anatomical Location / LateralityCollection Method / VolumeCollection TimeReceived Time BloodVenous blood specimen / Unknown Narrative Authorizing ProviderResult TypeResult StatusCorey Tari DOLAB BLOOD ORDERABLES Final ResultPerforming OrganizationAddressCity/State/ZIP CodePhone Number EXTERNAL LAB * CBC (03/01/2025 2:37 PM EST)Specimen (Source)Anatomical Location / Laterality Collection Method / VolumeCollection TimeReceived TimeBloodVenous blood specimen / Unknown Narrative Authorizing ProviderResult TypeResult StatusCorey Tari DOLAB BLOOD ORDERABLES Final ResultPerforming OrganizationAddressCity/State/ZIP CodePhone Number EXTERNAL LAB * US OB follow up transabdominal approach (03/01/2025 10:20 AM EST)Anatomical RegionLateralityModalityBodyUltrasoundSpecimen (Source)Anatomical Location / LateralityCollection Method / VolumeCollection TimeReceived Time03/01/2025 12:58 PM EST Impressions 03/01/2025 1:10 PM EST Single, live intrauterine , current sonographic age of 29 weeks and 4 days, with an estimated date of delivery of May 13, 2025 (prior WENDY May 19, 2025) * ??Estimated Weight (g) by Percentile is based upon an accurate estimated age based onlast menstrual period. ?? TRANSCRIBED BY: ? ELECTRONICALLY SIGNED BY: Angus Recio MD Narrative 03/01/2025 1:10 PM EST FINDINGS: A single, live intrauterine is present with normal cardiac rate of 142 beats per minute. Normal activity and amniotic fluid volume. Amniotic fluid index is 14 cm. ??Morphology is grossly normal. The current sonographic age is 29 weeks and ??days, based on the following measurements: ?BPD ? 7.5 cm (30 weeks, 1 days) ?Head Circumference ?27.4 cm (29 weeks, 6 days) ?Abdominal Circumference ?26.1 cm (30 weeks, 2 days) ?Femur Length ?5.2 cm (27 weeks, 5 days) ? Weight (g) by Percentile ?? 62.8 % * (prior 60%) These measurements result in an estimated date of delivery of May 09, 2025. ??The current estimated weight is 1384 grams (3 pounds, 1 ounce). ?? Procedure Note Angus Recio MD - 03/01/2025 FINDINGS: A single, live intrauterine is present with normal cardiacrate of 142 beats per minute. Normal activity and amniotic fluidvolume. Amniotic fluid index is 14 cm. Morphology is grossly normal. Thecurrent sonographic age is 29 weeks and days, based on the followingmeasurements: BPD 7.5 cm (30 weeks, 1 days) Head Circumference 27.4 cm (29 weeks, 6 days) Abdominal Circumference 26.1 cm (30 weeks, 2 days) Femur Length 5.2 cm (27 weeks, 5 days) Weight (g) by Percentile 62.8 % * (prior 60%) These measurements result in an estimated date of delivery of April. The current estimated weight is 1384 grams (3 pounds, 1ounce). IMPRESSION: Single, live intrauterine , current sonographic age of 29 weeksand 4 days, with an estimated date of delivery of May 13, 2025 (priorEDD May 19, 2025) * Estimated Weight (g) by Percentile is based upon an accurateestimated age based on last menstrual period. TRANSCRIBED BY: ELECTRONICALLY SIGNED BY: Angus Recio MD Authorizing ProviderResult TypeResult StatusCorey Tari DOIMG OB US PROCEDURES Final Result * US OB INCOMPLETE ANATOMY (02/01/2025 7:56 AM EDT)Anatomical RegionLaterality ModalityOtherSpecimen (Source)Anatomical Location / LateralityCollection Method / VolumeCollection TimeReceived Time02/01/2025 7:56 AM EDT Narrative 02/01/2025 7:58 AM EDT [facility] ?[address] ? [place] [address] ? Ultrasound Report ? Signed ? Patient: DARIEN JIMENEZ ? MR#: [id number] ?? : 2000 ?Acct:[id number] ?? Age/Sex: 24 / F ?ADM Date: 01/31/25 ?? Loc: US ? Attending Dr: Luis Fernando Marc D.O. ? Ordering Physician: Luis Fernando Marc D.O. ?? Date of Service: 01/31/25 ?? Procedure(s): US OB incomplete anatomy ?? Accession Number(s): [id number] ? cc: Steffany Metcalf M.D.; Luis Fernando Marc D.O. ? [facility] ? [address] ? [place] [address] ? Patient Name: ?? DARIEN JIMENEZ ? MRN: [id number] ? date: 2000 ?Sex: F ?? Assigned Patient Location: US ?? Current Patient Location: ? Accession/Order Number: [id number] ?? Exam Date: 01/31/2025 ??13:50 ?Report Date: 02/01/2025 ??07:56 ? At the request of: ?? LUIS FERNANDO ??TARI ??DO ? Procedure: ??US OB incomplete anatomy ? ULTRASOUND OB INCOMPLETE ANATOMY ? COMPARISON: 01/10/2025 ? CLINICAL DATA: Follow four-chamber heart ? There is a single live intrauterine gestation in breech presentation. ??The ?? reported gestational age is 24 weeks 4 days. ??The amniotic fluid volume is ?? subjectively normal. ??There is cardiac and somatic activity with heart ?? rate of 148 bpm. ??An unremarkable four-chamber heart is visualized. ? US/US OB incomplete anatomy ?? IMPRESSION: ? UNREMARKABLE FOUR-CHAMBER HEART. ? Impression dictated by: Rahel Mims M.D. ??02/01/2025 7:56 AM ? Dictation Location: [place] [address] ? Electronically authenticated by: [id number] ??Y ?? Date: 02/01/2025 ??07:56 ? Dictated By: ?Rahel Mims M.D. ? Signed By: ?02/01/25 0758 ? DD/ 0756 ? TD/TT: ? Corporate Sales Trainer: Procedure Note Radiology, Radiologist, - 02/01/2025 [place] [address] Ultrasound Report Signed Patient: DARIEN JIMENEZ MMR#: [id number] : 2000Acct:[id number] Age/Sex: 24 FADM Date: 01/31/25 Loc: US Attending Dr: Luis Fernando Marc D.O. Ordering Physician: Luis Fernando Marc D.O. Date of Service: 01/31/25 Procedure(s): US OB incomplete anatomy Accession Number(s): [id number] cc: Steffany Metcalf M.D.; Luis Fernando Marc D.O. The [address] [address] Patient Name: DARIEN JIMENEZ MRN: [id number] date: 2000 Sex: F Assigned Patient Location: US Current Patient Location: Accession/Order Number: [id number] Exam Date: 01/31/2025 13:50 Report Date: 02/01/2025 [...] Mims M.D. 02/01/2025 7:56 AM Dictation Location: [place] [address] Electronically authenticated by: [id number] Y Date: 7:56 Dictated By: Rahel Mims M.D. Signed By:02/01/258 DD/ 5 TD/TT: Corporate Sales Trainer: Authorizing ProviderResult TypeResult StatusCorey Tari DOCLINISYNC IMAGINGFinal Result from Last 3 Months Additional Health Concerns Active ProblemsNoted DateDiagnosed DateOB Mzfydaqkg15/19/2025 Insurance
--- OUTSIDE RECORDS SUMMARY | 2025-04-25 11:04 | XMS_ITS | Clinical Summary ---
Author Organization [facility] [place] [address] Care Team Providers Care Circus Trainer Name Role Phone Jaiden Saleem MD Primary Care Provider [phone] Medications No known medications Social History Tobacco UseTypesPacks/DayYears UsedDateSmoking Tobacco: NeverAlcohol UseStandard Drinks/WeekCommentsNot Asked0 (1 standard drink = 0.6 oz pure alcohol) CommentsUnknownSex and Gender InformationValueDate RecordedSex Assigned at Not on fileLegal TxwVyxenu01/03/2014 3:16 PM EDTGender IdentityNot on fileSexual OrientationNot on file Plan of Treatment Health MaintenanceDue DateLast DoneCommentsMMR (1 of 1 - Standard series) 2001Tetanus Diphtheria and Pertussis Vaccines (1 - Tdap)2007 Varicella (1 of 2 - 13+ 2-dose series)2013HPV (1 - 3-dose series) 2015MenB (1 of 2 - MenB 2-Dose Series Bexsero)2016Hepatitis B (1 of 3 - 19+ 3-dose series)2019COVID-19 ( - season)2024FLU (#1) 12/25/2024HIBAged OutNo longer eligible based on patient's age to complete this topicHepatitis AAged OutNo longer eligible based on patient's age to complete this topicMenACWYAged OutNo longer eligible based on patient's age to complete this topicNirsevimabAged OutNo longer eligible based on patient's age to complete this topicPneumococcalAged OutNo longer eligible based on patient's age to complete this topicPolioAged OutNo longer eligible based on patient's age to complete this topicRotavirusAged OutNo longer eligible based on patient's age to complete this topic Insurance MemberSubscriberPlan / Payer (Effective 2012-Present)Name:Darien Yi Relation to Subscriber:ChildName:CALIXTO YI Date of :1972 (Home) Address: [address] [place] [address] Payer ID:[id number] (NAIC) Type:Not on file Address: [place] [id number] Care Teams Team MemberRelationshipSpecialtyStart DateEnd Date Jaiden Saleem MD [address] [facility] [place] [address] [place] [address] PCP - GeneralPediatrics11/16/13
--- OUTSIDE RECORDS SUMMARY | 2025-04-25 11:04 | XMS_ITS | Clinical Summary ---
Author Organization [facility] Address [address] [place] [address] Care Team Providers Care C S S Representative Name Role Phone Unavailable Primary Care Provider Unavailabl e Social History Tobacco UseTypesPacks/DayYears UsedDateSmoking Tobacco: Never Assessed CommentsUnknownSex and Gender InformationValueDate RecordedSex Assigned at Not on fileLegal AcgSobrrj65/30/2022 12:22 AM EDTGender IdentityNot on file Sexual OrientationNot on file Last Filed Vital Signs Vital SignReadingTime TakenCommentsBlood Scgumqcj229/8402 3:21 PM EST Dgrro2862 3:21 PM ESTTemperature--Respiratory Rate--Oxygen Oduunvjjtx56% 06/09/2019 3:21 PM ESTInhaled Oxygen Concentration--Nxavas45.2 kg (135 lb) 08/21/2019 10:02 AM RQWIbculn715.6 cm (5' 4 )08/21/2019 10:01 AM EDTBody Mass Index23.17008/21/2019 10:01 AM EDT Plan of Treatment Not on file
--- OUTSIDE RECORDS SUMMARY | 2025-04-25 11:04 | XMS_ITS | Clinical Summary ---
Author Organization [facility] Address [address] [place] [address] Phone Care Team Providers Care User Support Analyst Supervisor Name Role Phone Unavailable Primary Care Provider Unavailabl e Social History Tobacco UseTypesPacks/DayYears UsedDateSmoking Tobacco: Never Assessed CommentsUnknownSex and Gender InformationValueDate RecordedSex Assigned at Not on fileLegal QcwSunxrs78/26/2022 7:52 AM ESTGender IdentityNot on fileSexual OrientationNot on file Plan of Treatment Not on file
--- OUTSIDE RECORDS SUMMARY | 2025-04-25 11:04 | XMS_ITS | Encounter Summary ---
Author Organization [facility] Address [address] [place] [address] Care Team Providers Care Fabric Cutter Name Role Phone Unavailable Primary Care Provider Unavailabl e Encounter Details DateTypeDepartmentCare Team (Latest Contact Info)Wjitocfmjqk77/31/2025Bamboo flowsheet [facility] [address] [place] [address] Comfort Jeronimo, RENAE [address] [place] [address] Social History Tobacco UseTypesPacks/DayYears UsedDateSmoking Tobacco: NeverSmokeless Tobacco: NeverAlcohol UseStandard Drinks/WeekCommentsYes0 (1 standard drink = 0.6 oz pure alcohol)Estimated Date of YojldtquIycyurkgKdn74/24/2026Based on UltrasoundSex and Gender InformationValueDate RecordedSex Assigned at BirthNot on fileLegal FbjLwvoya80/15/2023 7:21 PM EDTGender IdentityNot on fileSexual OrientationNot on filedocumented as of this encounter Plan of Treatment DateTypeDepartmentCare Team (Latest Contact Info)Lyjduxnphfw51/07/2026 3:00 PM ESTRoutine [facility] [address] [place] [address] Eric Marc DO [address] [place] [address] documented as of this encounter Goals GoalPatient Goal TypeAssociated ProblemsRecent ProgressPatient-Stated?Author Reminders Care PlanOB RemindersNoElissa Olvera, LPNdocumented as of this encounter Visit Diagnoses Not on filedocumented in this encounter Additional Health Concerns Active ProblemsNoted DateDiagnosed DateOB Hxmddkybc52/19/2025 documented as of this encounter
--- OUTSIDE RECORDS SUMMARY | 2025-04-25 11:04 | XMS_ITS | Clinical Summary ---
Author Organization [facility] Address [address] [place] [id number] Care Team Providers Care Hole Digger Operator Name Role Phone Steffany Metcalf MD Primary Care Provider [phone] Allergies No known active allergies Medications MedicationSigDispense QuantityRefillsLast FilledStart DateEnd DateStatus levonorgestrel-ethinyl estradiol (LEVORA 0.15/30, 28,) 0.15-0.03 mg per tab Take 1 tablet by mouth once daily.Active ferrous sulfate 325 mg (65 mg iron) tablet Take 1 tablet by mouth twice daily.05/02/2019Active pantoprazole DR (PROTONIX) 40 mg tablet 05/02/2019Active doxycycline hyclate (VIBRAMYCIN) 100 mg capsule Take 100 mg by mouth twice daily.Active cyanocobalamin (VITAMIN B-12) 1,000 mcg/mL Inject 1 mL intramuscularly once every month for 3 doses. 3 mL 09/13/2019Active Active Problems ProblemNoted DateDiagnosed DateChest pain, oyeasvhiycf97/10/2020Weakness 05/05/20196940Jszbbnhbscl16/10/2020Abnormal electrocardiogram (ECG) (EKG)05/05/2019 Dyspnea on isxgfrcg09/10/2020Other fecal qazxxifpglapp56/10/2020Iron deficiency yfgyws7805/01/2019 Immunizations ImmunizationAdministration DatesNext DueHaemophilus influenzae b (Hib) vaccine, unspecified pmcxsgdpelt68/03/2002,2000,2000diphtheria tetanus pertussis (DTaP) vaccine, pediatric (INFANRIX)09/30/2005diphtheria tetanus pertussis (DTaP) vaccine, unspecified rbiufphawlp54/03/2002,2000, 2000,2000hepatitis A (HepA) vaccine, 2-dose series, ped/adol (HAVRIX-PEDS, VAQTA-PEDS)12/15/2012hepatitis B (HepB) vaccine, 3-dose series, age 0 yr - 19 yr (ENGERIX B-PEDS, RECOMBIVAX HB-PEDS)2000,2000, 2000human papillomavirus (HPV4) vaccine, quadrivalent (GARDASIL)07/25/2013 ,03/14/2013,12/15/2012influenza vaccine, whole virus03/14/2013measles mumps rubella (MMR) vaccine (M-M-R II, PRIORIX)09/30/2005,10/26/2001meningococcal (MenACWY-CRM) vaccine, quadrivalent (MENVEO)11/12/2017,10/25/2012pneumococcal (PCV7) vaccine, 7 valent (PREVNAR 7)2000,2000,2000poliovirus (IPV) vaccine, inactivated (IPOL)09/30/2005,2000,2000,2000 tetanus diphtheria pertussis (Tdap) vaccine, age 7+ yr (ADACEL, BOOSTRIX) 10/25/2012 Social History Tobacco UseTypesPacks/DayYears UsedDateSmoking Tobacco: NeverSmokeless Tobacco: NeverAlcohol UseStandard Drinks/WeekCommentsNot Currently0 (1 standard drink = 0.6 oz pure alcohol)Area Deprivation IndexAnswerDate RecordedNational Score (1- 100), lower number is lower riskNot on file04/04/2020State Score (1-10), lower number is lower riskNot on file04/04/2020Data from: https://www.neighborhoodatlas.medicine.[facility].edu/. Last address used for calculationNot on file04/04/2020CommentsNoSex and Gender Information ValueDate RecordedSex Assigned at BirthNot on fileLegal YfxIojkub56/20/2020 12:05 PM ESTGender IdentityNot on fileSexual OrientationNot on file Last Filed Vital Signs Vital SignReadingTime TakenCommentsBlood Eunoyfxy144/71006/23/2019 3:52 PM EST Xoavn5629/ 3:52 PM AMNJiflkduiojx61 ??C (98.6 ??F)06/23/2019 3:52 PM EST Respiratory Hxao366006/23/2019 3:52 PM ESTOxygen Vbvvlrmlkw945%06/23/2019 3:52 PM ESTInhaled Oxygen Concentration--Ffkiza43.6 kg (138 lb)06/23/2019 3:52 PM EST Hblfmp076 cm (5' 3.39 )06/23/2019 3:52 PM ESTBody Mass Index24.15006/23/2019 3:52 PM EST Plan of Treatment Health MaintenanceDue DateLast DoneCommentsPeds To Adult Transition Initial Fxjohkqmme83/26/2013Peds To Adult Transition Annual Exmbwkpdgk31/26/2015nxiety Admipqahr85/26/2019Depression Ihzjkzmxq22/26/2019HIV Flivchtek42/26/2019 Hepatitis C Prrtdcmng78/26/2019Cervical Cancer Slslovxvy50/26/2022DTaP,Tdap,Td Vaccine (7 - Td or Tdap), 09/30/2005, 10/26/2001, Additional history existsCovid-19 Vaccine ( season)2024Influenza Vaccine (#1)Hepatitis B MsjvjnsZmrzvivjz86/27/2001, 2000, 2000HPV JwgmzuzXlducdkcu58/01/2014, 03/14/2013, 12/15/2012 Insurance Care Teams Team MemberRelationshipSpecialtyStart DateEnd Date Steffany Metcalf MD [address] [place] [address] PCP - GeneralFamily Medicine05/15/19
[2025-04-25 11:32] LABS: Hematocrit 39.1 % (36.0-48.0); Hemoglobin 13.4 g/dL (12.0-16.0); Immature Granulocytes Abs Auto 0.07 10^3/uL (0.00-0.03); Immature Granulocytes Pct Auto 0.6 % (0.0-0.5); Lymphocytes Absolute Auto 1.8 10^3/uL (1.2-3.8); Mean Corpuscular HGB Conc 34.3 g/dL (29.9-35.2); Mean Corpuscular Hemoglobin 30.0 pg (26.7-34.0); Mean Corpuscular Volume 87.5 fL (81.0-99.0); Platelet Count 180 10^3/uL (150-450); Red Blood Count 4.47 10^6/uL (4.20-5.40); White Blood Count 10.9 10^3/uL (4.0-11.0)
== END 2025-04-25 11:01 | disposition home or self-care (01) ==
LOC: LAB 11:01
PROVIDERS: PCP Family Medicine; Visit Provider Nurse Practitioner Family
DX: O26.893 Other specified pregnancy related conditions, third trimester (principal); D64.9 Anemia, unspecified; Z3A.36 36 weeks gestation of pregnancy
CPT/HCPCS: 36415; 85025; 87081